=== PATIENT | male | born 1960 | race Caucasian/White ===

== ENCOUNTER 2023-08-09 13:18 | Outpatient (OUT) | payer BC, SELFPAY ==
--- NOTE | 2023-08-09 14:29 | P.CN_ITS ---
Consult Note: HPI Data of Consult Patient: new to practice Consult date: 08/09/23 Requesting Physician: Lizabeth Nash MD Primary Care Provider: SAAD DIAS Consult Narrative Reason for consult: right knee pain Narrative: 62yom who presents for evaluation. longstanding right knee pain, worsened in past several months. has been told he needs replacement, but he is trying to prolong. has had right knee steroid injections, with waning benefit. has tried various otc meds, with minimal benefit. engages in provider directed home exercise program for >6 weeks, with minimal relief. denies adverse med side effects. cc:: CC: Lizabeth Nash MD Review of Systems ROS Status of ROS 10 or more systems reviewed and unremark able except as noted in history and below Meds Home Medications and Allergies Home Medications ?Medication ?Instructions ?Recorded ?Confirmed ?Type VOLTERAN GEL DAILY 08/09/23 History irbesartan 150 2 tab PO DAILY 08/09/23 08/09/23 History mg-hydrochlorothiazide 12.5 mg tablet mirabegron 25 mg tablet,extended 25 mg PO DAILY 08/09/23 08/09/23 History release 24 hr (Myrbetriq) lyraewaw-je-vlyyl 300 mcg-K 60 1 tab PO DAILY 08/09/23 08/09/23 History mcg-lycop 600 mcg-lutein 300 mcg tablet (Centrum Silver Ultra Men's) Allergies Allergy/AdvReac Type Severity Reaction Status Date / Time No Known Drug Allergies Allergy Verified 08/09/23 14:24 Exam Narrative Exam Narrative: Psych-alert and oriented x 3.? Attentive and appropriate, constitutionally normal, displays normal mood and af fect per situation.? There are no obvious deficits in memory, reasoning, or intellect. Extremities-lower extremities are warm with minimal edema and palpable pulses. Knee-examination of the right knee reveals tenderness to palpation over the superior, inferior, lateral, and medial aspect of the knee.? Some swelling is noted without erythema. Pain is elicited with flexion and extension of the knee both actively and passively.? Some grinding is noted with these motions.? There is no notable ligamental laxity or instability.? Coordination remains intact.? Gait remains antalgic. Assessment and Plan Assessment and Plan (1) Osteoarthritis of right knee: Qualifiers: Osteoarthritis type: primary Qualified Code(s): M17.11 - Unilateral primary osteoarthritis, right knee Plan 62yom who presents for evaluation. failed conservative measures, as noted. imaging reviewed, significant for right knee osteoarthritis. given failure of steroid and conservative measures, prudent to attempt right knee KELLY injection. he is in agreement. meds reviewed, no changes at this time. will consider genicular nb if gel fails. follow up for in office injection.
== END 2023-08-09 13:19 | disposition home or self-care (01) ==
LOC: PM 13:19
PROVIDERS: PCP Family Medicine; Visit Provider Anesthesiology
DX: M17.11 Unilateral primary osteoarthritis, right knee (principal)
CPT/HCPCS: G0463

== ENCOUNTER 2023-08-16 15:13 | Outpatient (OUT) | payer BC, SELFPAY ==
--- NOTE | 2023-08-16 15:44 | P.CN_ITS ---
Consult Note: HPI Data of Consult Patient: known to practice within the last 3 years Consult date: 08/16/23 Requesting Physician: Lizabeth Nash MD Primary Care Provider: SAAD DIAS Consult Narrative Reason for consult: right knee pain Narrative: 62yom who presents for in office right knee injection. continues to have right knee pain. cc:: CC: Lizabeth Nash MD Review of Systems ROS Status of ROS 10 or more systems reviewed and unremark able except as noted in history and below Meds Home Medications and Allergies Home Medications ?Medication ?Instructions ?Recorded ?Confirmed ?Type VOLTERAN GEL DAILY 08/09/23 History irbesartan 150 2 tab PO DAILY 08/09/23 08/09/23 History mg-hydrochlorothiazide 12.5 mg tablet mirabegron 25 mg tablet,extended 25 mg PO DAILY 08/09/23 08/09/23 History release 24 hr (Myrbetriq) ovtyanuf-ms-kmgqh 300 mcg-K 60 1 tab PO DAILY 08/09/23 08/09/23 History mcg-lycop 600 mcg-lutein 300 mcg tablet (Centrum Silver Ultra Men's) Allergies Allergy/AdvReac Type Severity Reaction Status Date / Time No Known Drug Allergies Allergy Verified 08/09/23 14:24 Exam Narrative Exam Narrative: Psych-alert and oriented x 3.? Attentive and appropriate, constitutionally normal, displays normal mood and affect per situation.? There are no obvious deficits in memory, reasoning, or intellect. Extremities-lower extremities are warm with minimal edema and palpable pulses. Knee-examination of the right knee reveals tenderness to palpation over the superior, inferior, lateral, and medial aspect of the knee.? Some swelling is noted without erythema. Pain is elicited with flexion and extension of the knee both actively and passively.? Some grinding is noted with these motions.? There is no notable ligamental laxity or instability.? Coordination remains intact.? Gait remains antalgic. Assessment and Plan Assessment and Plan (1) Osteoarthritis of right knee: Qualifiers: Osteoarthritis type: primary Qualified Code(s): M17.11 - Unilateral primary osteoarthritis, right knee Plan 62yom who presents for in office injection. risks and benefits reviewed, questions answered. follow up after procedure. Procedure: Right knee injection Medications: Durolane (KELLY) I explained the details of the procedure to the patient including the risks, benefits and alternatives. We had an informed discussion and the patient verbalized understanding and signed the consent form. All questions were answered appropriately.? A time out was performed.? After obtaining a comfortable seated position, the right knee was prepped with alcohol x3. A syringe containing the above medication was attached to a 25 guage, 1.5 inch needle under strict aseptic technique. The lateral tibial plateau was palpated.? The needle was then advanced through the subcutaneous tissue in a medial and superior direction towards the joint space.? The contents of the syringe were gently injected without any resistance. The needle was removed and pressure was applied to the injection site to decrease the incidence of ecchymosis and hematoma formation.? A sterile bandage was applied.
== END 2023-08-16 15:14 | disposition home or self-care (01) ==
LOC: PM 15:13
PROVIDERS: PCP Family Medicine; Visit Provider Anesthesiology
DX: M17.11 Unilateral primary osteoarthritis, right knee (principal)
CPT/HCPCS: 20610; J7318

== ENCOUNTER 2024-08-02 16:16 | Outpatient (RCR) | payer BC, SELFPAY | END 2024-09-05 07:18 | disposition home or self-care (01) | LOC: PT 16:16 | PROVIDERS: PCP Family Medicine; Visit Provider Orthopaedic Surgery | DX: M25.561 Pain in right knee (principal); M17.11 Unilateral primary osteoarthritis, right knee | CPT/HCPCS: 97110; 97112; 97140; 97163 ==

== ENCOUNTER 2024-11-10 09:05 | Outpatient (OUT) | payer BC, SELFPAY ==
--- NOTE | 2024-11-10 09:15 | XR_ITS ---
[facility] [place] [id number] Patient Name: GLORIA MEDINA MRN: [id number] date: 1960 Sex: M Assigned Patient Location: [facility] Current Patient Location: [facility] Accession/Order Number: [id number] Exam Date: 11/10/2024 10:04 Report Date: 11/10/2024 10:25 At the request of: JESSE ARAGNO NP Procedure: XR knee LT 4V LEFT KNEE - 4 views CLINICAL DATA: Left knee pain for the past week. No injury. COMPARISON: Right knee 04/08/2021 Weightbearing AP view of both knees as well as AP, lateral and oblique views on the left were obtained. No acute fracture or dislocation is identified. There is no disproportionate joint space narrowing. There is minor squaring off of the articular margins at the posterior patella. A tiny enthesophyte is visualized at the insertion of the quadriceps tendon. The right knee is included on the AP view and there is narrowing at the medial tibiofemoral joint compartment with minor developing subchondral lucency at the periphery of the medial femoral condyle and marginal spurring. There is a small knee effusion. No focal soft tissue swelling is noted. XR/XR knee LT 4V IMPRESSION: MINOR LEFT AND WORSENING RIGHT DEGENERATIVE CHANGE. NO ACUTE BONY FINDINGS. Impression dictated by: Breana Pope M.D. 11/10/2024 10:25 AM Dictation Location: [place] [id number] Electronically authenticated by: [id number] Y Date: 11/10/2024 10:25
--- OUTSIDE RECORDS SUMMARY | 2024-11-10 09:29 | XMS_ITS | CCD ---
Author Organization [facility] Care Team Providers Care Bufferer Name Role Phone GHANSHYAM GUILLORY Primary Care Physician Gina Pino Unavailable GHANSHYAM GUILLORY Primary Care Physician PAY ., DR DHILLON Attending Unavailable PAY ., DR DHILLON Admitting Unavailable GUILLORY ., DR GHANSHYAM Hopkins Primary Care Unavailable GUILLORY ., DR GHANSHYAM Hopkins Admitting Unavailable GUILLORY ., DR GHANSHYAM Hopkins Attending Unavailable GUILLORY ., DR GHANSHYAM Hopkins Consulting Unavailable GUSTAVO ., DR GHANSHYAM Hopkins Primary Care Unavailable Jemal Gill Primary Care Physician [phone] SANDRA GALVEZ Attending Unavailable KIANNA WANG Attending Unavailable KIANNA WANG Referring Unavailable Charity JEROME, Lizabeth Mendoza Attending Unavailable Charity JEROME, Lizabeth Mendoza Attending Unavailable MD Jemal Gill Referring Unavailable MD Jemal Gill Admitting Unavailable MD Jemal Gill Attending Unavailable MD Jemal Gill Admitting Unavailable MD Jmeal Gill Attending Unavailable Benitez Avina Attending Unavailable MD Jemal Gill Referring Unavailable MD Jemal Gill Attending Unavailable MD Jemal Gill Attending Unavailable MD Jemal Gill Attending Unavailable MD Jemal Gill Attending Unavailable MD Jemal Gill Attending Unavailable MD Jemal Gill Attending Unavailable Mercedez Polanco Attending Unavailable Tien Kelly II Attending UnavailTien Wynn II Admitting UnavailJemal Gongora Primary Care Unavailable Pacheco Mott Attending Unavailable Pacheco Mott Attending Unavailable Pacheco Mott Attending Unavailable Al Shwe[place], Pacheco Referring Unavailable Jemal Gill Attending Unavailable Jemal Gill Admitting Unavailable Jemal Gill Attending Unavailable Jemal Gill Attending Unavailable Migel Miles MD, Pacheco Unavailable Unavailgus Mott MD, Pacheco Unavailable Julio hopkins Allergies Allergy Classification Reported Allergen(s) Allergy Type Date of Onset Reaction(s) Facility (2 sources) No Known Medication Allergies; Translations: [No Known Medication Allergies] Propensity to adverse reactions (disorder) [facility] Repository Medications Current Medications Medication Drug Class(es) Dates Sig (Normalized) Sig (Original) amLODIPine 2.5 mg oral tablet (2 sources) Dihydropyridine Calcium Channel Ricardo take 1 tablet by mouth once daily Norvasc 2.5 mg tablet take 1 tablet by oral route every day 2.5 MG - Active betamethasone 0.5 mg/ml / clotrimazole 10 mg/ml topical cream (2 sources) Azole Antifungal, Corticosteroid Start: 12-16-2023 betamethasone- clotrimazole Top 0.05%-1% Crm 15 gram 1 elba, Topical, BID, 45 gram, Refill(s) 0, [facility] #[id number], 190, cm, 12/16/23 7:03:00 EDT, Height/Length Dosing, 112.5, kg, 12/16/23 7:03:00 EDT, Weight Dosing Start Date: 12/16/23 Status: Ordered CoQ10 (1 source) Start: 03-12-2021 take 1 mg by mouth once daily CoQ10 mg, Oral, Daily, Refills(s) 0 Start Date: 03/12/21 Status: Ordered diazePAM 10 mg oral tablet (4 sources) Benzodiazepine Start: 08-12-2022 take 1 tablet by mouth once daily as needed for anxiety Valium 10 mg Tab 10 mg = 1 tab(s), Oral, Daily, PRN for anxiety, TAKE 1 HOUR PRIOR TO SCHEDULED PROCEDURE, # 1 tab(s), Refills(s) 0, Pharmacy: [facility] #[id number], 190, cm, 07/29/22 15:30:00 EDT, Height/Length Dosing, 112, kg, 07/29/22 15:30:00 EDT, Weight Dosing Start Date: 08/12/22 Status: Ordered diclofenac sodium 0.01 mg/mg topical gel (6 sources) Nonsteroidal Anti-inflammatory Drug Start: 10-19-2022 Voltaren Gel 1% Gel See Instructions, Refill(s) 0, apply small amount to knee daily Start Date: 10/19/22 Status: Ordered hydroCHLOROthiazide 12.5 mg / irbesartan 150 mg oral tablet (14 sources) Thiazide Diuretic, Angiotensin 2 Receptor Ricardo Start: 07-22-2023 take 2 tablets by mouth once daily hydrochlorothi azide-irbesart an 12.5 mg-150 mg Tab See Instructions, 180 tab(s), Refill(s) 1, TAKE 2 TABLETS BY MOUTH EVERY DAY, [id number], 190, cm, 07/22/23 7:03:00 EST, Height/Length Dosing, 111.4, kg, 07/22/23 7:03:00 EST, Weight Dosing Start Date: 07/22/23 Status: Ordered Start: 03-01-2023 hydrochlorothi azide-irbesartan 12.5 mg-150 mg Tab See Instructions, 180 tab(s), Refill(s) 1, TAKE 2 TABLETS BY MOUTH EVERY DAY, [id number], 190, cm, 03/01/23 11:49:00 EDT, Height/Length Dosing, 110.3, kg, 03/01/23 11:49:00 EDT, Weight Dosing Start Date: 03/01/23 Status: Ordered Start: 12-30-2022 hydrochlorothi azide-irbesartan 12.5 mg-150 mg Tab See Instructions, 60 tab(s), Refill(s) 1, TAKE 2 TABLETS BY MOUTH EVERY DAY, [id number], 190.5, cm, 10/19/22 16:42:00 EDT, Height/Length Dosing, 111.6, kg, 10/19/22 16:42:00 EDT, Weight Dosing Start Date: 12/30/22 Status: Ordered Start: 03-12-2021 hydrochlorothi azide-irbesartan 12.5 mg-150 mg Tab 2 tab(s), Oral, Daily, 90 tab(s), Refill(s) 0, [id number], 190.5, cm, 10/19/22 16:42:00 EDT, Height/Length Dosing, 111.6, kg, 10/19/22 16:42:00 EDT, Weight Dosing Start Date: 10/19/22 Status: Ordered irbesartan 150 mg oral tablet (1 source) Angiotensin 2 Receptor Ricardo take 1 tablet by mouth every twenty-four hours Irbesartan 150 MG 1 tablet Orally Once a day Active 24 hr mirabegron 25 mg extended release oral tablet (6 sources) beta3-Adrenergic Agonist Start: 4 End: 5 take 1 tablet by mouth once daily mirabegron 25 mg oral tablet, extended release 25 mg = 1 tab(s), Oral, Daily, X 30 day(s), # 30 tab(s), Refills(s) 11, Pharmacy: [id number], 190, cm, 02/16/24 10:11:00 EDT, Height/Length Dosing, 111, kg, 02/16/24 10:11:00 EDT, Weight Dosing Start Date: 02/16/24 Stop Date: 02/10/25 Status: Ordered Start: 01-28-2023 End: 01-23-2024 take 1 tablet by mouth once daily Myrbetriq 25 mg oral tablet, extended release 25 mg = 1 tab(s), Oral, Daily, X 30 day(s), # 30 tab(s), Refills(s) 11, Pharmacy: [id number], 190, cm, 01/28/23 13:16:00 EDT, Height/Length Dosing, 111, kg, 01/28/23 13:16:00 EDT, Weight Dosing Start Date: 01/28/23 Stop Date: 01/23/24 Status: Ordered Multi For Him (1 source) Multi For Him Active Multi Vitamin+ (12 sources) Start: 1 Multi Vitamin+ Refill(s) 0 Start Date: 03/12/21 Status: Ordered Multivitamin preparation (2 sources) take 1 capsule by mouth once daily naproxen sodium 220 mg oral capsule (2 sources) Nonsteroidal Anti-inflammatory Drug Start: 1 take 1 mg by mouth every twelve hours Aleve 220 mg oral capsule mg cap(s), Oral, q12hr, Refills(s) 0 Start Date: 03/12/21 Status: Ordered End: 08-30-2024 Aleve 220 mg tablet once jack ly - No Longer Active oxybutynin chloride 5 mg oral tablet (4 sources) Cholinergic Muscarinic Antagonist Start: 08-24-2022 take 1 tablet by mouth once daily oxybutynin 5 mg Tab 5 mg = 1 tab(s), Oral, Daily, stop if having difficulty voiding, # 30 tab(s), Refills(s) 0, Pharmacy: [facility] #[id number], 190, cm, 08/17/22 14:16:00 EDT, Height/Length Dosing, 112, kg, 07/29/22 15:30:00 EDT, Weight Dosing Start Date: 08/24/22 Status: Ordered Paxlovid (300/100) (1 source) Paxlovid (300/10 0) Active tamsulosin hydrochloride 0.4 mg oral capsule (3 sources) alpha-Adrenergic Ricardo Start: 02-05-2022 take 1 capsule by mouth once daily at bedtime tamsulosin 0.4 mg Cap 0.4 mg = 1 cap(s), Oral, Bedtime, Pt. to take daily at bedtime., # 90 cap(s), Refills(s) 3, Pharmacy: [facility] #[id number], 190, cm, 08/20/21 9:08:00 EDT, Height/Length Dosing, 112, kg, 08/20/21 9:08:00 EDT, Weight Dosing Start Date: 02/05/22 Status: Ordered Start: 03-12-2021 take 1 capsule by [facility] once daily at bedtime tamsulosin 0.4 mg Cap 0.4 mg = 1 cap(s), Oral, Bedtime, Pt. to take daily at bedtime., # 90 cap(s), Refills(s) 3, [id number], cm, 03/12/21 8:36:00 EDT, Height/Length Dosing Start Date: 03/12/21 Status: Ordered Tamsulosin HCl A ctive Problems Active Problems Problem Classification Problem Date Documented Date Episodic/Chronic Alcohol-related disorders (5 sources) Alcohol abuse 03-01-2023 Chronic Cardiac dysrhythmias (5 sources) Cardiac arrhythmia 03-01-2023 Chronic Cataract (11 sources) Age-related nuclear cataract, bilateral; Translations: [Senile nuclear sclerosis] Onset: Chronic Disorders of lipid metabolism (7 sources) Hypercholesterolemia 10-15-2022 Chronic Essential hypertension (14 sources) Hypertensive disorder; Translations: [Essential hypertension] Onset: 5 03-12-2021 Chronic Genitourinary symptoms and ill-defined conditions (16 sources) Urge incontinence; Translations: [Urge incontinence of urine] Onset: 2 Chronic Genitourinary symptoms and ill-defined conditions (20 sources) Nocturia; Translations: [Nocturia] Onset: 2 Episodic Glaucoma (5 sources) Preglaucoma, unspecified, bilateral; Translations: [Glaucoma suspect, both eyes] Onset: 5 Chronic Hyperplasia of prostate (19 sources) Benign prostatic hypertrophy with outflow obstruction; Translations: [Benign prostatic hyperplasia with lower urinary tract symptoms] Onset: 2 Chronic Miscellaneous mental health disorders (1 source) Male erectile disorder; Translations: [Erectile dysfunction] Onset: 2 Chronic Mycoses (2 sources) Tinea cruris 12-16-2023 Episodic Osteoarthritis (20 sources) Arthritis; Translations: [Bilateral osteoarthritis of knees] Onset: 5 03-12-2021 Chronic Other and unspecified benign neoplasm (7 sources) Polyp of colon 10-15-2022 Episodic Other and unspecified benign neoplasm (4 sources) Benign neoplasm of choroid Episodic Other connective tissue disease (7 sources) Prepatellar bursitis 10-15-2022 Episodic Other connective tissue disease (1 source) Pain in lower limb 07-17-2024 Episodic Other diseases of bladder and urethra (2 sources) Detrusor overactivity; Translations: [Overactive bladder] Onset: 3 Chronic Other diseases of bladder and urethra (6 sources) Overactive bladder 01-28-2023 Chronic Other diseases of kidney and ureters (2 sources) Urinary tract obstruction; Translations: [Other obstructive and reflux uropathy] Onset: 3 Episodic Other ear and sense organ disorders (7 sources) Hearing loss 10-19-2022 Chronic Other eye disorders (3 sources) Unspecified chorioretinal scars, left eye; 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] Onset: 5 Chronic Other eye disorders (2 sources) Peripheral chorioretinal scar Onset: 4 04-02-2014 Chronic Other eye disorders (2 sources) Chorioretinal scar of left eye; 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] Chronic Other eye disorders (4 sources) Peripheral scars Chronic Other lower respiratory disease (7 sources) Dyspnea 10-19-2022 Episodic Other male genital disorders (13 sources) Impotence 03-12-2021 Chronic Other non-traumatic joint disorders (1 source) Pain in right knee; Translations: [Pain in right knee] Onset: 4 Episodic Other nutritional; endocrine; and metabolic disorders (1 source) Obese class I; Translations: [Body mass index (BMI) 30.0-30.9, adult] Onset: 5 Chronic Other nutritional; endocrine; and metabolic disorders (1 source) Obesity; Translations: [Obesity, unspecified] Onset: 5 Chronic Other nutritional; endocrine; and metabolic disorders (2 sources) Body mass index 30+ - obesity 09-11-2024 Chronic Other screening for suspected conditions (not mental disorders or infectious disease) (2 sources) Encounter for screening for malignant neoplasm of prostate; Translations: [Screening for malignant neoplasm done] Onset: 2 Episodic Residual codes; unclassified (4 sources) Procedure and treatment not carried out due to patient leaving prior to being seen by health care provider; Translations: [PROC AND TX NOT CARRIED OUT PT LEAVE] Onset: 3 Episodic Residual codes; unclassified (5 sources) Sleep disorder 03-01-2023 Episodic Residual codes; unclassified (1 source) Patient encounter status; Translations: [Other specified health status] Onset: 5 Episodic Retinal detachments; defects; vascular occlusion; and retinopathy (20 sources) Secondary pigmentary retinal degeneration; 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] Onset: 4 04-02-2014 Chronic Screening and history of mental health and substance abuse codes (13 sources) Ex-smoker 03-12-2021 Episodic Spondylosis; intervertebral disc disorders; other back problems (1 source) Backache; Translations: [Dorsalgia, unspecified] Onset: 5 Episodic Unclassified (13 sources) Patient encounter status 08-10-2022 Unclassified (2 sources) Finding of sensation of bladder 02-16-2024 Unclassified (1 source) Non-smoker 09-11-2024 Past or Other Problems Problem Classification Problem Date Documented Da te Episodic/Chronic Other and unspecified benign neoplasm (2 sources) Benign neoplasm of choroid Onset: 04-02-2014 04-02-2014 Episodic Unclassified (1 source) Exposure to COVID-19 virus Z20.822 Unclassified (2 sources) Retinal lesion (chief complaint) Onset: 09-01-2024 Unclassified (2 sources) changes in retinal vascular appearance (chief complaint) stable vision (chief complaint) Onset: 11-21-2019 Unclassified (2 sources) retinal evaluation (chief complaint) stable vision (chief complaint) Onset: 09-26-2018 Unclassified (2 sources) benign neoplasm (chief complaint) good, stable vision since last seen (chief complaint) (chief complaint) Onset: 04-02-2014 Viral infection (1 source) COVID-19 Results Test Name Value Interpretation Reference Range Facil ity Ambulatory Visit Summaryon 0 09-11-2024 Ambulatory Visit Summary Ambulatory Visit Summary NGHIA MEDINA :1960 Visit Date:09/11/2024 Ambulatory Visit Instructions Your Diagnosis BMI 30.0-30.9,adult Obesity (BMI 30-39.9) Nonsmoker Your Care Team Attending Physician - Jemal Gill MD Primary Care Physician - Jemal Gill MD This Is Your Medications List amlodipine (Norvasc 5 mg Tab) betamethasone-clotrima zole topical (betamethasone-clotrim azole Top 0.05%-1% Crm 15 gram) diclofenac topical (Voltaren Gel 1% Gel) hydrochlorothiazide-ir besartan (hydrochlorothiazide-i rbesartan 12.5 mg-150 mg Tab) mirabegron (mirabegron 25 mg oral tablet, extended release) multivitamin (Multi Vitamin+) Procedures Performed Arthroscopy of shoulder, Colonoscopy, Partial ostectomy of metatarsal bone, Vasectomy. Discharge Vitals Temperature (Tympanic) 36.8 ???C Heart Rate (Peripheral) 68 Respiratory Rate 18 Blood Pressure 120/76 Height 190 cm Height 75 in Weight 111.52 kg Weight 245.859 lb BMI 30.89 Medications What How Much When Why Instructions Unchanged amlodipine (Norvasc 5 mg Tab) 1 Tablets By Mouth Every day Leg pain Hypertension Hypercholesteremia Former smoker Unchanged betamethasone-clotrima zole topical (betamethasone-clotrim azole Top 0.05%-1% Crm 15 gram) 1 Application Topical 2 times a day Jock itch BMI 31.0-31.9,adult Class 1 obesity due to excess calories in adult Former smoker Unchanged diclofenac topical (Voltaren Gel 1% Gel) See instructions apply small amount to knee daily Unchanged hydrochlorothiazide-ir besartan (hydrochlorothiazide-i rbesartan 12.5 mg-150 mg Tab) See instructions TAKE 2 TABLETS BY MOUTH EVERY DAY Unchanged mirabegron (mirabegron 25 mg oral tablet, extended release) 1 Tablets By Mouth Every day Duration: 30 Days Unchanged multivitamin (Multi Vitamin+) Allergies No Known Medication Allergies Problems Ongoing - Any problem that you are currently receiving treatment for. Alcohol abuse Arrhythmia Arthritis BMI 30.0-30.9,adult BPH with urinary obstruction Bursitis, prepatellar, right Colon polyps Former smoker Hearing loss Hypercholesteremia Hypertension Incomplete bladder emptying Jock itch Leg pain Localized osteoarthritis of knees, bilateral Nocturia Nonsmoker OAB (overactive bladder) Obesity (BMI 30-39.9) Prostate cancer screening Sleep disorder SOB (shortness of breath) Historical - Any problem that you are no longer receiving treatment for. ED (erectile dysfunction) Urge incontinence Patient Survey You may receive a survey via text or e-mail asking about your office visit. Please share your experience with us by completing your survey. We appreciate your feedback and thank you for choosing us for your care. Normal [facility] Family Medicine Office/Clini c Noteon 09-11-2024 Family Medicine Office/Clinic Note Family Medicine Office/Clinic Note Chief Complaint 2m follow up HPI Staff 2m followup to starting Norvasc therapy for HTN. Has been keeping track of BP. Average is 120/70. History of Present Illness See staff HPI Review of Systems PHQ Score Initial Depression Screen Score: 0 SCORE Physical Exam Vitals & Measurements T: 36.8 ???C(Tympanic) HR: 68(Peripheral) RR: 18 BP: 120/76 SpO2: 95% HT: 75 in HT: 190 cm WT: 111.52 kg WT: 245.859 lb BMI: 30.89 General: alert, no acute distress ENMT: oral mucosa moist, Cardiovascular: regular rate and rhythm, normal peripheral perfusion Respiratory: Lungs CTA, respirations non labored Extremities: no deformity, no trauma Neurological: oriented x 4, LOC appropriate for age, CN II-XII intact, motor strength equal & normal bilaterally, speech normal Abdomen: Soft, Nontender, Non-distended, + BS Assessment/Plan 1. Hypertension (I10: Essential (primary) hypertension) At goal no issues at this time. Continue on the [facility]. Ordered: amlodipine, 5 mg = 1 tab(s), Oral, Daily, # 90 tab(s), Refills(s) 0, Pharmacy: [facility], 190, cm, 09/11/24 17:19:00 EDT, Height/Length Dosing, 111.5, kg, 09/11/24 17:19:00 EDT, Weight Dosing 2. BMI 30.0-30.9,adult (Z68.30: Body mass index [BMI] 30.0-30.9, adult) BMI education added 3. Obesity (BMI 30-39.9) (E66.9: Obesity, unspecified) Diet and exercise advised 4. Nonsmoker (Z78.9: Other specified health status) Please continue not to smoke 5. Localized osteoarthritis of knees, bilateral (M17.0: Bilateral primary osteoarthritis of knee) Continue to see Ortho. Continue working on the back and then discuss plans for the knees. 6. Back pain (M54.9: Dorsalgia, unspecified) Patient is working through physical therapy and MRI before moving to see if back surgery is the right plan for him. Orders: hydrochlorothiazide-ir besartan, See Instructions, 180 tab(s), Refill(s) 4, TAKE 2 TABLETS BY MOUTH EVERY DAY, [facility], 190, cm, 09/11/24 17:19:00 EDT, Height/Length Dosing, 111.5, kg, 09/11/24 17:19:00 EDT, Weight Dosing Follow-up No qualifying data available Problem List/Past Medical History Ongoing Alcohol abuse Arrhythmia Arthritis BMI 30.0-30.9,adult BPH with urinary obstruction Bursitis, prepatellar, right Colon polyps Former smoker Hearing loss Hypercholesteremia Hypertension Incomplete bladder emptying Leg pain Localized osteoarthritis of knees, bilateral Nocturia Nonsmoker OAB (overactive bladder) Obesity (BMI 30-39.9) Prostate cancer screening Sleep disorder SOB (shortness of breath) Historical ED (erectile dysfunction) Urge incontinence Procedure/Surgical History Arthroscopy of shoulder, Colonoscopy, Partial ostectomy of metatarsal bone, Vasectomy. Medications betamethasone-clotrima zole Top 0.05%-1% Crm 15 gram, 1 elba, Topical, BID hydrochlorothiazide-ir besartan 12.5 mg-150 mg Tab, See Instructions, 4 refills mirabegron 25 mg oral tablet, extended release, 25 mg= 1 tab(s), Oral, Daily, 11 refills Multi Vitamin+ Norvasc 5 mg Tab, 5 mg= 1 tab(s), Oral, Daily Voltaren Gel 1% Gel, See Instructions Allergies No Known Medication Allergies Social History Alcohol Current. Beer. Daily., 07/17/2024 Substance Abuse Never., 07/17/2024 Tobacco Former smoker, quit more than 30 days ago Tobacco Use:. Never Smokeless Tobacco Use:. Cigarettes, Household tobacco concerns: No. Yes, 09/11/2024 Family History Alcoholism: Father. Arthritis: Mother. Cancer: Father. Primary malignant neoplasm of lung: Mother. Immunizations Vaccine Date Status Comments influenza virus vaccine, inactivated 03/31/2024 Recorded influenza virus vaccine, inactivated 02/22/2023 Recorded SARS-CoV-2 (COVID-19) [id number] 03/17/2022 Recorded influenza virus vaccine, inactivated 04/29/2021 Recorded influenza virus vaccine, inactivated 04/22/2021 Recorded SARS-CoV-2 (COVID-19) mRNA BNT-162b2 vax 04/16/2021 Recorded SARS-CoV-2 (COVID-19) mRNA BNT-162b2 vax 2020 Recorded 2022-07-29: [id number] SARS-CoV-2 (COVID-19) Ad26 vaccine 08/18/2020 Recorded SARS-CoV-2 (COVID-19) mRNA BNT-162b2 vax 07/31/2020 Recorded 2022-07-29: [id number] SARS-CoV-2 (COVID-19) Ad26 vaccine 07/17/2020 Recorded influenza virus vaccine, inactivated 04/06/2018 Recorded influenza virus vaccine, inactivated 04/18/2017 Recorded Normal [facility] Comment on above: Result Comment: Elec tronically Signed By: Jairo JEROME, Jemal Anderson\.br\Date and Time Signed: 09/11/24 17:47 EDT Ambulatory Visit Summaryon 0 07-17-2024 Ambulatory Visit Summary Ambulatory Visit Summary NGHIA MEDINA :1960 Visit Date:07/17/2024 Ambulatory Visit Instructions Your Diagnosis Leg pain Hypertension Hypercholesteremia Former smoker Your Care Team Attending Physician - Jemal Gill MD Primary Care Physician - Jemal Gill MD This Is Your Medications List amlodipine (Norvasc 5 mg Tab) betamethasone-clotrima zole topical (betamethasone-clotrim azole Top 0.05%-1% Crm 15 gram) diclofenac topical (Voltaren Gel 1% Gel) hydrochlorothiazide-ir besartan (hydrochlorothiazide-i rbesartan 12.5 mg-150 mg Tab) mirabegron (mirabegron 25 mg oral tablet, extended release) multivitamin (Multi Vitamin+) Procedures Performed Arthroscopy of shoulder, Colonoscopy, Partial ostectomy of metatarsal bone, Vasectomy. Discharge Vitals Heart Rate (Peripheral) 72 Respiratory Rate 16 Blood Pressure 152/86 Height 190 cm Height 75 in Weight 110.2 kg Weight 242.949 lb BMI 30.53 Medications What How Much When Why Instructions New amlodipine (Norvasc 5 mg Tab) 1 Tablets By Mouth Every day Leg pain Hypertension Hypercholesteremia Former smoker Pickup at [facility] Unchanged betamethasone-clotrima zole topical (betamethasone-clotrim azole Top 0.05%-1% Crm 15 gram) 1 Application Topical 2 times a day Jock itch BMI 31.0-31.9,adult Class 1 obesity due to excess calories in adult Former smoker Unchanged diclofenac topical (Voltaren Gel 1% Gel) See instructions apply small amount to knee daily Unchanged hydrochlorothiazide-ir besartan (hydrochlorothiazide-i rbesartan 12.5 mg-150 mg Tab) See instructions TAKE 2 TABLETS BY MOUTH EVERY DAY Unchanged mirabegron (mirabegron 25 mg oral tablet, extended release) 1 Tablets By Mouth Every day Duration: 30 Days Unchanged multivitamin (Multi Vitamin+) Pharmacy Information [facility]: [address] [place], [place] [id number] [phone] Allergies No Known Medication Allergies Problems Ongoing - Any problem that you are currently receiving treatment for. Alcohol abuse Arrhythmia Arthritis BPH with urinary obstruction Bursitis, prepatellar, right Colon polyps Former smoker Hearing loss Hypercholesteremia Hypertension Incomplete bladder emptying Jock itch Leg pain Localized osteoarthritis of knees, bilateral Nocturia OAB (overactive bladder) Prostate cancer screening Sleep disorder SOB (shortness of breath) Historical - Any problem that you are no longer receiving treatment for. ED (erectile dysfunction) Urge incontinence Patient Survey You may receive a survey via text or e-mail asking about your office visit. Please share your experience with us by completing your survey. We appreciate your feedback and thank you for choosing us for your care. [facility] Ambulatory Visit Summary Ambulatory Visit Summary NGHIA MEDINA :1960 Visit Date:07/17/2024 Ambulatory Visit Instructions Your Diagnosis Leg pain Hypertension Hypercholesteremia Former smoker Your Care Team Attending Physician - Jemal Gill MD Primary Care Physician - Jemal Gill MD. This Is Your Medications List amlodipine (Norvasc 5 mg Tab) betamethasone-clotrima zole topical (betamethasone-clotrim azole Top 0.05%-1% Crm 15 gram) diclofenac topical (Voltaren Gel 1% Gel) hydrochlorothiazide-ir besartan (hydrochlorothiazide-i rbesartan 12.5 mg-150 mg Tab) mirabegron (mirabegron 25 mg oral tablet, extended release) multivitamin (Multi Vitamin+) Procedures Performed Arthroscopy of shoulder, Colonoscopy, Partial ostectomy of metatarsal bone, Vasectomy. Discharge Vitals Heart Rate (Peripheral) 72 Respiratory Rate 16 Blood Pressure 152/86 Height 190 cm Height 75 in Weight 110.2 kg Weight 242.949 lb BMI 30.53 Allergies No Known Medication Allergies Problems Ongoing - Any problem that you are currently receiving treatment for. Alcohol abuse Arrhythmia Arthritis BPH with urinary obstruction Bursitis, prepatellar, right Colon polyps Former smoker Hearing loss Hypercholesteremia Hypertension Incomplete bladder emptying Jock itch Leg pain Localized osteoarthritis of knees, bilateral Nocturia OAB (overactive bladder) Prostate cancer screening Sleep disorder SOB (shortness of breath) Historical - Any problem that you are no longer receiving treatment for. ED (erectile dysfunction) Urge incontinence Patient Survey You may receive a survey via text or e-mail asking about your office visit. Please share your experience with us by completing your survey. We appreciate your feedback and thank you for choosing us for your care. Normal [facility] Family Medicine Office/Clini c Noteon 07-17-2024 Family Medicine Office/Clinic Note Family Medicine Office/Clinic Note Chief Complaint Difficulty moving legs in the morning due to pain and muscle tightness. HPI Staff 6m follow up Patient is here for follow up on hypertension. How often are you checking your blood pressure? Daily What are your average readings? _111-150/ 57-88 Yearly BMP: 01/27/24 BUN: 19 mg/dL (01/27/24 07:49:00) Calcium Lvl: 9.1 mg/dL (01/27/24 07:49:00) Chloride: 102 mmol/L (01/27/24 07:49:00) CO2: 28 mmol/L (01/27/24 07:49:00) Creatinine: 0.8 mg/dL (01/27/24 07:49:00) eGFR: 99 mL/min/1.73 m2 (01/27/24 07:49:00) Glucose Lvl: 97 mg/dL (01/27/24 07:49:00) Potassium Lvl: 4.2 mmol/L (01/27/24 07:49:00) Sodium Lvl: 137 mmol/L (01/27/24 07:49:00) Patient is here for follow up on hyperlipidemia: Do you have side effects from the medication? no Refill needed?: _ Yearly Lipid labs: 01/27/24 Chol: 203 mg/dL High (01/27/24 07:49:00) HDL: 79 mg/dL (01/27/24 07:49:00) LDL Direct: 115 mg/dL (01/27/24 07:49:00) Tri mg/dL (01/27/24 07:49:00) VLDL: 21 mg/dL (01/27/24 07:49:00) Did see [facility] for consultation on possible knee surgery. History of Present Illness The patient is a 63-year-old male presenting with leg pain and hypertension. The leg pain, characterized by morning stiffness and soreness, has been linked to nerve impingement in the back diagnosed by a neurologist, previously managed with epidural injections. The patient mentions being active at work, engaging in roughly 10,000 steps daily, which aggravates his symptoms, relieved by sitting and leg elevation. An MRI was done about four years ago, and former sciatica pain has resolved. Hypertension shows variable home monitoring results, including one notably low measurement linked to missing medication. Consistent elevation of blood pressure readings prompts consideration of adjustments in therapy. Hypercholesterolemia is present but untreated pharmacologically due to concern about muscle symptoms, with management under evaluation. Cardiovascular evaluation via stress testing previously returned stable results. - Regular monitoring of blood pressure at home. - Discussion on adjunctive therapy for hypertension with Norvas consideration. - Review of previous cardiovascular stress testing. Review of Systems PHQ Score Initial Depression Screen Score: 0 SCORE Physical Exam Vitals & Measurements HR: 72(Peripheral) RR: 16 BP: 152/86 SpO2: 97% HT: 75 in HT: 190 cm WT: 110.2 kg WT: 242.949 lb BMI: 30.53 General: alert, no acute distress ENMT: oral mucosa moist Cardiovascular: Regular rate and rhythm, normal peripheral perfusion Respiratory: Lungs clear to auscultation, respirations non labored Extremities: no deformity, no trauma, but reports muscle tightness and soreness in the legs, particularly in the morning Neurological: oriented x 4, level of consciousness appropriate for age, CN II-XII intact, motor strength equal & normal bilaterally, speech normal Abdomen: Soft, Non-tender, Non-distended, + Bowel sounds Assessment/Plan 1. Leg pain (M79.606: Pain in leg, unspecified) Muscle stiffness linked to potential nerve impingement is addressed through recommended physical therapy prioritizing weight-bearing activities to alleviate muscle tightness. Monitoring of therapy outcomes and possible further imaging via MRI may be considered if issues persist. Ordered: amlodipine, 5 mg = 1 tab(s), Oral, Daily, # 90 tab(s), Refills(s) 0, Pharmacy: [facility], 190, cm, 07/17/24 11:42:00 EST, Height/Length Dosing, 110.2, kg, 07/17/24 11:42:00 EST, Weight Dosing 2. Hypertension (I10: Essential (primary) hypertension) Home blood pressure monitoring shows variability, suggesting adding low-dose Norvasc for better control. Scheduled reevaluation in two months will determine effectiveness and modification of therapy. Ordered: amlodipine, 5 mg = 1 tab(s), Oral, Daily, # 90 tab(s), Refills(s) 0, Pharmacy: [facility], 190, cm, 07/17/24 11:42:00 EST, Height/Length Dosing, 110.2, kg, 07/17/24 11:42:00 EST, Weight Dosing 3. Hypercholesteremia (E78.00: Pure hypercholesterolemia, unspecified) Current treatment halted to assess for exacerbation of muscle symptoms. Future re-evaluation for potential therapy once leg pain management pathway is clarified. Ordered: amlodipine, 5 mg = 1 tab(s), Oral, Daily, # 90 tab(s), Refills(s) 0, Pharmacy: [facility], 190, cm, 07/17/24 11:42:00 EST, Height/Length Dosing, 110.2, kg, 07/17/24 11:42:00 EST, Weight Dosing 4. Former smoker (Z87.891: Personal history of nicotine dependence) Please continue to not smoke. Ordered: amlodipine, 5 mg = 1 tab(s), Oral, Daily, # 90 tab(s), Refills(s) 0, Pharmacy: [facility], 190, cm, 07/17/24 11:42:00 EST, Height/Length Dosing, 110.2, kg, 07/17/24 11:42:00 EST, Weight Dosing 63-year-old male with a history of hypertension presenting with leg pain, which he relates to nerve (more content not included)... Normal [facility] Comment on above: Result Comment: Elec tronically Signed By: Jairo JEROME, Jemal [place]\.br\Date and Time Signed: 07/17/24 12:39 EST XR knee RT 4V*on 04-12-2024 XR knee RT 4V* [facility] [address] [place] [address] XRay Report Signed Patient: Nghia Medina MR#: [id number] : 1960 Acct:[id number] Age/Sex: 63 / M ADM Date: 04/12/24 Loc: [facility] Room: Type: [facility] Attending Dr: Tien Kelly II, MD Copies to: Tien Kelly MD Ordering Provider: Tien Kelly MD Date of Service: 04/12/24 XR/XR knee RT 4V*: M25.561 - Pain in right knee ([id number]) XR/XR pelvis 1-2V: M25.561 - Pain in right knee CLINICAL DATA: Anterior medial right knee pain for months with recent worsening. No injury. WEIGHTBEARING AP PELVIS: COMPARISON: None The tops of the iliac crests are not included. No fracture, dislocation or bony destruction is seen. The hip joint spaces are symmetric. There is no significant arthritic change. The SI joints are intact and show minor sclerosis. There are no soft tissue abnormalities. XR/XR pelvis 1-2V IMPRESSION: NO ACUTE BONY FINDINGS. RIGHT KNEE - 4 views COMPARISON: 07/20/2023 Weightbearing AP, lateral, skiers and patellar views were obtained. No acute fractures or dislocation are noted. There is continued moderate to severe narrowing of the medial tibiofemoral joint compartment with near bone to bone contact. Subchondral lucency at the medial femoral condyle is again noted. There is narrowing at the medial patellofemoral joint space. There is no subluxation. There is mild tricompartment marginal spurring. Loose bodies are not excluded posterior to the tibial spines medially. A tiny enthesophyte is noted at the insertion of the quadriceps tendon. A trace amount of joint fluid is seen. IMPRESSION: DEGENERATIVE CHANGES, DESCRIBED. Impression dictated by: Breana Pope M.D.04/12/2024 10:34 AM Dictation Location: [place] [address] Transcribed By: [facility] 04/12/24 1034 Dictated By: Breana Pope MD 04/12/24 1029 Signed By: 04/12/24 1034 [facility] Physician [facility] Urology Office/Clinic Noteon 02-16-2024 Urology Office/Clinic Note Urology Office/Clinic Note Chief Complaint Patient in office for 1 year f/u w/PVR HPI Staff 63 yr old male here for 1 yr f/u w/ PVR. PVR: 03/12/21 - 100 07/29/22 - 116 09/04/22 - 75 urocuff 01/28/23 - 182 02/16/24 - 0 Patient states he does notice improvement since starting on the Myrbetriq at the last office visit. States he has been doing well since the last office visit. Denies any issues/concerns at this time. Dysuria: denies Incomplete bladder emptying: denies Hematuria: denies Frequency: denies Urgency: denies Nocturia: 1 x a night Stream: steady Leaking: denies Post void dripping: denies Wearing pads/ Depends: denies Urge incontinence: denies Stress incontinence: denies Incontinence without Sensory Awareness: denies Abdominal pain: denies Flank pain: denies Sexual complaints: _ History of Present Illness Tests reviewed: reviewed UA, PVR I have reviewed the previous health record information and history for this patient from Dr. Polanco. I have reviewed and verified the staff HPI to be accurate for this encounter. Review of Systems PHQ Score Initial Depression Screen Score: 0 SCORE ROS - Provider Constitutional: denies weight loss, denies hot flashes. Eyes: denies eye problems. Gastrointestinal: denies nausea, denies vomiting. Cardiovascular: denies chest pain or angina. Integumentary: no dryness Musculoskeletal: denies musculoskeletal symptoms. ENMT: denies otolaryngeal symptoms. Respiratory: no shortness of breath. Heme/Lymph: denies easy bleeding tendency, denies easy bruising tendency. Psychiatric: no confusion, no anxiety. Genitourinary: See HPI. Physical Exam Vitals & Measurements HR: 68(Peripheral) BP: 128/74 HT: 75 in HT: 190 cm WT: 111 kg WT: 244.2 lb BMI: 30.75 General Appearance: alert, no distress, well nourished, well developed male. Assessment/Plan 63 year old male here for follow up BPH with LUTS MIKHAIL 24 (24). 1. OAB (overactive bladder) (N32.81: Overactive bladder) Previously was on Oxybutynin 5 mg qd for nocturia but stopped due to SE of dry mouth and thick cough. Started on Myrbetriq ER 25 mg qd at prior OV. Denies SEs. Feels sxs have improved on this medication and does not wish to change regimen. -Cont Myrbetriq ER 25 mg qd. Refills sent today. Call PCP for refills in future. Declined scheduled f/u at this time -Consider Botox or SNM, risks/benefits discussed. Educational pamphlets provided. 2. BPH with urinary obstruction (N40.1: Benign prostatic hyperplasia with lower urinary tract symptoms) PSA (checked by PCP): 01/2021 - 0.96 02/19/22 - 1.01 Cysto/TRUS 08/24/22 - Mild BPH, not significantly obstructing but significantly elevated bladder neck with 2-3+ trabeculated bladder. Prostate volume 20 cc. UroCuff 09/04/22 - Delayed, blunted flow curve without use of Valsalva voiding. Unobstructed nomogram but borderline lower than adequate flow and higher pressure, in the middle of all 4 quadrants. Desire to void 8 at capacity of 225 mL (voided volume of 150 ml, PVR 75 mL). Concern for small bladder capacity with abnormal sensation. IPSS 10 (1). Voiding improved after cysto, may benefit from urolift but not guaranteed. UA today negative for blood and infection. Not taking any prostate meds. - See #1 3. Incomplete bladder emptying (R33.9: Retention of urine, unspecified) PVR (cc): 03/12/21 - 100 07/29/22 - 116 09/04/22 - 75 urocuff 01/28/23 - 182 02/16/24 - 0 Emptying improved. -Timed voids q2-3hr. Follow-up With When Contact Information Collin JEROME, Mercedez Quiroz, URL, URO Only if needed [address] [place] [address]- [phone] Additional Instructions: Declined scheduled f/u at this time Patient Education Overactive Bladder, Adult I, Manju Marie, personally scribed for Dr. Polanco on 02/16/2024 10:24:03. . Documentation recorded by the scribe, Manju Marie, accurately reflects the services(s) I performed and decisions made by me. Authenticated by Dr. Polanco on 02/16/2024 11:20:54. Problem List/Past Medical History Ongoing Alcohol abuse Arrhythmia Arthritis BPH with urinary obstruction Bursitis, prepatellar, right Colon polyps Former smoker Hearing loss Hypercholesteremia Hypertension Incomplete bladder emptying Jock itch Localized osteoarthritis of knees, bilateral Nocturia OAB (overactive bladder) Prostate cancer screening Sleep disorder SOB (shortness of breath) Historical ED (erectile dysfunction) Urge incontinence Procedure/Surgical History Arthroscopy of shoulder, Colonoscopy, Partial ostectomy of metatarsal bone, Vasectomy. Medications betamethasone-clotrima zole Top 0.05%-1% Crm 15 gram, 1 elba, Topical, BID hydrochlorothiazide-ir besartan 12.5 mg-150 mg Tab, See Instructions, 1 refills mirabegron 25 mg oral tablet, extended release, 25 mg= 1 tab(s), Oral, Daily, 11 refills Multi Vitamin+ Voltaren Gel 1% (more content not included)... Normal [facility] Comment on above: Result Comment: Elec tronically Signed By: Mercedez Polanco MD\.br\Date and Time Signed: 02/16/24 11:21 EDT\.br\Electronically Co-Signed By: Manju Marie\.br\Date and Time Co-Signed: 02/16/24 10:24 EDT Ambulatory Visit Summaryon 0 01-27-2024 Ambulatory Visit Summary Ambulatory Visit Summary CAROL, CASTRO :1960 Visit Date:01/27/2024 Ambulatory Visit Instructions Your Diagnosis Arrhythmia Hypertension Sleep disorder BMI 36.0-36.9,adult Class 1 obesity due to excess calories in adult Former smoker Hypercholesteremia SOB (shortness of breath) Your Care Team Attending Physician - Jemal Gill MD Primary Care Physician - Jemal Gill MD This Is Your Medications List betamethasone-clotrima zole topical (betamethasone-clotrim azole Top 0.05%-1% Crm 15 gram) diclofenac topical (Voltaren Gel 1% Gel) hydrochlorothiazide-ir besartan (hydrochlorothiazide-i rbesartan 12.5 mg-150 mg Tab) multivitamin (Multi Vitamin+) nystatin (nystatin 500,000,000 units compounding powder) Procedures Performed Arthroscopy of shoulder, Colonoscopy, Partial ostectomy of metatarsal bone, Vasectomy. Discharge Vitals Temperature (Temporal Artery) 36.3 ?C Heart Rate (Peripheral) 72 Respiratory Rate 16 Blood Pressure 112/76 Height 190 cm Height 75 in Weight 110.0 kg Weight 242 lb BMI 30.47 What to do next Scheduled Follow-Up Appointments Wednesday 9:45 AM EDT With: Collin JEROME, Mercedez Quiroz Where: [facility] [address] [place] [address]- You Need to Complete the Following CBC w/ Auto Diff, Blood, Routine collect, 01/27/24, Order for future visit, Lab Collect, Arrhythmia Hypertension Sleep disorder BMI 36.0-36.9,adult Class 1 obesity due to excess calories in adult Former smoker Hypercholesteremia SOB (shortness of breath),... Comprehensive Metabolic Panel, Blood, Routine collect, 01/27/24, Order for future visit, Lab Collect, Arrhythmia Hypertension Sleep disorder BMI 36.0-36.9,adult Class 1 obesity due to excess calories in adult Former smoker Hypercholesteremia SOB (shortness of breath),... Lipid Panel, Blood, Routine collect, 01/27/24, Order for future visit, Lab Collect, Arrhythmia Hypertension Sleep disorder BMI 36.0-36.9,adult Class 1 obesity due to excess calories in adult Former smoker Hypercholesteremia SOB (shortness of breath),... Medications What How Much When Why Instructions Unchanged betamethasone-clotrima zole topical (betamethasone-clotrim azole Top 0.05%-1% Crm 15 gram) 1 Application Topical 2 times a day Jock itch BMI 31.0-31.9,adult Class 1 obesity due to excess calories in adult Former smoker Unchanged diclofenac topical (Voltaren Gel 1% Gel) See instructions apply small amount to knee daily Unchanged hydrochlorothiazide-ir besartan (hydrochlorothiazide-i rbesartan 12.5 mg-150 mg Tab) See instructions TAKE 2 TABLETS BY MOUTH EVERY DAY Unchanged multivitamin (Multi Vitamin+) Unchanged nystatin (nystatin 500,000,000 units compounding powder) See instructions Please apply to affected area TID. Please supply a 90 days supply. Allergies No Known Medication Allergies Problems Ongoing - Any problem that you are currently receiving treatment for. Alcohol abuse Arrhythmia Arthritis BPH with urinary obstruction Bursitis, prepatellar, right Colon polyps Former smoker Hearing loss Hypercholesteremia Hypertension Incomplete bladder emptying Jock itch Localized osteoarthritis of knees, bilateral Nocturia OAB (overactive bladder) Prostate cancer screening Sleep disorder SOB (shortness of breath) Historical - Any problem that you are no longer receiving treatment for. ED (erectile dysfunction) Urge incontinence Patient Survey You may receive a survey via text or e-mail asking about your office visit. Please share your experience with us by completing your survey. We appreciate your feedback and thank you for choosing us for your care. Normal [facility] CBC w/ Auto Diffon 4 Basophils/100 WBC (Bld) 1.4 % Normal 0.0-2.0 [facility] Comment on above: Performed By: #### 2 [id number] #### [facility] [address] [place] [address] Basophils/Leukocyte s Auto (Bld) [Pure # fraction] 0.1 E9/L Normal 0.0-0.2 [facility] Comment on above: Performed By: #### 2 [id number] #### [facility] [address] [place] [address] Eosinophils (Bld) [#/Vol] 0.4 E9/L Normal 0.0-0.5 [facility] Comment on above: Performed By: #### 2 [id number] #### [facility] [address] [place] [address] Eosinophils/100 WBC (Bld) 6.8 % Normal 0.0-8.0 [facility] Comment on above: Performed By: #### 2 [id number] #### [facility] [address] [place] [address] Erythrocyte distribution width (RBC) [Ratio] 13.6 % Normal 10.9-14.2 [facility] Comment on above: Performed By: #### 2 [id number] #### [facility] [address] [place] [address] Hematocrit (Bld) [Volume fraction] 41.8 % Normal 37.7-49.0 [facility] Comment on above: Performed By: #### 2 [id number] #### [facility] [address] [place] [address] Hemoglobin (Bld) [Mass/Vol] 14.0 g/dL Normal 13.5-17.5 [facility] Comment on above: Performed By: #### 2 [id number] #### [facility] [address] [place] [address] Lymphocytes (Bld) [#/Vol] 1.3 E9/L Normal 1.0-4.0 [facility] Comment on above: Performed By: #### 2 [id number] #### [facility] [address] [place] [address] Lymphocytes/100 WBC (Bld) 20.5 % Normal 14.0-50.0 [facility] Comment on above: Performed By: #### 2 [id number] #### [facility] [address] [place] [address] MCH (RBC) [Entitic mass] 32.5 pg Normal 27.0-34.0 [facility] Comment on above: Performed By: #### 2 [id number] #### [facility] [address] [place] [address] MCHC (RBC) [Mass/Vol] 33.5 g/dL Normal 31.4-36.0 [facility] Comment on above: Performed By: #### 2 [id number] #### [facility] [address] [place] [address] MCV (RBC) [Entitic vol] 97.1 fL Normal 80.0-100.0 [facility] Comment on above: Performed By: #### 2 [id number] #### [facility] [address] [place] [address] Monocytes (Bld) [#/Vol] 0.5 E9/L Normal 0.2-1.0 [facility] Comment on above: Performed By: #### 2 [id number] #### [facility] [address] [place] [address] Neutrophils (Bld) [#/Vol] 4.0 E9/L Normal 2.0-7.5 [facility] Comment on above: Performed By: #### 2 [id number] #### [facility] [address] [place] [address] Neutrophils/100 WBC (Bld) 62.7 % Normal 36.0-75.0 [facility] Comment on above: Performed By: #### 2 [id number] #### [facility] [address] [place] [address] Platelet mean volume (Bld) [Entitic vol] 9.6 fL Normal 6.4-10.8 [facility] Comment on above: Performed By: #### 2 [id number] #### [facility] [address] [place] [address] Platelets (Bld) [#/Vol] 242.0 E9/L Normal 150.0-500.0 [facility] Comment on above: Performed By: #### 2 [id number] #### [facility] [address] [place] [address] RBC (Bld) [#/Vol] 4.3 E12/L Normal 4.3-5.9 [facility] Comment on above: Performed By: #### 2 [id number] #### [facility] [address] [place] [address] WBC corrected for nucl RBC Auto (Bld) [#/Vol] 6.4 E9/L Normal 4.0-11.0 [facility] Comment on above: Performed By: #### 2 [id number] #### [facility] [address] [place] [address] CHEMISTRYOrdered By: SYSTEM SYSTEM on 01-27-2024 Albumin [Mass/Vol] 4.3 g/dL Normal 3.3 - 5.0 gm/dL R emisol Chem Albumin/Globulin [Mass ratio] 1.7 {ratio} Normal 1.1 - 2.2 [facility] ALP [Catalytic activity/Vol] 55 [iU]/d Normal 21 - 98 Int._Unit/L [facility] ALT No additional P-5'-P [Catalytic activity/Vol] 32 [iU]/d Normal 6 - 46 Int._Unit/L [facility] Anion gap [Moles/Vol] 11 mmol/L Normal 6 - 16 mEq/L [facility] AST [Catalytic activity/Vol] 27 [iU]/d Normal 5 - 43 Int._Unit/L [facility] Bilirubin [Mass/Vol] 1.2 mg/dL High 0.0 - 1.1 mg/dL [facility] Calcium [Mass/Vol] 9.1 mg/dL Normal 8.9 - 11. 1 mg/dL [facility] Chloride [Moles/Vol] 102 mmol/L Normal 101 - 111 mmol/L [facility] Cholesterol [Mass/Vol] 203 mg/dL High 120 - 200 mg/dL [facility] Cholesterol in HDL [Mass/Vol] 79 mg/dL Invalid Interpretation Code Rem[facility] Comment on above: Result Comment: '>= 60 LOW RISK' '<= 40 HIGH RISK' Cholesterol in LDL [Mass/Vol] 115 mg/dL Normal <=129mg/dL [facility] Cholesterol in VLDL [Mass/Vol] 21 mg/dL Normal 7 - 40 mg/dL [facility] CO2 [Moles/Vol] 28 mmol/L Normal 21 - 31 mmol/L Remis ol Chem Creatinine [Mass/Vol] 0.8 mg/dL Normal 0.5 - 1.3 mg/dL [facility] eGFR 99 mL/min/1.73 m2 Normal >=59mL/min /1.73 m2 [facility] Globulin (S) [Mass/Vol] 2.6 g/dL Normal 1.4 - 4.0 gm/dL [facility] Glucose [Mass/Vol] 97 mg/dL Normal 55 - 199 mg/dL Re misol Chem Potassium [Moles/Vol] 4.2 mmol/L Normal 3.5 - 5.3 mmol/L [facility] Protein [Mass/Vol] 6.9 g/dL Normal 6.0 - 7.8 gm/dL R emisol Chem Sodium [Moles/Vol] 137 mmol/L Normal 135 - 145 mmol/L [facility] Triglyceride [Mass/Vol] 103 mg/dL Normal <=149mg/dL [facility] Urea nitrogen [Mass/Vol] 19 mg/dL Normal 5 - 21 mg/dL [facility] Urea nitrogen/Creatinine [Mass ratio] 24 mg/mg High 10 - 20 Remisol Chem CMPon 01-27-2024 Albumin [Mass/Vol] 4.3 g/dL Normal 3.3-5.0 [facility] Comment on above: Performed By: #### 2 [id number] #### [facility] [address] [place] [address] Albumin/Globulin (S) [Mass conc ratio] 1.7 Normal 1.1-2.2 [facility] Comment on above: Performed By: #### 2 [id number] #### [facility] [address] [place] [address] ALP [Catalytic activity/Vol] 55 Int._Unit/L Normal 21-98 [facility] Comment on above: Performed By: #### 2 [id number] #### [facility] [address] [place] [address] ALT No additional P-5'-P [Catalytic activity/Vol] 32 Int._Unit/L Normal 6-46 [facility] Comment on above: Performed By: #### 2 [id number] #### [facility] [address] [place] [address] Anion gap [Moles/Vol] 11 mmol/L Normal 6-16 [facility] Comment on above: Performed By: #### 2 [id number] #### [facility] [address] [place] [address] AST [Catalytic activity/Vol] 27 Int._Unit/L Normal 5-43 [facility] Comment on above: Performed By: #### 2 [id number] #### [facility] [address] [place] [address] Bilirubin [Mass/Vol] 1.2 mg/dL High 0.0-1.1 [facility] Comment on above: Performed By: #### 2 [id number] #### [facility] [address] [place] [address] Calcium [Mass/Vol] 9.1 mg/dL Normal 8.9-11.1 [facility] Comment on above: Performed By: #### 2 [id number] #### [facility] [address] [place] [address] Chloride [Moles/Vol] 102 mmol/L Normal 101-111 [facility] Comment on above: Performed By: #### 2 [id number] #### [facility] [address] [place] [address] CO2 [Moles/Vol] 28 mmol/L Normal 21-31 [facility] Comment on above: Performed By: #### 2 [id number] #### [facility] [address] [place] [address] Creatinine [Mass/Vol] 0.8 mg/dL Normal 0.5-1.3 [facility] Comment on above: Performed By: #### 2 [id number] #### [facility] [address] [place] [address] Globulin (S) [Mass/Vol] 2.6 g/dL Normal 1.4-4.0 [facility] Comment on above: Performed By: #### 2 [id number] #### [facility] [address] [place] [address] Glucose [Mass/Vol] 97 mg/dL Normal 55-199 [facility] Comment on above: Performed By: #### 2 [id number] #### [facility] [address] [place] [address] Potassium [Moles/Vol] 4.2 mmol/L Normal 3.5-5.3 [facility] Comment on above: Performed By: #### 2 [id number] #### [facility] [address] [place] [address] Protein [Mass/Vol] 6.9 g/dL Normal 6.0-7.8 [facility] Comment on above: Performed By: #### 2 [id number] #### [facility] [address] [place] [address] Sodium [Moles/Vol] 137 mmol/L Normal 135-145 [facility] Comment on above: Performed By: #### 2 [id number] #### [facility] [address] [place] [address] Urea nitrogen [Mass/Vol] 19 mg/dL Normal 5-21 [facility] Comment on above: Performed By: #### 2 [id number] #### [facility] [address] [place] [address] Urea nitrogen/Creatinine [Mass ratio] 24 No Units High 10-20 [facility] Comment on above: Performed By: #### 2 [id number] #### [facility] [address] [place] [address] Family Medicine Office/Clini c Noteon 01-27-2024 Family Medicine Office/Clinic Note Family Medicine Office/Clinic Note HPI Staff Nghia is a 63 year old male presenting for 6 month follow up arrhythmia, htn, sleep disorder Patient is here for follow up on hypertension. How often are you checking your blood pressure? Doesnt check BP at home What are your average readings? N/A, Not checking at home Yearly BMP: 10/19/22 questions/concerns: thinking he may needs labs Brother diagnosed with osteoporosis, he ? hereditary and should he be checked for that History of Present Illness - See Staff HPI. Review of Systems PHQ Score Initial Depression Screen Score: 0 SCORE Physical Exam Vitals & Measurements T: 36.3 ?C(Temporal Artery) HR: 72(Peripheral) RR: 16 BP: 112/76 SpO2: 96% HT: 75 in HT: 190 cm WT: 110.0 kg WT: 242 lb BMI: 30.47 General: alert, no acute distress ENMT: oral mucosa moist, Cardiovascular: regular rate and rhythm, normal peripheral perfusion Respiratory: Lungs CTA, respirations non labored Extremities: no deformity, no trauma Neurological: oriented x 4, LOC appropriate for age, CN II-XII intact, motor strength equal & normal bilaterally, speech normal Abdomen: Soft, Nontender, Non-distended, + BS Assessment/Plan 1. Arrhythmia (I49.9: Cardiac arrhythmia, unspecified) NO arrythmia today. - NSR - Will monitor Ordered: CBC w/ Auto Diff Comprehensive Metabolic Panel Lab Specimen Collect [id number] Lipid Panel 2. Hypertension (I10: Essential (primary) hypertension) - BP is at goal. - NO issues. - Will do labs Ordered: CBC w/ Auto Diff Comprehensive Metabolic Panel Lab Specimen Collect [id number] Lipid Panel 3. BMI 36.0-36.9,adult (Z68.36: Body mass index [BMI] 36.0-36.9, adult) - BMI education added Ordered: CBC w/ Auto Diff Comprehensive Metabolic Panel Lab Specimen Collect [id number] Lipid Panel 4. Class 1 obesity due to excess calories in adult (E66.09: Other obesity due to excess calories) - Diet and exercise advised Ordered: CBC w/ Auto Diff Comprehensive Metabolic Panel Lab Specimen Collect [id number] Lipid Panel 5. Former smoker (Z87.891: Personal history of nicotine dependence) - Please stop smoking Ordered: CBC w/ Auto Diff Comprehensive Metabolic Panel Lipid Panel 6. Hypercholesteremia (E78.00: Pure hypercholesterolemia, unspecified) - Will recheck labs Ordered: CBC w/ Auto Diff Comprehensive Metabolic Panel Lipid Panel 7. SOB (shortness of breath) (R06.02: Shortness of breath) - Believes to be 2/2 anxiety. - Stress test was WNL. Ordered: CBC w/ Auto Diff Comprehensive Metabolic Panel Lipid Panel Will do an Osteoporosis screen at 65. Pt to remind us at that time. Follow-up No qualifying data available Patient Education BMI for Adults Problem List/Past Medical History Ongoing Alcohol abuse Arrhythmia Arthritis BPH with urinary obstruction Bursitis, prepatellar, right Colon polyps Former smoker Hearing loss Hypercholesteremia Hypertension Incomplete bladder emptying Jock itch Localized osteoarthritis of knees, bilateral Nocturia OAB (overactive bladder) Prostate cancer screening Sleep disorder SOB (shortness of breath) Historical ED (erectile dysfunction) Urge incontinence Procedure/Surgical History Arthroscopy of shoulder, Colonoscopy, Partial ostectomy of metatarsal bone, Vasectomy. Medications betamethasone-clotrima zole Top 0.05%-1% Crm 15 gram, 1 elba, Topical, BID, Self Directed hydrochlorothiazide-ir besartan 12.5 mg-150 mg Tab, See Instructions, 1 refills Multi Vitamin+ Voltaren Gel 1% Gel, See Instructions Allergies No Known Medication Allergies Social History Tobacco Former smoker, quit more than 30 days ago Tobacco Use:. Never Smokeless Tobacco Use:., 01/27/2024 Family History Alcoholism: Father. Arthritis: Mother. Cancer: Father. Primary malignant neoplasm of lung: Mother. Immunizations Vaccine Date Status Comments influenza virus vaccine, inactivated 02/22/2023 Recorded SARS-CoV-2 (COVID-19) [id number].[id number] 03/17/2022 Recorded influenza virus vaccine, inactivated 04/29/2021 Recorded influenza virus vaccine, inactivated 04/22/2021 Recorded SARS-CoV-2 (COVID-19) mRNA BNT-162b2 vax 04/16/2021 Recorded SARS-CoV-2 (COVID-19) mRNA BNT-162b2 vax 2020 Recorded 2022-07-29: TPV60 SARS-CoV-2 (COVID-19) Ad26 vaccine 08/18/2020 Recorded SARS-CoV-2 (COVID-19) mRNA BNT-162b2 vax 07/31/2020 Recorded 2022-07-29: TPV50 SARS-CoV-2 (COVID-19) Ad26 vaccine 07/17/2020 Recorded influenza virus vaccine, inactivated 04/06/2018 Recorded influenza virus vaccine, inactivated 04/18/2017 Recorded Normal [facility] Comment on above: Result Comment: Elec tronically Signed By: Jairo JEROME, Jemal Mckeon.br\Date and Time Signed: 01/27/24 08:37 EDT HEMATOLOGYOrdered By: SYSTEM SYSTEM on 01-27-2024 Basophils/100 WBC (Bld) 1.4 % Normal 0.0 - 2.0 % Remisol Heme Basophils/Leukocyte s Auto (Bld) [Pure # fraction] 0.1 E9/L Normal 0.0 - 0.2 E9/L Remisol Heme Eosinophils (Bld) [#/Vol] 0.4 E9/L Normal 0.0 - 0.5 E9/L Remisol Heme Eosinophils/100 WBC (Bld) 6.8 % Normal 0.0 - 8.0 % Remisol Heme Erythrocyte distribution width (RBC) [Ratio] 13.6 % Normal 10.9 - 14.2 % Remisol Heme Hematocrit (Bld) [Volume fraction] 41.8 % Normal 37.7 - 49.0 % Remisol Heme Hemoglobin (Bld) [Mass/Vol] 14.0 g/dL Normal 13.5 - 17.5 gm/dL Remisol Heme Lymphocytes (Bld) [#/Vol] 1.3 E9/L Normal 1.0 - 4.0 E9/L Remisol Heme Lymphocytes/100 WBC (Bld) 20.5 % Normal 14.0 - 50.0 % Remisol Heme MCH (RBC) [Entitic mass] 32.5 pg Normal 27.0 - 34.0 pg Remisol Heme MCHC (RBC) [Mass/Vol] 33.5 g/dL Normal 31.4 - 36.0 gm/dL Remisol Heme MCV (RBC) [Entitic vol] 97.1 fL Normal 80.0 - 100.0 fL Remisol Heme Monocytes (Bld) [#/Vol] 0.5 E9/L Normal 0.2 - 1.0 E9/L Remisol Heme Monocytes/100 WBC (Bld) 8.6 % Normal 4.0 - 14.0 % Remisol Heme Neutrophils (Bld) [#/Vol] 4.0 E9/L Normal 2.0 - 7.5 E9/L Remisol Heme Neutrophils/100 WBC (Bld) 62.7 % Normal 36.0 - 75.0 % Remisol Heme Platelet mean volume (Bld) [Entitic vol] 9.6 fL Normal 6.4 - 10.8 fL Remisol Heme Platelets (Bld) [#/Vol] 242.0 E9/L Normal 150.0 - 500.0 E9/L Remisol Heme RBC (Bld) [#/Vol] 4.3 E12/L Normal 4.3 - 5.9 E12/L Re misol Heme WBC corrected for nucl RBC Auto (Bld) [#/Vol] 6.4 E9/L Normal 4.0 - 11.0 E9/L Remisol Heme Lipid Panelon 01-27-2024 Cholesterol [Mass/Vol] 203 mg/dL High 120-200 [facility] Comment on above: Performed By: #### 2 [id number] #### [facility] [address] [place] [address] Cholesterol in HDL [Mass/Vol] 79 mg/dL Invalid Interpretation Code [facility] Comment on above: Result Comment: '>= 60 LOW RISK' '<= 40 HIGH RISK' Performed By: #### 2 [id number] #### [facility] [address] [place] [address] Cholesterol in LDL [Mass/Vol] 115 mg/dL Normal <=129 [facility] Comment on above: Performed By: #### 2 [id number] #### [facility] [address] [place] [address] Cholesterol in VLDL [Mass/Vol] 21 mg/dL Normal 7-40 [facility] Comment on above: Performed By: #### 2 [id number] #### [facility] [address] [place] [address] Triglyceride [Mass/Vol] 103 mg/dL Normal <=149 [facility] Comment on above: Performed By: #### 2 [id number] #### [facility] [address] [place] [address] eGFRon 01-27-2024 eGFR 99 mL/min/1.73 m2 Normal >=59 [facility] Comment on above: Order Comment: Order added by Discern Expert. Performed By: #### 1 [id number] #### [facility] [address] [place] [address] Ambulatory Visit Summaryon 0 12-16-2023 Ambulatory Visit Summary Ambulatory Visit Summary NGIHA MEDINA :1960 Visit Date:12/16/2023 Ambulatory Visit Instructions Your Diagnosis Jock itch BMI 31.0-31.9,adult Class 1 obesity due to excess calories in adult Former smoker Your Care Team Attending Physician - Jemal Gill MD Primary Care Physician - Jemal Gill MD This Is Your Medications List diclofenac topical (Voltaren Gel 1% Gel) hydrochlorothiazide-ir besartan (hydrochlorothiazide-i rbesartan 12.5 mg-150 mg Tab) mirabegron (Myrbetriq 25 mg oral tablet, extended release) multivitamin (Multi Vitamin+) Procedures Performed Arthroscopy of shoulder, Colonoscopy, Partial ostectomy of metatarsal bone, Vasectomy. Discharge Vitals Temperature (Temporal Artery) 36.4 ?C Heart Rate (Peripheral) 72 Respiratory Rate 16 Blood Pressure 136/78 Height 190 cm Height 75 in Weight 112.5 kg Weight 247.5 lb BMI 31.16 What to do next Scheduled Follow-Up Appointments 2023 7:00 AM EDT With: Jairo JEROME, Jemal [facility] Where: [facility] [address] [address]- Wednesday 9:45 AM EDT With: Collin JEROME, Mercedez Quiroz Where: [facility] [address] [place] [address]- Medications What How Much When Instructions Unchanged diclofenac topical (Voltaren Gel 1% Gel) See instructions apply small amount to knee daily Unchanged hydrochlorothiazide-ir besartan (hydrochlorothiazide-i rbesartan 12.5 mg-150 mg Tab) See instructions TAKE 2 TABLETS BY MOUTH EVERY DAY Unchanged mirabegron (Myrbetriq 25 mg oral tablet, extended release) 1 Tablets By Mouth Every day Duration: 30 Days Unchanged multivitamin (Multi Vitamin+) Allergies No Known Medication Allergies Problems Ongoing - Any problem that you are currently receiving treatment for. Alcohol abuse Arrhythmia Arthritis BPH with urinary obstruction Bursitis, prepatellar, right Colon polyps Former smoker Hearing loss Hypercholesteremia Hypertension Incomplete bladder emptying Jock itch Localized osteoarthritis of knees, bilateral Nocturia OAB (overactive bladder) Prostate cancer screening Sleep disorder SOB (shortness of breath) Historical - Any problem that you are no longer receiving treatment for. ED (erectile dysfunction) Urge incontinence Patient Survey You may receive a survey via text or e-mail asking about your office visit. Please share your experience with us by completing your survey. We appreciate your feedback and thank you for choosing us for your care. Normal [facility] Family Medicine Office/Clini c Noteon 12-16-2023 Family Medicine Office/Clinic Note Family Medicine Office/Clinic Note HPI Staff Nghia is a 63 year old male presenting for acute visit Acute: rash Duration: 3-4 weeks New or Recurrent: recurrent but many years ago Location: fold of groin Description: reddish type rash, no bumps, it's somewhat weeping Rash symptoms: feels it's fungal, jock itch, itches Used antifungal jock itch spray and cream but it didn't clear it up History of Present Illness Patient presents for jock itch. Patient has had this 5 years ago. Patient said it was extremely hard to get rid of as the patient is constantly sweating in this hot sun. Review of Systems PHQ Score Initial Depression Screen Score: 0 SCORE Physical Exam Vitals & Measurements T: 36.4 ?C(Temporal Artery) HR: 72(Peripheral) RR: 16 BP: 136/78 SpO2: 97% HT: 75 in HT: 190 cm WT: 112.5 kg WT: 247.5 lb BMI: 31.16 Red erythema in both groin creases with satellite lesions. White edge. Assessment/Plan 1. Jock itch (B35.6: Tinea cruris) - Will use nystatin powder - Will use topical antifungal and steroid as the area is swollen - Advised the patient to call me on wednesday to let me know how it is Ordered: betamethasone-clotrima zole topical, 1 elba, Topical, BID, 45 gram, Refill(s) 0, [id number], 190, cm, 12/16/23 7:03:00 EDT, Height/Length Dosing, 112.5, kg, 12/16/23 7:03:00 EDT, Weight Dosing 2. BMI 31.0-31.9,adult (Z68.31: Body mass index [BMI] 31.0-31.9, adult) BMI education added Ordered: betamethasone-clotrima zole topical, 1 elba, Topical, BID, 45 gram, Refill(s) 0, [id number], 190, cm, 12/16/23 7:03:00 EDT, Height/Length Dosing, 112.5, kg, 12/16/23 7:03:00 EDT, Weight Dosing 3. Class 1 obesity due to excess calories in adult (E66.09: Other obesity due to excess calories) Diet and exercise advised Ordered: betamethasone-clotrima zole topical, 1 elba, Topical, BID, 45 gram, Refill(s) 0, [id number], 190, cm, 12/16/23 7:03:00 EDT, Height/Length Dosing, 112.5, kg, 12/16/23 7:03:00 EDT, Weight Dosing 4. Former smoker (Z87.891: Personal history of nicotine dependence) Please continue not to smoke Ordered: betamethasone-clotrima zole topical, 1 elba, Topical, BID, 45 gram, Refill(s) 0, [id number], 190, cm, 12/16/23 7:03:00 EDT, Height/Length Dosing, 112.5, kg, 12/16/23 7:03:00 EDT, Weight Dosing Orders: nystatin, See Instructions, Please apply to affected area TID. Please supply a 90 days supply., # 1 EA, Refills(s) 0, Pharmacy: [id number], 190, cm, 12/16/23 7:03:00 EDT, Height/Length Dosing, 112.5, kg, 12/16/23 7:03:00 EDT, Weight Dosing Follow-up No qualifying data available Patient Education BMI for Adults Problem List/Past Medical History Ongoing Alcohol abuse Arrhythmia Arthritis BPH with urinary obstruction Bursitis, prepatellar, right Colon polyps Former smoker Hearing loss Hypercholesteremia Hypertension Incomplete bladder emptying Jock itch Localized osteoarthritis of knees, bilateral Nocturia OAB (overactive bladder) Prostate cancer screening Sleep disorder SOB (shortness of breath) Historical ED (erectile dysfunction) Urge incontinence Procedure/Surgical History Arthroscopy of shoulder, Colonoscopy, Partial ostectomy of metatarsal bone, Vasectomy. Medications betamethasone-clotrima zole Top 0.05%-1% Crm 15 gram, 1 elba, Topical, BID hydrochlorothiazide-ir besartan 12.5 mg-150 mg Tab, See Instructions, 1 refills Multi Vitamin+ Myrbetriq 25 mg oral tablet, extended release, 25 mg= 1 tab(s), Oral, Daily, 11 refills nystatin 500,000,000 units compounding powder, See Instructions Voltaren Gel 1% Gel, See Instructions Allergies No Known Medication Allergies Social History Tobacco Former smoker, quit more than 30 days ago Tobacco Use:. Never Smokeless Tobacco Use:., 12/16/2023 Family History Alcoholism: Father. Arthritis: Mother. Cancer: Father. Primary malignant neoplasm of lung: Mother. Immunizations Vaccine Date Status Comments influenza virus vaccine, inactivated 02/22/2023 Recorded SARS-CoV-2 (COVID-19) [id number] 03/17/2022 Recorded influenza virus vaccine, inactivated 04/29/2021 Recorded influenza virus vaccine, inactivated 04/22/2021 Recorded SARS-CoV-2 (COVID-19) mRNA BNT-162b2 vax 04/16/2021 Recorded SARS-CoV-2 (COVID-19) mRNA BNT-162b2 vax 2020 Recorded 2022-07-29: TPV60 SARS-CoV-2 (COVID-19) Ad26 vaccine 08/18/2020 Recorded SARS-CoV-2 (COVID-19) mRNA BNT-162b2 vax 07/31/2020 Recorded 2022-07-29: TPV50 SARS-CoV-2 (COVID-19) Ad26 vaccine 07/17/2020 Recorded influenza virus vaccine, inactivated 04/06/2018 Recorded influenza virus vaccine, inactivated 04/18/2017 Recorded [facility] Comment on above: Result Comment: Elec tronically Signed By: Jairo JEROME, Jemal [place]\.br\Date and Time Signed: 12/16/23 07:47 EDT Consultation Noteon 08-17-19 Consultation Note [id number] 0TIFF [facility] Consultation Note [id number] 0TIFF [facility] Consultation Noteon 08-11-19 Consultation Note [id number] 0TIFF [facility] Consultation Noteon 07-23-19 Consultation Note [id number] 0TIFF [facility] Ambulatory Visit Summaryon 0 07-22-2023 Ambulatory Visit Summary NGHIA MEDINA :1960 Visit Date:07/22/2023 Ambulatory Visit Instructions Your Diagnosis Arthritis Hypertension Sleep disorder Alcohol abuse Arrhythmia Your Care Team Attending Physician - Jemal Gill MD Primary Care Physician - Jemal Gill MD This Is Your Medications List diclofenac topical (Voltaren Gel 1% Gel) hydrochlorothiazide-ir besartan (hydrochlorothiazide-i rbesartan 12.5 mg-150 mg Tab) mirabegron (Myrbetriq 25 mg oral tablet, extended release) multivitamin (Multi Vitamin+) Procedures Performed Arthroscopy of shoulder, Colonoscopy, Partial ostectomy of metatarsal bone, Vasectomy. Discharge Vitals Temperature (Temporal Artery) 36.4 ?C Heart Rate (Peripheral) 76 Respiratory Rate 16 Blood Pressure 130/78 Height 190 cm Height 75 in Weight 111.4 kg Weight 245.08 lb BMI 30.86 What to do next Scheduled Follow-Up Appointments Wednesday 9:45 AM EDT With: Mercedez Polanco MD Where: [facility] Ambulatory Visit Summary NGHIA MEDINA :1960 Visit Date:07/22/2023 Ambulatory Visit Instructions Your Diagnosis Arthritis Hypertension Sleep disorder Alcohol abuse Arrhythmia Your Care Team Attending Physician - Jemal Gill MD Primary Care Physician - Jemal Gill MD This Is Your Medications List diclofenac topical (Voltaren Gel 1% Gel) hydrochlorothiazide-ir besartan (hydrochlorothiazide-i rbesartan 12.5 mg-150 mg Tab) mirabegron (Myrbetriq 25 mg oral tablet, extended release) multivitamin (Multi Vitamin+) Procedures Performed Arthroscopy of shoulder, Colonoscopy, Partial ostectomy of metatarsal bone, Vasectomy. Discharge Vitals Temperature (Temporal Artery) 36.4 ?C Heart Rate (Peripheral) 76 Respiratory Rate 16 Blood Pressure 130/78 Height 190 cm Height 75 in Weight 111.4 kg Weight 245.08 lb BMI 30.86 What to do next Scheduled Follow-Up Appointments Wednesday 9:45 AM EDT With: Mercedez Polanco MD Where: [facility] Family Medicine Office/Clini c Noteon 07-22-2023 Family Medicine Office/Clinic Note HPI Staff Nghia is a 62 year old male presenting for 3 month follow up sleep apnea Sleep study done 05/03/23 Doesn't think he'll go the route of a c pap. He doesn't think it showed obstructive sleep apnea Questions/concerns: saw ortho yesterday discussed right knee replacement had some xrays done close to time about the replacement. Plan is to wear brace try pain management for injections flu: UTD 02/22/23 History of Present Illness Pt presents for follow up. - Needing a knee replacement. - Bps are WNL. NO issues with meds. - Having some palpitations every few months. Unsure when they come. Review of Systems PHQ Score Initial Depression Screen Score: 0 SCORE Physical Exam Vitals & Measurements T: 36.4 ?C(Temporal Artery) HR: 76(Peripheral) RR: 16 BP: 130/78 SpO2: 96% HT: 75 in HT: 190 cm WT: 111.4 kg WT: 245.08 lb BMI: 30.86 General: alert, no acute distress ENMT: oral mucosa moist, Cardiovascular: regular rate and rhythm, normal peripheral perfusion Respiratory: Lungs CTA, respirations non labored Extremities: no deformity, no trauma Neurological: oriented x 4, LOC appropriate for age, CN II-XII intact, motor strength equal & normal bilaterally, speech normal Abdomen: Soft, Nontender, Non-distended, + BS Assessment/Plan 1. Arthritis (M19.90: Unspecified osteoarthritis, unspecified site) - Follow up with Dr. Wang - Discussed options 2. Hypertension (I10: Essential (primary) hypertension) - Well controlled - No issues at this time. 3. Sleep disorder (G47.9: Sleep disorder, unspecified) - Mild LAUREEN - Pt would like to work on diet to see if this resolves with weight loss 4. Alcohol abuse (F10.10: Alcohol abuse, uncomplicated) - Discussed how drinking on the weekends can cause arrythmias on mondays. - Pt will monitor 5. Arrhythmia (I49.9: Cardiac arrhythmia, unspecified) - As above. - Not enough episodes to get a holter. - if patient is having symptoms, please come in to get an EKG. Orders: hydrochlorothiazide-ir besartan, See Instructions, 180 tab(s), Refill(s) 1, TAKE 2 TABLETS BY MOUTH EVERY DAY, [id number], 190, cm, 07/22/23 7:03:00 EST, Height/Length Dosing, 111.4, kg, 07/22/23 7:03:00 EST, Weight Dosing Follow-up No qualifying data available Patient Education Hypertension, Adult Problem List/Past Medical History Ongoing Alcohol abuse Arrhythmia Arthritis BPH with urinary obstruction Bursitis, prepatellar, right Colon polyps Former smoker Hearing loss Hypercholesteremia Hypertension Incomplete bladder emptying Localized osteoarthritis of knees, bilateral Nocturia OAB (overactive bladder) Prostate cancer screening Sleep disorder SOB (shortness of breath) Historical ED (erectile dysfunction) Urge incontinence Procedure/Surgical History Arthroscopy of shoulder, Colonoscopy, Partial ostectomy of metatarsal bone, Vasectomy. Medications hydrochlorothiazide-ir besartan 12.5 mg-150 mg Tab, See Instructions, 1 refills Multi Vitamin+ Myrbetriq 25 mg oral tablet, extended release, 25 mg= 1 tab(s), Oral, Daily, 11 refills Voltaren Gel 1% Gel, See Instructions Allergies No Known Medication Allergies Social History Tobacco Former smoker, quit more than 30 days ago Tobacco Use:. Never Smokeless Tobacco Use:., 07/22/2023 Family History Alcoholism: Father. Arthritis: Mother. Cancer: Father. Primary malignant neoplasm of lung: Mother. Immunizations Vaccine Date Status Comments influenza virus vaccine, inactivated 02/22/2023 Recorded SARS-CoV-2 (COVID-19) [id number] 03/17/2022 Recorded influenza virus vaccine, inactivated 04/29/2021 Recorded influenza virus vaccine, inactivated 04/22/2021 Recorded SARS-CoV-2 (COVID-19) mRNA BNT-162b2 vax 04/16/2021 Recorded SARS-CoV-2 (COVID-19) mRNA BNT-162b2 vax 2020 Recorded 2022-07-29: TPV60 SARS-CoV-2 (COVID-19) Ad26 vaccine 08/18/2020 Recorded SARS-CoV-2 (COVID-19) mRNA BNT-162b2 vax 07/31/2020 Recorded 2022-07-29: TPV50 SARS-CoV-2 (COVID-19) Ad26 vaccine 07/17/2020 Recorded influenza virus vaccine, inactivated 04/06/2018 Recorded influenza virus vaccine, inactivated 04/18/2017 Recorded Normal [facility] Comment on above: Result Comment: Elec tronically Signed By: Jairo JEROME, Jemal Pierrebr\Date and Time Signed: 07/22/23 07:18 EST Patient Educationon 07-22-19 Patient Education Cardiovascular Hypertension, Adult High blood pressure (hypertension) is when the force of blood pumping through the arteries is too strong. The arteries are the blood vessels that carry blood from the heart throughout the body. Hypertension forces the heart to work harder to pump blood and may cause arteries to become narrow or stiff. Untreated or uncontrolled hypertension can lead to a heart attack, heart failure, a stroke, kidney disease, and other problems. A blood pressure reading consists of a higher number over a lower number. Ideally, your blood pressure should be below 120/80. The first ( top ) number is called the systolic pressure. It is a measure of the pressure in your arteries as your heart beats. The second ( bottom ) number is called the diastolic pressure. It is a measure of the pressure in your arteries as the heart relaxes. What are the causes? The exact cause of this condition is not known. There are some conditions that result in high blood pressure. What increases the risk? Certain factors may make you more likely to develop high blood pressure. Some of these risk factors are under your control, including: ? Smoking. ? Not getting enough exercise or physical activity. ? Being overweight. ? Having too much fat, sugar, calories, or salt (sodium) in your diet. ? Drinking too much alcohol. Other risk factors include: ? Having a personal history of heart disease, diabetes, high cholesterol, or kidney disease. ? Stress. ? Having a family history of high blood pressure and high cholesterol. ? Having obstructive sleep apnea. ? Age. The risk increases with age. What are the signs or symptoms? High blood pressure may not cause symptoms. Very high blood pressure (hypertensive crisis) may cause: ? Headache. ? Fast or irregular heartbeats (palpitations). ? Shortness of breath. ? Nosebleed. ? Nausea and vomiting. ? Vision changes. ? Severe chest pain, dizziness, and seizures. How is this diagnosed? This condition is diagnosed by measuring your blood pressure while you are seated, with your arm resting on a flat surface, your legs uncrossed, and your feet flat on the floor. The cuff of the blood pressure monitor will be placed directly against the skin of your upper arm at the level of your heart. Blood pressure should be measured at least twice using the same arm. Certain conditions can cause a difference in blood pressure between your right and left arms. If you have a high blood pressure reading during one visit or you have normal blood pressure with other risk factors, you may be asked to: ? Return on a different day to have your blood pressure checked again. ? Monitor your blood pressure at home for 1 week or longer. If you are diagnosed with hypertension, you may have other blood or imaging tests to help your health care provider understand your overall risk for other conditions. How is this treated? This condition is treated by making healthy lifestyle changes, such as eating healthy foods, exercising more, and reducing your alcohol intake. You may be referred for counseling on a healthy diet and physical activity. Your health care provider may prescribe medicine if lifestyle changes are not enough to get your blood pressure under control and if: ? Your systolic blood pressure is above 130. ? Your diastolic blood pressure is above 80. Your personal target blood pressure may vary depending on your medical conditions, your age, and other factors. Follow these instructions at home: Eating and drinking ? Eat a diet that is high in fiber and potassium, and low in sodium, added sugar, and fat. An example of this eating plan is called the DASH diet. DASH stands for Dietary Approaches to Stop Hypertension. To eat this way: ? Eat plenty of fresh fruits and vegetables. Try to fill one half of your plate at each meal with fruits and vegetables. ? Eat whole grains, such as whole-wheat pasta, brown rice, or whole-grain bread. Fill about one fourth of your plate with whole grains. ? Eat or drink low-fat dairy products, such as skim milk or low-fat yogurt. ? Avoid fatty cuts of meat, processed or cured meats, and poultry with skin. Fill about one fourth of your plate with lean proteins, such as fish, chicken without skin, beans, eggs, or tofu. ? Avoid pre-made and processed foods. These tend to be higher in sodium, added sugar, and fat. ? Reduce your daily sodium intake. Many people with hypertension should eat less than 1,500 mg of sodium a day. ? Do not drink alcohol if: ? Your health care provider tells you not to drink. ? You are , may be , or are planning to become . ? If you drink alcohol: ? Limit how much you have to: ? 0?1 drink a day for women. ? 0?2 drinks a day for men. ? Know how much alcohol is in your drink. In the [place] one drink equals one 12 oz bottle of beer (355 mL), one 5 oz glass of wine (148 mL), or one 1? oz glass (more content not included)... Normal [facility] Consultation Noteon 06-04-19 Consultation Note [id number]#1.0 0TIFF Normal [facility] Sleep Studieson 05-12-2023 Sleep Studies [id number]#1. 00TIFF Normal [facility] Stress EKG Tracingson 2022 Stress EKG Tracings [id number]#1. 00TIFF Normal [facility] Stress EKG Tracings [id number]#1. 00TIFF Normal [facility] Comment on above: Other Comment: wrong date NM Myocardial Spect Rest/Str ess 1 Dayon 05-04-2023 NM Myocardial Spect Rest/Stress 1 Day Exam Date/Time: 04/30/2023 10:54 EST Reason for Exam: R06.02;Shortness of breath (SOB) Report PROCEDURE: Treadmill exercise stress test. INDICATIONS: Shortness of breath. PROCEDURE DETAILS: The patient was stressed according to the Moises protocol, exercised for 6 minutes 51 seconds achieving a heart rate of 141 beats per minute which was 89% maximal age-predicted heart rate and 7.80 METS. The patient's blood pressure response was hypertensive at 225/81. The patient did not have chest pain. EKG was sinus rhythm at baseline. With peak stress, there were no significant EKG changes. Recovery phase was normal with the exception of occasional premature ventricular contractions. Review of raw images demonstrated motion artifact and diaphragmatic attenuation due to body habitus. The patient received 9.5 mCi of Cardiolite for rest images and 29.5 mCi of Cardiolite for stress images. FINDINGS: Uptake of the tracer was homogeneous with no identifiable ischemia or infarction. The TID ratio was 1.06. The ejection fraction was 64%. End-diastolic volume was 110 mL, which is normal. CONCLUSIONS: Negative treadmill nuclear stress test. Overall low risk stress. Test is somewhat limited by significant diaphragmatic attenuation. If coronary artery disease is still clinically significantly suspected, considerate alternate imaging modalities such as stress echocardiogram. FINAL REPORT Signed (Electronic Signature): 05/04/2023 5:18 pm Signed by: Eric Kearns MD Transcribed by: sung Technologist: CORI Technical Comments Rest Dose (mCi Tc99m Cardiolite): 9.5 Stress Dose (mCi Tc99M Cardiolite): 29.5 Normal [facility] Consenton 05-03-2023 Consent [id number]#1. 00TIFF [facility] Consent for Treatmenton 04-16 Consent for Treatment [id number]#1.0 0TIFF [facility] Consent for Treatmenton 04-16 Consent for Treatment [id number]#1.0 0TIFF [facility] Physician Orderon 04-26-2023 Physician Order [id number]#1. 00TIFF [facility] Insurance Correspondenceon 1 06-22-2022 Insurance Correspondence [id number]#1.0 0TIFF [facility] Family Medicine Office/Clini c Noteon 04-19-2023 Family Medicine Office/Clinic Note HPI Staff Nghia os a 62 year old male presenting for one month follow up sleep disorder, alcohol abuse, shortness of breath OSWALDO order myocardial spect and sleep study Didn't get the stress test due to problems with their equipment is scheduled a couple weeks out Never got a call for the sleep study flu: UTD questions/concerns: hasn't had much shortness of breath. [place] and did okay History of Present Illness Nghia Medina is a 62-year-old male who presents today for a follow-up evaluation of alcohol abuse. The patient reports a reduction in alcohol consumption by approximately 50%. He acknowledges that he used to consume 3 to 4 drinks on many weeknights and is now monitoring his intake. The patient also reports an improvement in his breathing difficulties. He believes a few episodes may have been alcohol related. He mentions physical activity involving hill climbing 2 days prior. He acknowledges a decline in his physical condition compared to 10 years ago. He expresses a desire to increase his physical exercise but is hindered by arthritis pain in his leg. Review of Systems PHQ Score Initial Depression Screen Score: 0 SCORE Physical Exam Vitals & Measurements T: 36.8 ?C(Temporal Artery) HR: 74(Peripheral) RR: 16 BP: 132/80 SpO2: 96% HT: 75 in HT: 190 cm WT: 110.8 kg WT: 243.76 lb BMI: 30.69 General: alert, no acute distress Cardiovascular: regular rate and rhythm, normal peripheral perfusion Respiratory: Lungs CTA, respirations non labored Extremities: no deformity, no trauma Neurological: oriented x 4, LOC appropriate for age, CN II-XII intact, motor strength equal & normal bilaterally, speech normal Assessment/Plan 1. Alcohol abuse (F10.10: Alcohol abuse, uncomplicated) The patient is doing really well cutting down his alcohol intake. Encouraged the patient to continue with this. 2. Arrhythmia (I49.9: Cardiac arrhythmia, unspecified) The patient is doing well. No concerns today on listening. He will get a stress test in 2 weeks. 3. SOB (shortness of breath) (R06.02: Shortness of breath) The patient has improved significantly. He is unsure if this is due to alcohol versus his sleep apnea or questionable sleep apnea. We will see the patient back in 3 months after he gets his sleep study done. 4. Sleep disorder (G47.9: Sleep disorder, unspecified) I have ordered a sleep study again for the patient. This one we will try to do at home just in case he is not able to get the full sleep study at the facility. We will follow up again in 3 months. 5. BMI 30.0-30.9,adult (Z68.30: Body mass index [BMI] 30.0-30.9, adult) BMI education given. 6. Class 1 obesity due to excess calories in adult (E66.09: Other obesity due to excess calories) Diet and exercise advised. 7. Former smoker (Z87.891: Personal history of nicotine dependence) Encouraged the patient to continue not to smoke. ATTESTATION: Portions of this record may have been created with voice recognition artificial intelligence software, specifically [employer], [employer] and or [employer]. Substitutions may have occurred due to the inherent limitations of voice recognition and artificial intelligence software. Documentation services were performed after patient or guardian consented to allow [email or web address] to record this visit. [employer] clarity specialists and provider reviewed before signing. BEATA: Clau Pascal. Follow-up No qualifying data available Problem List/Past Medical History Ongoing Alcohol abuse Arrhythmia Arthritis BPH with urinary obstruction Bursitis, prepatellar, right Colon polyps Former smoker Hearing loss Hypercholesteremia Hypertension Incomplete bladder emptying Localized osteoarthritis of knees, bilateral Nocturia OAB (overactive bladder) Prostate cancer screening Sleep disorder SOB (shortness of breath) Historical ED (erectile dysfunction) Urge incontinence Procedure/Surgical History Arthroscopy of shoulder, Colonoscopy, Partial ostectomy of metatarsal bone, Vasectomy. Medications hydrochlorothiazide-ir besartan 12.5 mg-150 mg Tab, See Instructions Multi Vitamin+ Myrbetriq 25 mg oral tablet, extended release, 25 mg= 1 tab(s), Oral, Daily, 11 refills Voltaren Gel 1% Gel, See Instructions Allergies No Known Medication Allergies Social History Tobacco Former smoker, quit more than 30 days ago Tobacco Use:. Never Smokeless Tobacco Use:., 04/15/2023 Family History Alcoholism: Father. Arthritis: Mother. Cancer: Father. Primary malignant neoplasm of lung: Mother. Immunizations Vaccine Date Status Comments influenza virus vaccine, inactivated 02/22/2023 Recorded SARS-CoV-2 (COVID-19) [id number] 03/17/2022 Recorded influenza virus vaccine, inactivated 04/29/2021 Recorded influenza virus vaccine, inactivated 04/22/2021 Recorded SARS-CoV-2 (COVID-19) mRNA [id number] vax 04/16/2021 Recorded (more content not included)... Normal [facility] Comment on above: Result Comment: Elec tronically Signed By: Jemal Gill MD\.br\Date and Time Signed: 04/19/23 07:57 EST\.br\Electronically Co-Signed By: Clau Pascal\.br\Date and Time Co-Signed: 04/15/23 19:56 EST Ambulatory Visit Summaryon 06-15-2022 Ambulatory Visit Summary NGHIA MEDINA :1960 Visit Date:04/15/2023 Ambulatory Visit Instructions Your Diagnosis Alcohol abuse Arrhythmia SOB (shortness of breath) Sleep disorder BMI 30.0-30.9,adult Class 1 obesity due to excess calories in adult Former smoker Your Care Team Attending Physician - Jemal Gill MD Primary Care Physician - Jemal Gill MD This Is Your Medications List Contact prescribing physician if questions or concerns diclofenac topical (Voltaren Gel 1% Gel) hydrochlorothiazide-ir besartan (hydrochlorothiazide-i rbesartan 12.5 mg-150 mg Tab) mirabegron (Myrbetriq 25 mg oral tablet, extended release) multivitamin (Multi Vitamin+) Procedures Performed Arthroscopy of shoulder, Colonoscopy, Partial ostectomy of metatarsal bone, Vasectomy. Discharge Vitals Temperature (Temporal Artery) 36.8 ?C Heart Rate (Peripheral) 74 Respiratory Rate 16 Blood Pressure 132/80 Height 190 cm Height 75 in Weight 110.8 kg Weight 243.76 lb BMI 30.69 What to do next Scheduled Follow-Up Appointments Wednesday 5:00 PM EST With: Jemal Gill MD Where: [place] [id number] \.br\ Medications\.br \ What How Much When Instructions\.b r\ Unchanged diclofenac topical (Voltaren Gel 1% Gel) See instructions apply small amount to knee daily Contact prescribing physician if questions or concerns \.br\ Unchanged hydrochlorothia zide-irbesartan (hydrochlorothi azide-irbesarta n 12.5 mg-150 mg Tab) See instructions TAKE 2 TABLETS BY MOUTH EVERY DAY Contact prescribing physician if questions or concerns \.br\ Unchanged mirabegron (Myrbetriq 25 mg oral tablet, extended release) 1 Tablets By Mouth Every day Duration: 30 Days Contact prescribing physician if questions or concerns \.br\ Unchanged multivitamin (Multi Vitamin+) Contact prescribing physician if questions or concerns \.br\ Allergies\.br\ No Known Medication Allergies\.br\ Problems\.br\ Ongoing - Any problem that you are currently receiving treatment for.\.br\ Alcohol abuse\.br\ Arrhythmia\.br\ Arthritis\.br\ BPH with urinary obstruction\.br \ Bursitis, prepatellar, right\.br\ Colon polyps\.br\ Former smoker\.br\ Hearing loss\.br\ Hypercholestere deirdre\.br\ Hypertension\.b r\ Incomplete bladder emptying\.br\ Localized osteoarthritis of knees, bilateral\.br\ Nocturia\.br\ OAB (overactive bladder)\.br\ Prostate cancer screening\.br\ Sleep disorder\.br\ SOB (shortness of breath)\.br\ Historical - Any problem that you are no longer receiving treatment for.\.br\ ED (erectile dysfunction)\.b r\ Urge incontinence\.b r\ Patient Survey\.br\ You may receive a survey via text or e-mail asking about your office visit. Please share your experience with us by completing your survey. We appreciate your feedback and thank you for choosing us for your care.\.br\ \.br\ [facility] Family Medicine Office/Clini c Noteon 03-03-2023 Family Medicine Office/Clinic Note HPI Staff Nghia is a 62 year old male presenting for acute visit Acute: shortness of breath with activity going on for about a month says he's short of breath now and having some chest heaviness/tightness across the upper chest and across his shoulder blades feels tight Smart watch telling him having some a fib Waking at night and has to take an allergy pill to get back to sleep This morning after his shower was sweating terrible and the shortness of breath was bad flu: UTD History of Present Illness Nghia Medina is a 62-year-old male who presents today for an evaluation of atrial fibrillation. The patient reports that his Apple watch detected atrial fibrillation two weeks ago. Since 02/06/2023, he has experienced intermittent shortness of breath, with a severe episode occurring after showering this morning. He typically wakes up at 4:45 AM on weekdays and around 6:00-6:30 AM on weekends. He has had coughing spells, which he initially attributed to allergies, that often wake him up at 2:00 AM. His cough produces thick mucus, but the frequency has decreased since his medication was adjusted. He is currently taking Myrbetriq for bladder issues. 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 He experiences intermittent shortness of breath and snores heavily at night but has never been tested for sleep apnea. He admits to drinking alcohol excessively, with eight beers consumed the previous day. He has been attempting to reduce his usual intake of a six-pack per night and notes feeling better when he does so. He had undergone lab tests in the past. Review of Systems PHQ Score Initial Depression Screen Score: 0 Physical Exam Vitals & Measurements T: 36.8 ?C(Oral) HR: 86(Peripheral) RR: 18 BP: 118/66 SpO2: 97% HT: 75 in HT: 190 cm WT: 110.3 kg WT: 242.66 lb BMI: 30.55 General: alert, no acute distress Cardiovascular: regular rate and rhythm, normal peripheral perfusion Respiratory: Lungs CTA, respirations non labored Extremities: no deformity, no trauma Neurological: oriented x 4, LOC appropriate for age, CN II-XII intact, motor strength equal & normal bilaterally, speech normal Assessment/Plan 1. SOB (shortness of breath) (R06.02: Shortness of breath) Unsure the cause of the shortness of breath. It could be anxiety but may also be secondary to arrhythmia. At this time, we will do a nuclear med myocardial SPECT and we will do a sleep study. I encouraged the patient also to decrease his alcohol consumption and we will continue to monitor. 2. Arrhythmia (I49.9: Cardiac arrhythmia, unspecified) Again, may be caused by sleep apnea versus alcohol versus atrial fibrillation. Given that they have not had an event in over a month, I am concerned about ordering a Holter monitor and not catch this. We will do these two studies first and we will do a Holter monitor if the patient starts getting symptoms on more frequent basis. 3. Sleep disorder (G47.9: Sleep disorder, unspecified) Reviewed patient's sleep logs. Patient has a lot of awakenings concern for sleep apnea given his size and snoring. 4. Alcohol abuse (F10.10: Alcohol abuse, uncomplicated) Discussed this with the patient in detail. Patient will start to slowly cut down. Discussed risk of cutting alcohol out too quickly and patient understands. Reviewed lab work to make sure that there is no other concerns for alcohol such as hyponatremia. 5. Class 1 obesity due to excess calories in adult (E66.09: Other obesity due to excess calories) Diet and exercise advised. 6. BMI 30.0-30.9,adult (Z68.30: Body mass index [BMI] 30.0-30.9, adult) BMI education given. We will see the patient back in 1 month to recheck. ATTESTATION: Portions of this record may have been created with voice recognition artificial intelligence software, specifically [employer], [employer] and or [employer]. Substitutions may have occurred due to the inherent limitations of voice recognition and artificial intelligence software. Documentation services were performed after patient or guardian consented to allow [email or web address] to record this visit. BE[employer] clarity specialists and provider reviewed before signing. BEATA: Clau Pascal. Follow-up No qualifying data available Problem List/Past Medical History Ongoing Alcohol abuse Arrhythmia Arthritis BPH with urinary obstruction Bursitis, prepatellar, right Colon polyps Former smoker Hearing loss Hypercholesteremia Hypertension Incomplete bladder emptying Localized osteoarthritis of knees, bilateral Nocturia OAB (overactive bladder) Prostate cancer screening Sleep disorder SOB (shortness of breath) Historical ED (erectile dysfunction) Urge incontinence Procedure/Surgical History Arthroscopy of shoulder, Colonoscopy, Partial ostectomy of metatarsal bone, Vasectomy. Medications hydrochlorothiazide-ir besarta (more content not included)... Normal [facility] Comment on above: Result Comment: Elec tronically Signed By: Jemal Gill MD\.br\Date and Time Signed: 03/03/23 12:35 EDT\.br\Electronically Co-Signed By: Clau Pascal\.br\Date and Time Co-Signed: 03/01/23 15:04 EDT Insurance Correspondenceon Insurance Correspondence [id number]#1.0 0TIFF Normal [facility] Ambulatory Visit Summaryon 1 Ambulatory Visit Summary NGHIA MEDINA :1960 Visit Date:03/01/2023 Ambulatory Visit Instructions Your Diagnosis SOB (shortness of breath) BMI 30.0-30.9,adult Class 1 obesity due to excess calories in adult Your Care Team Attending Physician - Jemal Gill MD Primary Care Physician - Jemal Gill MD This Is Your Medications List diclofenac topical (Voltaren Gel 1% Gel) hydrochlorothiazide-ir besartan (hydrochlorothiazide-i rbesartan 12.5 mg-150 mg Tab) mirabegron (Myrbetriq 25 mg oral tablet, extended release) multivitamin (Multi Vitamin+) Procedures Performed Arthroscopy of shoulder, Colonoscopy, Partial ostectomy of metatarsal bone, Vasectomy. Discharge Vitals Temperature (Oral) 36.8 ?C Heart Rate (Peripheral) 86 Respiratory Rate 18 Blood Pressure 118/66 Height 190 cm Height 75 in Weight 110.3 kg Weight 242.66 lb BMI 30.55 What to do next Scheduled Follow-Up Appointments Wednesday 6:20 PM EST With: Jemal Gill MD Where: [address] \.br\ Medications\.br \ What How Much When Instructions\.b r\ Unchanged diclofenac topical (Voltaren Gel 1% Gel) See instructions apply small amount to knee daily \.br\ Unchanged hydrochlorothia zide-irbesartan (hydrochlorothi azide-irbesarta n 12.5 mg-150 mg Tab) See instructions TAKE 2 TABLETS BY MOUTH EVERY DAY \.br\ Unchanged mirabegron (Myrbetriq 25 mg oral tablet, extended release) 1 Tablets By Mouth Every day Duration: 30 Days\.br\ Unchanged multivitamin (Multi Vitamin+)\.br\ Allergies\.br\ No Known Medication Allergies\.br\ Problems\.br\ Ongoing - Any problem that you are currently receiving treatment for.\.br\ Arthritis\.br\ BPH with urinary obstruction\.br \ Bursitis, prepatellar, right\.br\ Colon polyps\.br\ Former smoker\.br\ Hearing loss\.br\ Hypercholestere deirdre\.br\ Hypertension\.b r\ Incomplete bladder emptying\.br\ Localized osteoarthritis of knees, bilateral\.br\ Nocturia\.br\ OAB (overactive bladder)\.br\ Physical exam\.br\ Prostate cancer screening\.br\ SOB (shortness of breath)\.br\ Historical - Any problem that you are no longer receiving treatment for.\.br\ ED (erectile dysfunction)\.b r\ Urge incontinence\.b r\ \.br\ [facility] Immunization Recordson 02-25 Immunization Records [id number]#1.0 0TIFF Normal [facility] COVID Quick Testingon 2021 Result Positive Arkeo Other CBC AUTO DIFFon 02-19-2022 BASO # 0.1 103/ul Normal 0.0-0.1 [facility] Comment on above: Performed By: #### C BC #### [facility] [address] [place], [place] [address] Dr. Nikita Ferrer Basophils/100 WBC (Bld) 0.8 % Normal 0.2-2.0 [facility] Comment on above: Performed By: #### C BC #### [facility] [address] [address] [address] Nikita Ferrer EO # 0.2 103/ul Normal 0.0-0.7 [facility] Comment on above: Performed By: #### C BC #### [facility] [address] [place] [address] Dr. Nikita Ferrer Eosinophils/100 WBC (Bld) 2.6 % Normal 0.9-7.0 [facility] Comment on above: Performed By: #### C BC #### [facility] [address] [address] [address] Nikita Ferrer Erythrocyte distribution width (RBC) [Ratio] 12.9 % Normal 11.0-15.0 [facility] Comment on above: Performed By: #### C BC #### [facility] [address] [address] [address] Nikita Ferrer Hematocrit (Bld) [Volume fraction] 42.3 % Normal 42.0-54.0 [facility] Comment on above: Performed By: #### C BC #### [facility] [address] [place] [address] Dr. Nikita Ferrer Hemoglobin (Bld) [Mass/Vol] 14.0 g/dL Normal 14.0-18.0 [facility] Comment on above: Performed By: #### C BC #### [facility] [address] [place] [address] Dr. Nikita Ferrer IG # 0.02 10e3/ul Normal 0.00-0.03 [facility] Comment on above: Performed By: #### C BC #### [facility] [address] [place] [address] Dr. Nikita Ferrer IG % 0.3 % Normal 0.0-0.5 [facility] Comment on above: Performed By: #### C BC #### [facility] [address] [place] [address] Dr. Nikita Ferrer LYMPH # 1.1 103/ul Critically low 1.2-3.8 [facility] Comment on above: Performed By: #### C BC #### [facility] [address] [place] [address] Dr. Nikita Ferrer Lymphocytes/100 WBC (Bld) 17.1 % Critically low 20.5-60.0 [facility] Comment on above: Performed By: #### C BC #### [facility] [address] [place] [address] Dr. Nikita Ferrer MANUAL DIFF REQ NO Normal [facility] Comment on above: Performed By: #### C BC #### [facility] [address] [place] [address] Dr. Nikita Ferrer MCH (RBC) [Entitic mass] 31.8 pg Normal 25.9-34.0 [facility] Comment on above: Performed By: #### C BC #### [facility] [address] [place] [address] Dr. Nikita Ferrer MCHC (RBC) [Mass/Vol] 33.1 g/dL Normal 29.9-35.2 [facility] Comment on above: Performed By: #### C BC #### [facility] [address] [place] [address] Dr. Nikita Ferrer MCV (RBC) [Entitic vol] 96.1 fL Critically high 80.0-94.0 [facility] Comment on above: Performed By: #### C BC #### [facility] [address] [address] [address] Nikita Ferrer MONO # 0.8 103/ul Normal 0.3-0.8 [facility] Comment on above: Performed By: #### C BC #### [facility] [address] [address] [address] Nikita Ferrer Monocytes/100 WBC (Bld) 12.2 % Critically high 1.7-12.0 [facility] Comment on above: Performed By: #### C BC #### [facility] [address] [place] [address] Dr. Nikita Ferrer NEUT # 4.4 103/ul Normal 1.4-6.5 [facility] Comment on above: Performed By: #### C BC #### [facility] [address] [place] [address] Dr. Nikita Ferrer Neutrophils/100 WBC (Bld) 67.0 % Normal 43.0-75.0 [facility] Comment on above: Performed By: #### C BC #### [facility] [address] [place] [address] Dr. Nikita Ferrer Platelet mean volume (Bld) [Entitic vol] 10.3 fL Normal 9.5-13.5 [facility] Comment on above: Performed By: #### C BC #### [facility] [address] [place] [address] Dr. Nikita Ferrer PLT 240 103/ul Normal 150-450 [facility] Comment on above: Performed By: #### C BC #### [facility] [address] [place] [address] Dr. Nikita Ferrer RBC 4.40 106/ul Critically low 4.70-6.10 [facility] Comment on above: Performed By: #### C BC #### [facility] [address] [place] [address] Dr. Nikita Ferrer WBC 6.6 103/ul Normal 4.0-11.0 [facility] Comment on above: Performed By: #### C BC #### [facility] [address] [place], [place] [address] Dr. Nikita Ferrer LIPID PROFILEon 02-19-2022 CHOL-HDL RATIO NORM SEE BELOW Normal [facility] Comment on above: Result Comment: 3.3 - 4.4 LOW RISK 4.4 - 7.1 AVERAGE RISK 7.1 - 11.0 MODERATE RISK >11.0 HIGH RISK Performed By: #### L IPID, CMP #### [facility] [address] [place], [place] [address] Dr. Nikita Ferrer Cholesterol [Mass/Vol] 236 mg/dL Critically high <=200 [facility] Comment on above: Performed By: #### L IPID, CMP #### [facility] [address] [address] [address] Nikita Ferrer Cholesterol in HDL [Mass/Vol] 100 mg/dL Critically high 40-60 [facility] Comment on above: Performed By: #### L IPID, CMP #### [facility] [address] [address] [address] Nikita Ferrer Cholesterol in LDL [Mass/Vol] 126.4 mg/dL Normal [facility] Comment on above: Performed By: #### L IPID, CMP #### [facility] [address] [place], [place] [address] Dr. Nikita Ferrer Cholesterol.total/C holesterol in HDL [Mass ratio] 2.4 {ratio} Normal [facility] Comment on above: Performed By: #### L IPID, CMP #### [facility] [address] [place], [place] [address] Dr. Nikita Ferrer HDL NORMAL > or = 60 mg/dl - LO W CARDIOVASCULAR RISK <40 mg/dl - HIGH CARDIOVASCULAR RISK Normal [facility] Comment on above: Performed By: #### L IPID, CMP #### [facility] [address] [place], [place] [address] Dr. Nikita Ferrer LDL CALC NORMAL SEE BELOW Normal [facility] Comment on above: Result Comment: <100 mg/dl OPTIMAL 100 - 129 mg/dl NEAR OR ABOVE OPTIMAL 130 - 159 mg/dl BORDERLINE HIGH 160 - 189 mg/dl HIGH >190 mg/dl VERY HIGH Performed By: #### L IPID, CMP #### [facility] [address] [place] [address] Dr. Nikita Ferrer Triglyceride [Mass/Vol] 48 mg/dL Normal <=150 [facility] Comment on above: Performed By: #### L IPID, CMP #### [facility] [address] [place] [address] Dr. Nikita Ferrer VLDL CALC 9.6 mg/dL Normal [facility] Comment on above: Performed By: #### L IPID, CMP #### [facility] [address] [place] [address] Dr. Nikita Ferrer PROF 14(COMP METB)on 022 Albumin [Mass/Vol] 3.9 g/dL Normal 3.4-5.0 [facility] Comment on above: Performed By: #### L IPID, CMP #### [facility] [address] [place] [address] Dr. Nikita Ferrer Albumin/Globulin [Mass ratio] 1.2 {ratio} Normal [facility] Comment on above: Performed By: #### L IPID, CMP #### [facility] [address] [place] [address] Dr. Nikita Ferrer ALP [Catalytic activity/Vol] 64 U/L Normal 46-116 [facility] Comment on above: Performed By: #### L IPID, CMP #### [facility] [address] [place] [address] Dr. Nikita Ferrer ALT [Catalytic activity/Vol] 30 U/L Normal 16-63 [facility] Comment on above: Performed By: #### L IPID, CMP #### [facility] [address] [place] [address] Dr. Nikita Ferrer Anion gap [Moles/Vol] 9.2 mmol/L Normal [facility] Comment on above: Performed By: #### L IPID, CMP #### [facility] [address] [place] [address] Dr. Nikita Ferrer AST [Catalytic activity/Vol] 19 U/L Normal 15-37 [facility] Comment on above: Performed By: #### L IPID, CMP #### [facility] [address] [place] [address] Dr. Nikita Ferrer Bilirubin [Mass/Vol] 1.4 mg/dL Critically high 0.2-1.0 [facility] Comment on above: Performed By: #### L IPID, CMP #### [facility] [address] [place] [address] Dr. Nikita Ferrer Calcium [Mass/Vol] 9.0 mg/dL Normal 8.5-10.1 [facility] Comment on above: Performed By: #### L IPID, CMP #### [facility] [address] [place] [address] Dr. Nikita Ferrer Chloride [Moles/Vol] 101 mmol/L Normal 98-107 [facility] Comment on above: Performed By: #### L IPID, CMP #### [facility] [address] [place] [address] Dr. Nikita Ferrer CO2 [Moles/Vol] 29.2 mmol/L Normal 21.0-32.0 [facility] Comment on above: Performed By: #### L IPID, CMP #### [facility] [address] [place] [address] Dr. Nikita Ferrer Creatinine [Mass/Vol] 0.95 mg/dL Normal 0.70-1.30 [facility] Comment on above: Performed By: #### L IPID, CMP #### [facility] [address] [place] [address] Dr. Nikita Ferrer EGFR-AF SPANISH >60 Normal >=60 [facility] Comment on above: Performed By: #### L IPID, CMP #### [facility] [address] [place] [address] Dr. Nikita Ferrer EGFR-NON AF SPANISH >60 Normal >=60 [facility] Comment on above: Performed By: #### L IPID, CMP #### [facility] [address] [place] [address] Dr. Nikita Ferrer Globulin (S) [Mass/Vol] 3.2 g/dL Normal [facility] Comment on above: Performed By: #### L IPID, CMP #### [facility] [address] [place] [address] Dr. Nikita Ferrer Glucose [Mass/Vol] 107 mg/dL Critically high 74-106 [facility] Comment on above: Performed By: #### L IPID, CMP #### [facility] [address] [place] [address] Dr. Nikita Ferrer Potassium [Moles/Vol] 4.4 mmol/L Normal 3.5-5.1 [facility] Comment on above: Performed By: #### L IPID, CMP #### [facility] [address] [place] [address] Dr. Nikita Ferrer Protein [Mass/Vol] 7.1 g/dL Normal 6.4-8.2 [facility] Comment on above: Performed By: #### L IPID, CMP #### [facility] [address] [place] [address] Dr. Nikita Ferrer Sodium [Moles/Vol] 135 mmol/L Critically low 136-145 Th [facility] Comment on above: Performed By: #### L IPID, CMP #### [facility] [address] [place] [address] Dr. Nikita Ferrer Urea nitrogen [Mass/Vol] 17.0 mg/dL Normal 7.0-18.0 [facility] Comment on above: Performed By: #### L IPID, CMP #### [facility] [address] [place] [address] Dr. Nikita Ferrer Urea nitrogen/Creatinine [Mass ratio] 17.9 mg/mg Normal [facility] Comment on above: Performed By: #### L IPID, CMP #### [facility] [address] [place] [address] Dr. Nikita Ferrer MRI Knee w/o Righton 021 MRI Knee w/o Right HISTORY: Right knee pain for 5 weeks. TECHNIQUE: Routine non-contrast MRI of the right knee COMPARISON: None RESULT: MENISCI: Medial Meniscus: Small area of horizontal tearing involving the posterior horn and body, without significant meniscal displacement. Lateral Meniscus: Intact LIGAMENTS: ACL, PCL, MCL, LCL Complex: Intact CARTILAGE: Large area of high-grade partial-thickness to full-thickness chondral loss involving the medial compartment. Large area of full-thickness chondral loss involving the patellofemoral compartment. Small osteophytes. TENDONS: Distal quadriceps intact. Patellar tendon intact. Popliteus tendon intact. BONES AND MARROW: Diffuse bone marrow edema throughout the medial femoral condyle with associated subchondral fracture line measuring approximately 2.0 cm AP by 0.8 cm transverse. MUSCLES: Muscle bulk and signal intensity are normal. JOINT FLUID AND SYNOVIUM: Large joint effusion. 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 Multiple joint bodies posteriorly with the largest measuring around 9 mm. No García's cyst. OTHER: Subcutaneous edema anteriorly. IMPRESSION: Medial meniscal tear. Subchondral insufficiency fracture medial femoral condyle. 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 Report reported and signed by Eddie Huerta on 04/29/2021 1313 Normal [facility] [employer] Cabinet Attendant CNPTashia 09-26-2019 [facility] [place] Telephone (ORQ) NGHIA MEDINA ([id number]) 1960 M Date Time Provider Department 09/26/19 NIA CAMILO ORQ During your visit today, we recorded the following information about you: Chloe Mcmillan 09/26/2019 1:43 PM Signed faxed Lab and xray results and OV note from 09/14/19. Confirmation received 09/25 at 1323 Allergies As of Date: 09/26/2019 (No Known Allergies) Date Reviewed: 09/08/2019 Reviewed by: Hector Aquino (Fel) - Fully Assessed Reason for Visit: Electronic Communication [890] Prescriptions as of 09/26/2019 Sig: ACETAMINOPHEN 325 MG TABLET Take 2 tablets by mouth q 4 H* IRBESARTAN 150 MG-HYDROCHLORO* Take 1 tablet by mouth. MULTIVITAMIN-IRON 9 MG-FOLIC * Take 1 tablet by mouth. COENZYME Q10 30 MG CAPSULE Take 30 mg by mouth. Problem List As Of Date 09/26/2019 Noted Resolved Myalgia [M79.10] 07/12/2019 Stiffness of joint [M25.60] 07/12/2019 Weakness [R53.1] 07/12/2019 Disturbance of skin sensation [R20.9] 07/12/2019 Concern about neurological disease without diag*07/12/2019 Pain of both shoulder joints [M25.511, M25.512] 09/11/2019 Joint swelling [M25.40] 09/11/2019 Abnormal EMG [R94.131] 09/11/2019 Encounter Status:Closed by CHLOE KEYS on 09/26/19 Normal [facility] C-Reactive Proteinon 020 CRP [Mass/Vol] 0.5 mg/dL Normal <0.9 [facility] Comment on above: Performed By: #### W SR, CK, CRP, VITD, ALD, HBA1C, KLFRS, IFESC, CELCMP #### [facility] [employer] [address] [place], [place] [address] #### MYOSPL #### [address] [address] [phone] CCP Antibody, IgGon 09-18-19 20 CCP Antibody, IgG <15 Normal <20 [facility] Comment on above: Result Comment: < 20 units: Negative 20-39 units: Weak Positive 40-59 units: Moderate Positive > 60 units: Strong Positive The following results were obtained with the [employer] CCP3 IgG CHAYA. Anti-CCP values obtained with different manufacturers' assay methods may not be used interchangeably. The magnitude of the reported IgG levels cannot be correlated to an endpoint titer. Performed By: #### W SR, CK, CRP, VITD, ALD, HBA1C, KLFRS, IFESC, CELCMP #### [facility] [employer] [address] [place], [place] [address] #### MYOSPL #### [facility] [address] [place] [address] [phone] HLA-B27 PCRon 09-18-2019 HLA-B27 DNA Result Negative Normal [facility] Comment on above: Result Comment: HLA- B27 is strongly associated with ankylosing spondylitis (). HLA-B27 is also associated with other seronegative arthropathies such as Amauri syndrome and psoriatic arthritis as well as extra-articular diseases such as anterior uveitis and inflammatory bowel disease. Greater than 90% of patients with are HLA-B27 positive. The frequency of HLA-B27 varies by ethnic group but generally <10 % in most [place] populations. HLA-B27 associated susceptibility to varies by population and HLA-B27 alleles detected. Some alleles such as B27:05 are associated with high susceptibility while others such B27:06 and B27:09 are associated with low susceptibility. HLA-B27 allele typing is recommended in HLA-B27 positive cases. HLA typing performed by PCR-RSSOP and/or SBT. This test was developed and its performance characteristics determined by [employer]. The test has not been cleared or approved by the [place] FDA. However, FDA approval was not necessary since this lab is certified under CLIA for high complexity testing. Test performed by: [employer], [facility] [employer] [facility] [address] [address] CLIA [id number] Performed By: #### W SR, CK, CRP, VITD, ALD, HBA1C, KLFRS, IFESC, CELCMP #### [address] [place] [id number] #### MYOSPL #### [facility] [address] [place] [address] [phone] PROGRESSon 09-18-2019 PROGRESS HNO ID: [id number] Author: Saad Anaya (Tech) Service: ? Author Type: Packer Inspector Type: Progress Notes Filed: 09/18/2019 11:22 AM Note Text: Radiology Service Progress Note PATIENT NAME: Nghia Medina DATE OF SERVICE: September 18, 2019 TIME: 11:20 AM PATIENT IDENTITY VERIFICATION COMPLETED USING TWO (2) IDENTIFIERS: Name and Date of confirmed by patient verbally. FALL SCREENING: Has the patient had 2 falls in the last year or 1 fall with injury or currently using an Ambulatory Assistive Device (Walker, Cane, Wheelchair, Crutches, etc.)? No PATIENT GENDER DATA: Male PATIENT RELEVANT IMPLANT DATA REVIEWED: Not Applicable RADIOLOGY DEPARTMENT: General X-ray: Exam(s) Completed: Pelvis X-Ray: Pelvis with Hip Bilateral Lower Extremity X-Ray(s): Feet, Bilateral: Upper Extremity X-Ray(s): Hand, bilateral : PERIPHERAL IV DATA: Not applicable SIGNED BY: Saad Anaya September 18, 2019 11:20 AM Normal [facility] Sed Rate Westergrenon 2019 Sed Rate Westergren 5 mm/hr Normal 0-15 [facility] Comment on above: Performed By: #### W SR, CK, CRP, VITD, ALD, HBA1C, KLFRS, IFESC, CELCMP #### [facility] [address] [phone] #### MYOSPL #### [facility] [address] [place] [address] [phone] Uric Acidon 09-18-2019 Urate [Mass/Vol] 5.4 mg/dL Normal 4.0-8.1 [facility] Comment on above: Performed By: #### W SR, CK, CRP, VITD, ALD, HBA1C, KLFRS, IFESC, CELCMP #### [facility] [employer] [address] [phone] #### MYOSPL #### [facility] [address] [place] [address] [phone] XR FOOT SURVEY 1V AP BILon 0 09-18-2019 XR FOOT SURVEY 1V AP MARCIA * * *Final Report* * * DATE OF EXAM: Sep 18 2019 11:24AM [id number] [id number] - XR FOOT SURVEY 1V AP MARCIA / PROCEDURE REASON: Arthralgia, unspecified joint * * * * Physician Interpretation * * * * RESULT: BILATERAL FOOT RADIOGRAPHS History: Arthralgia, unspecified joint Comparison: None. Technique: AP radiograph of each foot, one view each Result: Right foot: No acute fracture or dislocation. Bipartite fibular hallux sesamoid. Mild narrowing of the first MTP joint and small osteophytes. Mild scattered IP joint degenerative changes with mild joint space narrowing and small osteophytes. No visualized erosion. Soft tissues are unremarkable. Left foot: No acute fracture or dislocation. Bipartite fibular hallux sesamoid. Subcentimeter well-corticated ossification along the lateral aspect of the first MTP joint which may relate to remote injury. Mild to moderate narrowing of the first MTP joint and marginal osteophytes. Mild scattered IP joint degenerative changes with joint space narrowing and small osteophytes. No visualized erosion. Soft tissues are unremarkable. IMPRESSION: Bilateral foot degenerative changes. Transcribe Date/Time: Sep 18 2019 12:15P Dictated by: ALEJANDRO LEE MD This examination was interpreted and the report reviewed and electronically signed by: ALEJANDRO LEE MD on Sep 18 2019 12:16PM EST Thank you for allowing us to participate in the care of your patient. Should there be any questions regarding this interpretation, please call [phone]. If you are unable to reach us at the number above, please feel free to contact [facility] at [phone]. [id number] Normal [facility] XR HAND/WRIST SURVEY 1V PA B ILon 09-18-2019 XR HAND/WRIST SURVEY 1V PA MARCIA * * *Final Report* * * DATE OF EXAM: Sep 18 2019 11:24AM [id number] [id number] - XR HAND/WRIST SURVEY 1V PA MARCIA / PROCEDURE REASON: multiple diagnoses * * * * Physician Interpretation * * * * RESULT: BILATERAL HAND RADIOGRAPHS History: Joint swelling Arthralgia, unspecified joint Comparison: None. Technique: PA radiographs of each hand, one view each. Result: Right hand: No acute fracture or dislocation. Mild to moderate narrowing of the first CMC joint with tiny osteophytes. Mild to moderate narrowing of the first, second, and third MCP joints with marginal osteophytes greatest involving the third MCP joint. Third metacarpal head subchondral cysts. Mild scattered IP joint space narrowing and tiny osteophytes. No definite erosion. Soft tissues are unremarkable. Left hand: No acute fracture or dislocation. Mild to moderate narrowing of the first CMC joint with tiny osteophytes. Mild to moderate narrowing of the first, second, and third MCP joints with small osteophytes with small osteophytes, greatest involving the third MCP joint. Suspected third metacarpal head subchondral cysts. Mild first IP joint space narrowing and small osteophytes. Scattered DIP joint narrowing. No definite erosion. Soft tissues are unremarkable. IMPRESSION: Bilateral hand degenerative arthritis. Transcribe Date/Time: Sep 18 2019 12:16P Dictated by: ALEJANDRO LEE MD This examination was interpreted and the report reviewed and electronically signed by: ALEJANDRO LEE MD on Sep 18 2019 12:21PM EST Thank you for allowing us to participate in the care of your patient. Should there be any questions regarding this interpretation, please call [phone]. If you are unable to reach us at the number above, please feel free to contact [facility] at [phone]. [id number] Normal [facility] XR HIP MARCIA 5V PEL+ AP/LAT EA HIPon 09-18-2019 XR HIP MARCIA 5V PEL+ AP/LAT EA HIP * * *Final Report* * * DATE OF EXAM: Sep 18 2019 11:24AM [id number] [id number] - XR HIP MARCIA 5V PEL+ AP/LAT EA HIP / PROCEDURE REASON: Arthralgia, unspecified joint * * * * Physician Interpretation * * * * RESULT: PELVIS AND BILATERAL HIP RADIOGRAPHS History: Arthralgia, unspecified joint Comparison: None. Technique: AP pelvis, one view. AP and lateral bilateral hips, two views each. Result: No acute fracture or dislocation. Hip joint space are maintained bilaterally with tiny osteophytes. Extensive symphysis and sacroiliac joints are maintained. Bilateral pelvic enthesopathy. Degenerative changes of the included lower lumbar spine. Rounded calcifications overlying the right pelvis suggestive of phleboliths. IMPRESSION: Minimal bilateral hip degenerative changes. Partially included lower lumbar spine degenerative changes. Transcribe Date/Time: Sep 18 2019 12:13P Dictated by: ALEJANDRO LEE MD This examination was interpreted and the report reviewed and electronically signed by: ALEJANDRO LEE MD on Sep 18 2019 12:15PM EST Thank you for allowing us to participate in the care of your patient. Should there be any questions regarding this interpretation, please call [phone]. If you are unable to reach us at the number above, please feel free to contact [facility] at [phone]. [id number] Normal [facility] PROGRESSon 09-14-2019 PROGRESS HNO ID: [id number] Author: Nia Camilo Service: ? Author Type: Physician Type: Progress Notes Filed: 09/15/2019 12:11 PM Note Text: [facility] DEPARTMENT OF RHEUMATIC AND IMMUNOLOGIC DISEASES Patient Name: Nghia Medina : 1960 Primary Care Provider: Ghanshyam Guillory MD Reason for visit: This is the initial evaluation for for question of shoulder pain. The patient is seen in Rheumatology consultation at the request of Dr. Tineo. This visit was conducted as a virtual visit. Chief Complaint: Shoulder pain History of Present Illness: The following history was derived from my interview with the patient and a review of the patient's available past medical records. is a very pleasant 59 year old male who presents for further evaluation regarding shoulder pain. 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 He does physical home activities as well. 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 Around 2018, he went hunting with his brother in law. He had right arm soreness and could not raise it over his head. He returned home. About 15 years ago, he had right shoulder surgery (bone spur) and the pain felt similar so he saw his orthopedic surgeon. MRI was done of the right shoulder. It was reviewed in 05/2019. He was told that there was a slight tear of the right rotator cuff. There was plan for orthopedic surgery but symptoms progressed. In 05/2019, pain the progress from right shoulder to the bilateral shoulders. He had some neck pain as well. He developed numbness in the left hand concern for carpal tunnel syndrome. Fingers were going numb during the daytime. He underwent cervical spine MRI that was reportedly unremarkable, per patient. Neurology note mentions degenerative changes. PCP thought that he may have bilateral frozen shoulders. Pain worsens with activities. PT was done (12 sessions over 4 weeks in ). He denies ever having shoulder swelling, inflammation, erythema, warmth. No other areas of joint inflammation reported, but he thinks that there may be right 3rd PIP swelling/prominence. No other finger joints are swollen. He underwent left sided carpal tunnel surgery on 06/07/2019. This did not provide relief. There is still numbness of the same left sided fingers. The pain at night has improved. He has pain in legs that worsens when he sits for prolonged periods. There is difficulty standing up from a chair due to pain. He has good and bad days with the joint pain. He is unsure if there are clear exacerbating factors, but pain can worsen with overexertion and also prolonged sitting. He has morning stiffness involving the legs (upon standing), shoulders, wrists. The neck is becoming more stiff. Morning stiffness improves with movement/exercise. He has tried Tylenol and Naproxen for the pain. These do not really provide much relief. No fevers, chills, night sweats, weight loss, skin rases, mucosal ulcers, sicca, chest pain, pleurisy, Raynaud's phenomenon, worsening alopecia. He denies gastrointestinal or genitourinary symptoms. Review of Systems: See HPI. Past Medical History: PAST MEDICAL HISTORY Diagnosis Date - BPH (benign prostatic hyperplasia) - HTN (hypertension) Past Surgical History: PAST SURGICAL HISTORY Procedure Laterality Date - LEFT WRIST CARPAL TUNNEL ONLY Family History: FAMILY HISTORY Problem Relation Age of Onset - Sarcoidosis Mother - other (lung cancer) Mother - other (oral cancer) Father - other (bone cancer) Paternal Grandfather Social history: Social History Tobacco Use - Smoking status: Never Smoker - Smokeless tobacco: Never Used Substance Use Topics - Alcohol use: Not Currently - Drug use: Not on file Medications Prior to Visit: Current Outpatient Medications on File Prior to Visit Medication Sig - acetaminophen (TYLENOL) 325 mg tablet Take 2 tablets by mouth q 4 HR. - naproxen sod/diphenhydramine (ALEVE PM ORAL) Take by mouth. - Irbesartan-Hydrochloro thiazide 150-12.5 mg per tablet Take 1 tablet by mouth. - therapeutic multivitamin w/ iron (THERAGRAN-M) 9 mg iron-400 mcg tablet Take 1 tablet by mouth. - naproxen sodium 220 mg cap Take 220 mg by mouth. - coenzyme Q10 30 mg capsule Take 30 mg by mouth. No current facility-administered medications on file prior to visit. Allergies: ALLERGIES No Known Allergies Limited Virtual Physical Examination: General: Patient is alert, oriented, not in acute distress HEENT: Conjunctiva do not appear injected Respiratory: Non-labored breathing Neurological exam: Moving upper extremities. Able to lift both arms above his head. Walking. Skin exam: There are no visible rashes (limited exam) Musculoskeletal exam: Able to make fists bilaterally. Visual inspection of hands and joints was limited. Data: Prior medical records were reviewed and are summarized as below: Appointment on 07/06/2019 Component Date Value - WSR 07/06/2019 10 - CRP 07/06/2019 0.8 - CK 07/06/2019 78 - Aldolase 07/06/2019 4.2 - Vitamin D 25 Hydroxy 07/06/2019 34.5 - Celiac Pnl Interpretation 07/06/2019 No evidence of celiac disease. Celiac risk alleles are present. - HLA-DQA1 Genotype 07/06/2019 05, 03 - HLA-DQB1 Genotype 07/06/2019 02:01, 03:02 - Celiac Risk Haplotype 07/06/2019 Positive* - IgA 07/06/2019 200 - Transglutaminase Ab, IgA 07/06/2019 5 - Celiac Category 07/06/2019 5 - Celiac Panel Comment 07/06/2019 SEE COMMENT - Hemoglobin A1C 07/06/2019 5.7* - Estimated Average Glucose 07/06/2019 117 - MPA Result 07/06/2019 No M protein is identified. - Staff Review (MPA) 07/06/2019 Reviewed by Shaian Donohue MD ([id number]) - Palisade Free, Serum 07/06/2019 15.1 - Lambda Free, Serum 07/06/2019 15.5 - K/L Ratio, Serum 07/06/2019 0.97 - Shea-1 Antibody, IgG 07/06/2019 0 - Mi-2 Antibody 07/06/2019 Negative - PL-7 Antibody 07/06/2019 Negative - PL-12 Antibody 07/06/2019 Negative - P155/140 Antibody 07/06/2019 Negative - EJ Antibody 07/06/2019 Negative - SRP Antibody 07/06/2019 Negative - OJ Antibody 07/06/2019 Negative - SAE1 Antibody 07/06/2019 Negative - NXP-2 Antibody 07/06/2019 Negative - MDA5 Antibody 07/06/2019 Negative - TIF-1 gamma Antibody 07/06/2019 Negative - Myositis Interpretation 07/06/2019 SEE NOTE Outside labs, per neurology note: CK 06/16/19: 50 (NL 22- 269u/L) Heavy metals, arsenic, muercury: normal AChR binding AB: negative MMA 138 (NL 0-378nmol/L) MuSK antibody negative RA, NANCY normal Copper normal RPR nonreactive Lyme antibody negative Imaging: Per neurology note, MRI brain 06/29/19: NAP Other tests: Per neurology note, EMG/NCS 06/22/19: 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 Minimal myopathic units in very few proximal muscles which are insufficient for definite diagnosis. EMG/NCS 06/20/19: UE: there are myopathic units in prox muscles b/l more on right suggestive of myopathy. Bilateral CTS no cervical radiculopathy, no brachial plexopathy. Assessment and Plan: This is an initial evaluation for for further evaluation of shoulder pain and stiffness. This visit was conducted as a virtual visit. 1. Shoulder pain, stiffness He has had shoulder pain/stiffness since a hunting expedition in 03/2019. There was difficulty lifting the right shoulder/arm. [facility] orth[facility]. MRI of the right shoulder reportedly indicated a rotator cuff tear. Orthopedic surgery was planned, but he developed bilateral symptoms and left hand numbness so the rotator cuff surgery was deferred. MRI of cervical spine reportedly showed degenerative changes. An outside EMG/NCS (06/22/19) indicated generalized PN axon loss with reported minimal myopathic appearing units in very few proximal muscles insufficient for diagnosis. He was referred to [facility] neuromuscular clinic. Per note, CK, heavy metals, AChR Ab, MuSK, copper, rheumatoid factor, NANCY, Lyme serologies were normal. Labs done at the [facility] include negative polymyositis/dermatomy ositis panel, normal SIFE, slightly elevated Hgb A1c (5.7%), normal CK AND aldolase, normal ESR AND CRP, and normal Vitamin D level. Celiac disease serologies were negative, but there were very high risk alleles. Per last neuromuscular note (09/08/19), his presentation was not concerning for a myopathy. He was referred to rheumatology for consideration of an inflammatory rheumatic disease (e.g. PMR) vs a non-inflammatory musculoskeletal condition. His overall presentation is not overtly concerning for an autoimmune/inflammator y rheumatic disease process. Inflammatory markers, CK, myositis antibodies, NANCY, and rheumatoid factor were normal or negative. I believe PMR would be unlikely considering the normal acute phase reactants and intermittent severity. While his age does not exclude PMR, the diagnosis has a peak incidence between ages 70-80. I will complete the work-up for inflammatory arthropathies by repeating inflammatory markers, checking CCP antibody, uric acid, HLA-B27, and checking hand, foot, and hip x-rays. Again, my pre-test probability is relatively low for rheumatic disease. Instead, multi-focal local musculoskeletal (orthopedic) conditions seem more likely, such as osteoarthritis, adhesive capsulitis, tendinopathy. I anticipate that he will ultimately need to follow-up again with orthopedics for these considerations. 2. Osteoarthritis See discussion above regarding his presentation. We recommend maintaining a healthy weight to slow the progression of osteoarthritis in addition to following the [employer] Osteoarthritis Treatment Guidelines: (1) non-pharmacologic modalities such as aerobic, aquatic, and/or resistance exercises as well as weight loss for overweight patients; in addition to (2) pharmacologic modalities - unless otherwise contraindicated - such as acetaminophen as first line, oral and topical NSAIDs as second line, tramadol as third line and intra-articular corticosteroid injections (Marquis MC, et al. Arthritis Care Res ([place]). 2012;64(4):465). 3. Rotator cuff tendinopathy, possible adhesive capsulitis See above. Will need orthopedics follow-up, regardless. Non-surgical management can be considered with orthopedics, sports medicine, and/or PMANDR. 4. Left CTS s/p decompression Follow-up with primary care provider, orthopedist, and/or neurology, as needed. Nia Camilo MD Rheumatology Attending September 14, 2019 Today, I personally spent >30 minutes in direct face to face time with the patient, of which greater than 50% of the time was spent in patient education, counseling, and coordination of care as described above. Issues discussed: Diagnosis and implications on future health, effects and side effects of present and future potential medications, test results as well as further testing and medications required. Follow-up: TBD. Normal [facility] PROGRESSon 09-08-2019 PROGRESS HNO ID: [id number] Author: Catina Morren Service: ? Author Type: Physician Type: Progress Notes Filed: 09/11/2019 9:43 AM Note Text: ESTABLISHED PATIENT DISTANCE HEALTH VISIT (COVID-19 pandemic-related contingency encounter format)- Encounter completed via virtual visit (audio and video) using [employer] software, with patient verbal permission obtained for this encounter type *(special provision to allow the use of this under the current pandemic circumstances per [place] Department of Health and Human Services- [email or web address] [email or web address]) Date of last clinic visit:07/06/19 Current neuromuscular medicine diagnosis(es): Myalgia, joint stiffness Brief HPI: 59 year old male with PMH: HTN, Arthritis, BPH, L. CTS s/p decompression. Who initially presented to [facility] on 07/06/19 for evaluation of concern for muscle weakness. He noted difficulty with raising his arms up above his head bilaterally due to significant bilateral shoulder pains. He was previously seen by Orthopedics Dr. Wang who completed an MRI of the shoulder that showed mild rotator cuff tear in the right arm. He was planned for surgery but then develped symptoms in his left arm. MRI cervical spine showed degenerative changes. 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 CK has been normal at 50 (06/16/19), heavy metals, AChR Ab, MuSK, copper, RA, NANCY, Lyme AB all normal. Subjective/Interval developments: Initially felt his bilateral shoulder symptoms were improved but in the last several months he has noticed return of shoulder pains when he raises his arms above 90 degrees.If he does not reach over his head he is ok. He has been using stretch ropes for shoulder exercises but this can cause more shoulder pain. Pain seems to be worse in the morning and gradually improves throughout the day as he moves around more. He notes difficulty rising his arms up above his head to comb his hair or brush his teeth which causes significant pain. When he lays in bed in the morning he has difficulty rolling over due to shoulder pain. There is muscle tenderness in his shoulder and arms muscles. There is significant stiffness in his shoulders as well. He notes that the joints And his hips also seem to be painful especially in the morning, he has started to notice that the joints in his hands appear swollen sometimes throughout the day they can also be warm to touch or red. He tried naproxen before which helped but stopped taking this due to concern for COVID. He is currently taking Tylenol which helps as well. He notes his legs are strong and he is able to walk several blocks without difficulty and rise up from a seated position without the use of his hands, however early in the morning his hip joints are sore and painful. Denies oculobulbar symptoms, no dysphagia, no speech changes, no diplopia or ptosis. Objective: Face symmetric, EOMI, able to puff out cheeks without letting air escape, tongue movements symmetric. Able to rise up from seated position with arms crossed. Able to lift shoulders 90 degress ok but develops pain when he rises them over 90 degrees. Gait is normal-based able to walk on heels and toes without difficulty. Interval studies review: Component Latest Ref Rng AND Units 07/06/2019 Shea-1 Antibody, IgG 0 - 40 AU/mL 0 Mi-[address] Antibody Negative Negative [address]-12 Antibody Negative Negative P155/140 Antibody Negative Negative EJ Antibody Negative Negative SRP Antibody Negative Negative OJ Antibody Negative Negative SAE1 Antibody Negative Negative NXP-2 Antibody Negative Negative MDA5 Antibody Negative Negative TIF-1 gamma Antibody Negative Negative Myositis Interpretation SEE NOTE Celiac Pnl Interpretation No evidence of celiac disease. Celiac risk alleles are present. HLA-DQA1 Genotype 05, 03 HLA-DQB1 Genotype 02:01, 03:02 Celiac Risk Haplotype Negative Positive (A) IgA 78 - 391 mg/dL 200 Transglutaminase Ab, IgA <20 Units 5 Celiac Category 5 Celiac Panel Comment SEE COMMENT Palisade Free, Serum 3.30 - 19.40 mg/L 15.1 Lambda Free, Serum 5.7 - 26.3 mg/L 15.5 K/L Ratio, Serum 0.26 - 1.65 0.97 Hemoglobin A1C 4.3 - 5.6 % 5.7 (H) Estimated Average Glucose mg/dL 117 MPA Result No M protein is identified. No M protein is identified. Staff Review (MPA) Reviewed by Shaina Donohue MD ([id number]) CRP <0.9 mg/dL 0.8 CK 51 - 298 U/L 78 Aldolase 1.5 - 8.1 U/L 4.2 Vitamin D 25 Hydroxy 31.0 - 80.0 ng/mL 34.5 Component Latest Ref Rng AND Units 07/06/2019 WSR 0 - 15 mm/hr 10 Assessment: 59 year old male with a PMH: HTN, Arthritis, BPH, neuropathy, L CTS s/p decompression 06/07/19. Presenting for VV follow up regarding bilateral shoulder pains/stiffness/myalgi as and now some tenderness, swelling in his smaller joints of his bilateral hands with redness. There is a joint warm up phenomena described with symptoms worse in the morning and gradual improvement throughout the day. He is otherwise able to rise up from a seated position without the use of his arms, he is able to walk without significant difficulty, and no oculobulbar weakness. Prior EMG in June at OSH concerning for generalized PN axon loss with reported minimal myopathic appearing units in very few proximal muscles insufficient for diagnosis. CK is normal at 78, ESR normal at 10, CRP normal at 0.8 and polymyositis panel was negative. Overall presentation appears to localize more to the large and small joints rather than primary muscle disorder with normal CK and prior exam in June showed no significant muscle weakness but limited shoulder exam due to pain. Given the clinical features described, there is concern for polymyalgia rheumatica (though normal inflammatory markers would be atypical) vs non-inflammatory arthropathy and less likely primary muscle disorder/myopathy given clinical/exam findings, but could consider repeat EMG in the future for further clarification (depending on clinical course). Plan: - The impression above as well as the plan as outlined below were extensively discussed with the patient (in the company of his spouse during the distance health visit) who voiced understanding. All questions were answered to his stated satisfaction. -Consult Rheumatology re: PMR vs non-inflammatory arthropathy consideration. -Will hold off on repeat EMG for now but could consider in the future -Discussed use of Tylenol extra-strength for shoulder pain -Will plan to follow up as needed. - When available, results of the above investigations and possible further recommendations will be communicated to the patient via telephone/Datappraiset. Patient to call office if not contacted after expected testing turnaround time. To aid with communication, patients (and primary care physicians) can sign up for [employer] (or [employer]), which allows online appointment scheduling, transmission of labs results and chart notes, and secure email communication. To establish either account, visit [email or web address]. Hector Adame MD Neuromuscular Fellow Pager: [phone] In the service of Dr. Tineo ([place] Staff) [NB- note not considered final until co-signed by staff provider] Electronically signed September 08, 2019 1:55 PM [facility] STAFF: TEACHING PHYSICIAN NOTE OF PERSONAL INVOLVEMENT IN CARE INCLUDING MEDICAL DECISION MAKING I have reviewed the clinical details obtained and documented by Dr. Adame and I have participated in the condon components, including pertinent aspects of the interval history, impression and plan. I have discussed the case and management of the patient's care with Dr. Adame. I essentially agree with the assessment and plan as documented above. Edits to the note are indicated by italics. The following comments revise or confirm relevant condon components of the note. The duration of this [facility] appointment visit was 30 minutes (2:50-3:20 PM). At least 50% of this time was spent in counseling, explanation of diagnosis, planning of further management, and coordination of care. Catina Tineo MD Staff, Neuromuscular Center [facility] Electronically signed September 11, 2019 9:40 AM Primary care physician: Ghanshyam Guillory MD [facility] [place] [address] [facility] 07-21-2019 CNPN Telephone (NENMMN) NGHIA MEDINA ([id number]) 1960 M Date Time Provider Department 07/21/19 HECTOR AQUINO (DILLON) PARTHA During your visit today, we recorded the following information about you: Hector Aquino MD 07/21/2019 1:50 PM Signed Called patient home phone no answer, left voice mail with call back number to call back if he would like to discuss lab results further AND update on clinical status. Hector Adame MD Neuromuscular Fellow Pager: [phone] Allergies As of Date: 07/21/2019 (No Known Allergies) Date Reviewed: 07/06/2019 Reviewed by: Su Howe) Iamni - Fully Assessed Reason for Visit: Results [95] Prescriptions as of 07/21/2019 Sig: ALEVE PM ORAL Take by mouth. IRBESARTAN 150 MG-HYDROCHLORO* Take 1 tablet by mouth. MULTIVITAMIN-IRON 9 MG-FOLIC * Take 1 tablet by mouth. NAPROXEN SODIUM 220 MG CAPSULE Take 220 mg by mouth. COENZYME Q10 30 MG CAPSULE Take 30 mg by mouth. Problem List As Of Date 07/21/2019 Noted Resolved Myalgia [M79.10] 07/12/2019 Stiffness of joint [M25.60] 07/12/2019 Weakness [R53.1] 07/12/2019 Disturbance of skin sensation [R20.9] 07/12/2019 Concern about neurological disease without diag*07/12/2019 Encounter Status:Closed by HECTOR AQUINO MD on 07/21/19 [facility] CNPTashia 07-18-2019 CNPN Telephone (NEOKMN) NGHIA MEDINA ([id number]) 1960 M Date Time Provider Department 07/18/19 CATINA TINEO [facility] During your visit today, we recorded the following information about you: Stella Rowe 07/18/2019 5:52 PM Signed Imaging Disc received from patient. Disc uploaded and placed on physician's desk Allergies As of Date: 07/18/2019 (No Known Allergies) Date Reviewed: 07/06/2019 Reviewed by: Su Diallo - Fully Assessed Reason for Visit: IMAGING DISC [Other] Prescriptions as of 07/18/2019 Sig: ALEVE PM ORAL Take by mouth. IRBESARTAN 150 MG-HYDROCHLORO* Take 1 tablet by mouth. MULTIVITAMIN-IRON 9 MG-FOLIC * Take 1 tablet by mouth. NAPROXEN SODIUM 220 MG CAPSULE Take 220 mg by mouth. COENZYME Q10 30 MG CAPSULE Take 30 mg by mouth. Problem List As Of Date 07/18/2019 Noted Resolved Myalgia [M79.10] 07/12/2019 Stiffness of joint [M25.60] 07/12/2019 Weakness [R53.1] 07/12/2019 Disturbance of skin sensation [R20.9] 07/12/2019 Concern about neurological disease without diag*07/12/2019 Encounter Status:Closed by STELLA ROWE on 08/01/19 Normal [facility] Aldolaseon 07-06-2019 Aldolase 4.2 U/L Normal 1.5-8.1 [facility] Comment on above: Result Comment: This test was developed and its performance characteristics determined by [facility]'s Tien Olivera [facility] [place] ([facility]). It has not been cleared or approved by the FDA. [facility] is regulated under CLIA as qualified to perform high complexity testing. This test is used for clinical purposes. It should not be regarded as investigational or for research. Performed By: #### W SR, CK, CRP, VITD, ALD, HBA1C, KLFRS, IFESC, CELCMP #### [facility] [address] [phone] #### MYOSPL #### [facility] [employer] [employer] [address] [place] [address] [phone] C-Reactive Proteinon 020 CRP [Mass/Vol] 0.8 mg/dL Normal <0.9 [facility] Comment on above: Performed By: #### W SR, CK, CRP, VITD, ALD, HBA1C, KLFRS, IFESC, CELCMP #### [facility] [address] [address] #### MYOSPL #### [facility] [employer] [address] [place] [address] [phone] CKon 07-06-2019 CK [Catalytic activity/Vol] 78 U/L Normal 51-298 [facility] Comment on above: Performed By: #### W SR, CK, CRP, VITD, ALD, HBA1C, KLFRS, IFESC, CELCMP #### [facility] [employer] [address] [place], [place] [address] #### MYOSPL #### [facility] [address] [place] [address] [phone] Celiac Comp Panelon 07-06-19 Celiac Category 5 Normal [facility] Comment on above: Result Comment: (NOT E) CATEGORY DQ HAPLOTYPE RELATIVE RISK Category 7 DQ2.2 AND DQ2.5 Extremely High Category 7 DQ2.5 AND DQ2.5 Extremely High Category 6 DQ2.2 AND DQA1*05, DQB1*03:01 Very High Category 5 DQ2.2 AND DQ8 Very High Category 5 DQ2.5 AND DQ8 Very High Category 4 DQ8 AND DQ8 High Category 3 DQ2.5 AND DQA1*05, DQB1*03:01 High Category 3 DQ2.5 AND DQA1*02:01, DQB1*03:03 High Category 3 DQ2.5 AND DQA1*03, DQB1*02 High Category 3 DQ2.5 AND OTHER LOW RISK ALLELE High Category 3 DQ2.2 AND DQA1*05, DQB1*03:03 High Category 2 DQ8 AND OTHER LOW RISK ALLELE Moderate Category 1 DQ2.2 AND OTHER LOW RISK ALLELE Low Category 0 NEGATIVE FOR DQ2.2 Negative Category 0 NEGATIVE FOR DQ2.5 Negative Category 0 NEGATIVE FOR DQ8 Negative DQ2.2 = DQA1*02:01, DQB1*02:02 DQ2.5 = DQA1*05, DQB1*02:01 DQ8 = DQA1*03, DQB1*03:02 The identification of one of these HLA-DQ genotypes is not, by itself, sufficient for the diagnosis of celiac disease, since both DQ2 and DQ8 are relatively common in the general population. The strongest reported HLA associations with celiac disease include DQ2 (DQ2.5 or DQA1*05-DQB1*02:01 & DQA2.2 or DQA1*02:01-DQB1*02:02) and DQ8 (DQA1*03:01/DQB1*03:02). This test is useful for family members of celiac patients and patients with negative serology results. This testing can rule out celiac disease with high negative predictive value (NPV) of 95-100% depending on the ethnic background. In cases of an ambiguous HLA allele assignment where multiple rare alleles cannot be excluded, the most common HLA allele is reported. References: 1. Annelise Olsen, Hima J, Teofilo Carreon, et al. Cost-effective HLA typing with tagging SNPs predicts celiac disease risk haplotypes in the [place], Ukrainian and Malaysian populations. Immunogenetics. 2009 Aug;61(4):247-56. 2. Trae APARICIO. Celiac disease: dissecting a complex inflammatory disorder. Marli Rev Immunol. 2002 Jan;2(9):647-55. 3. Cayetano E, Miles REYNAGA, Gama LAWRENCE, et al. Risk of pediatric celiac disease according to HLA haplotype and country. N Engl J Med. 2014 ;371(1):42-9. This test was developed and its performance characteristics determined by [facility]. The test has not been cleared or approved by the [place] FDA. However, FDA approval was not necessary since this lab is certified under CLIA for high complexity testing. Test performed by: [facility], [address] [facility] [place] [address]. CLIA [id number]. Performed By: #### W SR, CK, CRP, VITD, ALD, HBA1C, KLFRS, IFESC, CELCMP #### [place] [address] [place] [address] #### MYOS[facility] #### [address] [address] [phone] CELIAC PANEL COMMENT SEE COMMENT Normal [facility] Comment on above: Result Comment: No s erologic evidence of current celiac disease. However, the HLA-DQ genotype of the patient is associated with increased risk of celiac disease. The identification of one of these HLA-DQ genotypes is not, by itself, sufficient for the diagnosis of celiac disease, since both DQ2 and DQ8 are relatively common in the general population. Performed By: #### W SR, CK, CRP, VITD, ALD, HBA1C, KLFRS, IFESC, CELCMP #### [facility] [address] [phone] #### MYOSPL #### [facility] [address] [place] [address] [phone] CELIAC PANEL INTRP No evidence of mook c disease. Celiac risk alleles are present. Normal [facility] Comment on above: Performed By: #### W SR, CK, CRP, VITD, ALD, HBA1C, KLFRS, IFESC, CELCMP #### [facility] [address] [phone] #### MYOSPL #### [facility] [address] [place] [address] [phone] Celiac RiskHaplotype Positive Critically abnormal Negative [facility] Comment on above: Performed By: #### W SR, CK, CRP, VITD, ALD, HBA1C, KLFRS, IFESC, CELCMP #### [place] [phone] #### MYOSPL #### [facility] [address] [place] [address] [phone] HLA-DQA1 Genotype 05, 03 Normal [facility] Comment on above: Performed By: #### W SR, CK, CRP, VITD, ALD, HBA1C, KLFRS, IFESC, CELCMP #### [facility] [address] [phone] #### MYOSPL #### [facility] [address] [place] [address] [phone] HLA-DQB1 Genotype 02:01, 03:02 Normal [facility] Comment on above: Performed By: #### W SR, CK, CRP, VITD, ALD, HBA1C, KLFRS, IFESC, CELCMP #### [facility] [address] [phone] #### MYOSPL #### [facility] [address] [place] [phone] [phone] IgA [Mass/Vol] 200 mg/dL Normal 78-391 [facility] Comment on above: Performed By: #### W SR, CK, CRP, VITD, ALD, HBA1C, KLFRS, IFESC, CELCMP #### [facility] [address] [phone] #### MYOSPL #### [facility] [address] [place] [address] [phone] Transglutaminase IgA 5 Units Normal <20 [facility] Comment on above: Result Comment: Nega tive : < 20 Units Weak Positive : 20 - 30 Units Moderate Pos to Strong Pos: >30 Units The following results were obtained with the Magic Leap QUANTA Lite h-tTG IgA CHAYA. h-tTG IgA values obtained with different manufacturers' assay methods may not be used interchangeably. The magnitude of the reported IgA levels cannot be correlated to an endpoint titer. Performed By: #### W SR, CK, CRP, VITD, ALD, HBA1C, KLFRS, IFESC, CELCMP #### [place] [phone] #### MYOSPL #### [place] [address] [phone] Hemoglobin A1con 07-06-2019 HbA1c (Bld) [Mass fraction] 5.7 % High 4.3-5.6 [facility] Comment on above: Result Comment: Amer ican Diabetes Association guidelines indicate that patients with HgbA1c in the range 5.7-6.4% are at increased risk for development of diabetes, and intervention by lifestyle modification may be beneficial. HgbA1c greater or equal to 6.5% is considered diagnostic of diabetes. Performed By: #### W SR, CK, CRP, VITD, ALD, HBA1C, KLFRS, IFESC, CELCMP #### [place] [address] [place] [address] #### MYOSPL #### [facility] [address] [place] [phone] HbA1c (Bld) [Mass fraction] 117 mg/dL Normal [facility] Comment on above: Result Comment: eAG: (Estimated average glucose) is a calculated value from HgbA1c and is customer contact representative of the average blood glucose level in the last 2-3 month period. Performed By: #### W SR, CK, CRP, VITD, ALD, HBA1C, KLFRS, IFESC, CELCMP #### [place] [address] [place] [phone] #### MYOSPL #### [address] [phone] MAIKEL Screen, Serumon 07-06-19 Protein [Mass/Vol] No M protein is identified. Normal No M protein is identified. [facility] Comment on above: Performed By: #### W SR, CK, CRP, VITD, ALD, HBA1C, KLFRS, IFESC, CELCMP #### [place] [phone] #### MYOSPL #### [address] [phone] Staff Review Reviewed by Shaina Donohue MD ([id number]) Normal [facility] Comment on above: Performed By: #### W SR, CK, CRP, VITD, ALD, HBA1C, KLFRS, IFESC, CELCMP #### [place] [address] [place] [phone] #### MYOSPL #### [address] [phone] Palisade/Mobley,Free,Seron 2019 K/L Ratio, Serum 0.97 Normal 0.26-1.65 [facility] Comment on above: Performed By: #### W SR, CK, CRP, VITD, ALD, HBA1C, KLFRS, IFESC, CELCMP #### [place] [phone] #### MYOSPL #### [facility] [address] [place] [address] [phone] Palisade, Free, Serum 15.1 mg/L Normal 3.30-19.40 [facility] Comment on above: Result Comment: Test performed by an immunoturbidimetric assay on Optilite instrument from [facility]. Immunoglobulin free light chain assay results should be interpreted in conjunction with other tests and in correlation with clinical picture. Performed By: #### W SR, CK, CRP, VITD, ALD, HBA1C, KLFRS, IFESC, CELCMP #### [place] [address] #### MYOSPL #### [address] [address] [phone] Lambda, Free, Serum 15.5 mg/L Normal 5.7-26.3 [facility] Comment on above: Result Comment: Test performed by an immunoturbidimetric assay on Optilite instrument from [facility]. Immunoglobulin free light chain assay results should be interpreted in conjunction with other tests and in correlation with clinical picture. Performed By: #### W SR, CK, CRP, VITD, ALD, HBA1C, KLFRS, IFESC, CELCMP #### [place] [address] #### MYOSPL #### [address] [address] [phone] Myositis Panelon 07-06-2019 Shea-1 Antibody, IgG 0 AU/mL Normal 0-40 [facility] Comment on above: Result Comment: (NOT E) INTERPRETIVE INFORMATION: Shea-1 Antibody, IgG 29 AU/mL or less.........Negative 30-40 AU/mL..............Equivocal 41 AU/mL or greater......Positive Performed By: #### W SR, CK, CRP, VITD, ALD, HBA1C, KLFRS, IFESC, CELCMP #### [place] [address] [place] [phone] #### MYOSPL #### [facility] [address] [place] [address] [phone] EJ Antibody Negative Normal Negative [facility] Comment on above: Performed By: #### W SR, CK, CRP, VITD, ALD, HBA1C, KLFRS, IFESC, CELCMP #### [place] [address] [place] [address] #### MYOSPL #### [facility] [address] [place] [address] [phone] MDA5 Antibody Negative Normal Negative [facility] Comment on above: Performed By: #### W SR, CK, CRP, VITD, ALD, HBA1C, KLFRS, IFESC, CELCMP #### [place] [address] #### MYOSPL #### [facility] [address] [place] [address] [phone] Mi-2 Antibody Negative Normal Negative [facility] Comment on above: Performed By: #### W SR, CK, CRP, VITD, ALD, HBA1C, KLFRS, IFESC, CELCMP #### [place] [address] #### MYOSPL #### [facility] [address] [place] [address] [phone] Myositis Interp SEE NOTE Normal [facility] Comment on above: Result Comment: (NOT E) INTERPRETIVE INFORMATION: Dermatomyositis and Polymyositis Panel If present, myositis-specific antibodies (MSA) are specific for myositis, and may be useful in establishing diagnosis as well as prognosis. MSAs are generally regarded as mutually exclusive with rare exceptions; the occurrence of two or more MSAs should be carefully evaluated in the context of patient's clinical presentation. Myositis-associated antibodies (MAA) may be found in patients with CTD, including overlap syndromes, and are generally not specific for myositis. The following table will help in identifying the association of any antibodies found as either MSAs or Otto. Antibody Specificity . . . . . . . . . . . . MSA . . . . MAA Shea-1 (histidyl-tRNA synthetase) Ab, IgG . . X PL-12 (alanyl-tRNA synthetase) Antibody . . X PL-7 (threonyl-tRNA synthetase) Antibody . . X EJ (glycyl-tRNA synthetase) Antibody . . . . X OJ (isoleucyl-tRNA synthetase) Antibody . . X SRP (Signal Recognition Particle) Ab . . . . X Mi-2 (nuclear helicase protein) Antibody . . X P155/140 Antibody . . . . . . . . . . . . . X TIF-1 gamma (155 kDA) Ab . . . . . . . . . X SAE1 (SUMO activating enzyme) Ab . . . . . . X MDA5 (CADM-140) Ab . . . . . . . . . . . . . X NXP2 (Nuclear matrix protein-2) Ab . . . . . X Test developed and characteristics determined by [employer]. See Compliance Statement D: [employer] Communication/ Performed By: #### W SR, CK, CRP, VITD, ALD, HBA1C, KLFRS, IFESC, CELCMP #### [facility] [address] [address] #### MYOSPL #### [facility] [address], [place] [id number] [phone] NXP-2 Antibody Negative Normal Negative [facility] Comment on above: Performed By: #### W SR, CK, CRP, VITD, ALD, HBA1C, KLFRS, IFESC, CELCMP #### [facility] [employer] [employer] [address] [address] #### MYOSPL #### [facility] [address] [place] [address] [phone] OJ Antibody Negative Normal Negative [facility] Comment on above: Performed By: #### W SR, CK, CRP, VITD, ALD, HBA1C, KLFRS, IFESC, CELCMP #### [place] [address] [place] [phone] #### MYOSPL #### [facility] [address] [place] [address] [phone] P155/140 Antibody Negative Normal Negative [facility] Comment on above: Result Comment: (NOT E) Performed by [facility], [address] [place] [address] [email or web address], Antonio Obando MD, Lab. Director Performed By: #### W SR, CK, CRP, VITD, ALD, HBA1C, KLFRS, IFESC, CELCMP #### [place] [phone] #### MYOSPL #### [facility] [address] [place] [address] [phone] PL-12 Antibody Negative Normal Negative [facility] Comment on above: Performed By: #### W SR, CK, CRP, VITD, ALD, HBA1C, KLFRS, IFESC, CELCMP #### [place] [phone] #### MYOSPL #### [facility] [address] [place] [address] [phone] PL-7 Antibody Negative Normal Negative [facility] Comment on above: Performed By: #### W SR, CK, CRP, VITD, ALD, HBA1C, KLFRS, IFESC, CELCMP #### [place] [phone] #### MYOSPL #### [facility] [address] [place] [address] [phone] SAE1 Antibody Negative Normal Negative [facility] Comment on above: Performed By: #### W SR, CK, CRP, VITD, ALD, HBA1C, KLFRS, IFESC, CELCMP #### [place] [phone] #### MYOSPL #### [facility] [address] [place] [address] [phone] SRP Antibody Negative Normal Negative [facility] Comment on above: Performed By: #### W SR, CK, CRP, VITD, ALD, HBA1C, KLFRS, IFESC, CELCMP #### [place] [address] #### MYOSPL #### [facility] [address] [place] [address] [phone] TIF-1 gamma Antibody Negative Normal Negative [facility] Comment on above: Performed By: #### W SR, CK, CRP, VITD, ALD, HBA1C, KLFRS, IFESC, CELCMP #### [place] [phone] #### MYOSPL #### [facility] [address] [place] [address] [phone] Sed Rate Westergrenon 2019 Sed Rate Westergren 10 mm/hr Normal 0-15 [facility] Comment on above: Performed By: #### W SR, CK, CRP, VITD, ALD, HBA1C, KLFRS, IFESC, CELCMP #### [place] [phone] #### MYOSPL #### [facility] [address] [place] [address] [phone] Vitamin D 25 Hydroxyon 07-06 Vitamin D 25 Hydroxy 34.5 ng/mL Normal 31.0-80.0 [facility] Comment on above: Result Comment: Clas sification of 25 [place] Vitamin D status: Insufficiency/Moderate Deficiency: < or = 30 ng/mL Sufficiency/Optimal Levels: 31 to 80 ng/mL Toxicity: > 100 ng/mL Test performed by chemiluminescent immunoassay. Performed By: #### W SR, CK, CRP, VITD, ALD, HBA1C, KLFRS, IFESC, CELCMP #### [place] [address] #### MYOSPL #### [facility] [address] [place] [address] [phone] MR-MR head/brain wo/w con IM PORTon 06-29-2019 MR-MR head/brain wo/w con IMPORT Images were obtained outside of [facility] [id number] Normal [facility] MR-MRI Cervical Spine w/o IM PORTon 05-30-2019 MR-MRI Cervical Spine w/o IMPORT Images were obtained outside of [facility] [id number] Normal [facility] MR-MRI Shoulder w/o Right IM PORTon 05-04-2019 MR-MRI Shoulder w/o Right IMPORT Images were obtained outside of [facility] [id number] Normal [facility] Vital Signs Date Time Vital Sign Value Performing Clinician Facility 09-11-2024 17:15-0400 Blood Pressure Location Jemal Gill [facility] 09-11-2024 17:15-0400 Body temperature 98.24 [degF] Jemal Gill [facility] 09-11-2024 17:15-0400 Diastolic blood pressure 76 mm[Hg] Jemal Gill [facility] 09-11-2024 17:15-0400 Heart rate 68 /min Jemal Gill [facility] 09-11-2024 17:15-0400 Respiratory rate 18 /min Jemal Gill [facility] 09-11-2024 17:15-0400 SaO2% (BldA) [Mass fraction] 95 % Jemal Gill [facility] 09-11-2024 17:15-0400 Systolic blood pressure 120 mm[Hg] Jemal Gill [facility] 09-01-2024 10:28-0400 Diastolic blood pressure 84 mm[Hg] Pacheco Mott MD [facility] 09-01-2024 10:28-0400 Systolic blood pressure 128 mm[Hg] Pacheco Mott MD [facility] 02-16-2024 10:09-0400 Blood Pressure Location Mercedez Lue [facility] 02-16-2024 10:09-0400 Diastolic blood pressure 74 mm[Hg] Mercedez Lue [facility] 02-16-2024 10:09-0400 Heart rate 68 /min Mercedez Lue [facility] 02-16-2024 10:09-0400 Systolic blood pressure 128 mm[Hg] Mercedez Lue [facility] 01-28-2023 13:13-0400 Blood Pressure Location Mercedez Lue [facility] 01-28-2023 13:13-0400 Diastolic blood pressure 87 mm[Hg] Mercedez Lue [facility] 01-28-2023 13:13-0400 Heart rate 61 /min Mercedez Lue [facility] 01-28-2023 13:13-0400 Systolic blood pressure 135 mm[Hg] Mercedez Lue [facility] 05-02-2022 11:45-0500 Body height 193.04 cm Gina Pino Other [facility] 05-02-2022 11:45-0500 Body mass index (BMI) [Ratio] 29.21 kg/m2 Gina Pino Other [facility] 05-02-2022 11:45-0500 Body temperature 98.4 [degF] Gina Pino Other [facility] 05-02-2022 11:45-0500 Body weight 108.86 kg Gina Pino Other [facility] 05-02-2022 11:45-0500 Diastolic blood pressure 106 mm[Hg] Gina Pino Other [facility] 05-02-2022 11:45-0500 SaO2% (BldA) [Mass fraction] 98 % Gina Pino Other [facility] 05-02-2022 11:45-0500 Systolic blood pressure 155 mm[Hg] Gina Pino Other [facility] 08-20-2021 09:07-0400 Blood Pressure Location [facility]cedez Lue [facility] 08-20-2021 09:07-0400 Diastolic blood pressure 86 mm[Hg] Mercedez Lue [facility] 08-20-2021 09:07-0400 Heart rate 79 /min Mercedez Lue [facility] 08-20-2021 09:07-0400 Systolic blood pressure 137 mm[Hg] [facility]ced[facility] Lue [facility] [place] Encounters Encounter Date Encounter Type Care Provider Facility Start: 09-11-2024 End: 09-11-2024 ambulatory Jemal Gill Facility:[facility] Start: 09-11-2024 End: 09-11-2024 Patient encounter procedure Jemal Gill [facility] Start: 09-01-2024 End: 09-01-2024 Office outpatient new 30 minutes Pacheco Al Shweiki Work Phone: [facility] Start: 09-01-2024 ambulatory Pacheco Al Shweiki [facility] Start: 08-30-2024 End: 08-30-2024 Pacheco Al Shweiki Work Phone: [facility] Start: 08-30-2024 ambulatory Pacheco Al Shweiki [facility] Start: 08-16-2024 ambulatory Pacheco Al Shweiki [facility] Start: 07-17-2024 End: 07-17-2024 ambulatory Jemal Gill Facility:[facility] Start: 04-12-2024 End: 04-12-2024 ambulatory Tien Kelly II Facility:[facility] Start: 02-16-2024 End: 02-16-2024 ambulatory Mercedez Polanco Facility:[facility] Start: 02-16-2024 End: 02-16-2024 Patient encounter procedure [facility] Start: 01-27-2024 End: 01-27-2024 Lab Drop off Jemal Gill [facility] Start: 01-27-2024 End: 01-27-2024 ambulatory MD Jemal Gill Facility:[facility] [place] [facility] Start: 12-16-2023 End: 12-16-2023 ambulatory MD Jemal Gill Facility:[facility] [place] [facility] Start: 08-16-2023 End: 08-17-2023 ambulatory Lizabeth Nash MD Facility:[facility] [place] Start: 08-09-2023 End: 08-10-2023 ambulatory Lizabeth Nash MD Facility:[facility] [place] Start: 07-22-2023 End: 07-22-2023 ambulatory MD Jemal Gill Facility:[facility] [place] [facility] Start: 07-20-2023 End: 07-21-2023 ambulatory KIANNA Anabella WANG Not Available Start: 06-02-2023 End: 06-02-2023 ambulatory SANDRA King LENNY Not Available Start: 05-03-2023 End: 05-03-2023 ambulatory Benitez RandhawaShanique Avina Facility:[facility] Start: 05-03-2023 End: 05-03-2023 Patient encounter procedure Benitez العليd [facility] Start: 04-30-2023 End: 04-30-2023 ambulatory MD Jemal Gill Facility:[facility] Start: 04-30-2023 End: 04-30-2023 Patient encounter procedure Jemal Gill [facility] Start: 04-20-2023 End: 04-20-2023 ambulatory MD Jemal Gill Facility: [facility] Start: 04-15-2023 End: 04-15-2023 ambulatory MD Jeaml Gill Facility: [facility] [place] [facility] Start: 03-01-2023 End: 03-01-2023 ambulatory MD Jemal Gill Facility: [facility] [place] [facility] Start: 01-28-2023 End: 01-28-2023 Patient encounter procedure Mercedez Polanco [facility] Start: 10-19-2022 End: 10-19-2022 Lab Drop off Jemal Gill [facility] Start: 09-04-2022 End: 09-04-2022 Patient encounter procedure Mercedez Polanco [facility] Start: 08-28-2022 End: 08-28-[address] JACQUIE HUTCHISON . Facility:[facility] Start: 08-27-2022 End: 08-27-2022 Lab Drop off Mercedez Polanco [facility] Start: 08-27-2022 End: 08-27-2022 Patient encounter procedure Carter Padma CABALLERO [facility] Start: 08-24-2022 End: 08-24-2022 Patient encounter procedure Mercedez Polanco [facility] Start: 07-29-2022 End: 07-29-2022 Patient encounter procedure RAJ Hopkins MACHELLE [facility] Start: 05-02-2022 (URG) Urgent Care Visit [facility] Start: 05-02-2022 End: 05-02-2022 ambulatory Gina Pino Other [facility] Other Start: 02-23-2022 Encounter for genera l adult medical examination without abnormal findings DR GHANSHYAM GUILLORY . [facility] Start: 02-19-2022 End: 02-20-[address] GHANSHYAM GUILLORY . Facility:[facility] Start: 02-19-2022 End: 02-20-2022 Encounter for general adult medical examination without abnormal findings DR GHANSHYAM GUILLORY . Facility: Start: 08-20-2021 End: 08-20-2021 Patient encounter procedure Mercedez Polanco [facility] Start: 11-21-2019 End: 11-21-2019 Office outpatient visit 25 minutes Edmund Carr Work Phone: [facility] [place] Start: 09-26-2018 End: 09-26-2018 Office outpatient new 45 minutes Jayne K Orgel Work Phone: [facility] Start: 04-02-2014 End: 04-02-2014 Office outpatient visit 25 minutes Jayne K Orgel Work Phone: [facility] Start: 11-07-2012 End: 11-07-2012 Office outpatient visit 25 minutes Jayne K Orgel Work Phone: [facility] Procedures Date Procedure Procedure Detail Performing Clinician Start: 09-01-2024 End: 09-01-2024 Fundus photography w/interpretation & report Pacheco Mott Start: 09-01-2024 OCT No Charge Pacheco Mott Start: 09-01-2024 End: 09-01-2024 OCT No Charge Uni Or Bi Pacheco Amaro i, MD Start: 02-19-[address] NATE HUTCHISON . Comment on above: Performed By: #### P [facility] #### [facility] [address] [place] [address] Dr. Nikita Ferrer Start: 09-26-2018 End: 09-26-2018 Fundus photography w/interpretation & report Pacheco Mott MD Start: 11-07-2012 End: 11-07-2012 Fundus photography w/interpretation & report Pacheco Mott MD Arthroscopy of shoulder Shilo Gill Colonoscopy Mercedez Polanco Excision of part of metatarsal bone Jemal Gill Comment on above: fourth and fifth toe s of the left foot Vasectomy Jemal Gill Plan of Treatment Date Care Activity Detail Author Start: 09-07-2025 Asad Medina 1 Yr Ev/ FEB/ [facility] Work Phone: Start: 08-30-2024 Smoking effects education Tobacco cessation counseling [facility] Start: 11-21-2019 Smoking cessation education Tobacco cessation counseling [facility] Start: 09-26-2018 Smoking cessation education Tobacco cessation counseling [facility] Immunizations Immunization Date Immunization Notes Care Provider Fa cility 03-31-2024 influenza virus vaccine, unspecified formulation Jemal Gill [facility] 02-22-2023 influenza virus vaccine, unspecified formulation Jemal Gill [facility] 03-17-2022 SARS-CoV-2 (COVID-19 ) [id number] RAJRANDY CARTY [facility] 04-29-2021 influenza virus vaccine, unspecified formulation RAJ CARTY [facility] 04-22-2021 influenza virus vaccine, unspecified formulation RAJ CARTY [facility] 04-16-2021 SARS-CoV-2 (COVID-19 ) mRNA BNT-162b2 vax RAJ CARTY [facility] 2020 SARS-CoV-2 (COVID-19 ) mRNA BNT-162b2 vax RAJ CARTY [facility] Comment on above: Result Comment: 2022: [id number] 08-18-2020 SARS-CoV-2 (COVID-19 ) Ad26 vaccine, recombinant Mercedez Polanco [facility] 07-31-2020 SARS-CoV-2 (COVID-19 ) mRNA BNT-162b2 vax RAJ CARTY [facility] Comment on above: Result Comment: 2022: [id number] 07-17-2020 SARS-CoV-2 (COVID-19 ) Ad26 vaccine, recombinant [facility]ez [facility]ue [facility] 04-06-2018 influenza virus vaccine, unspecified formulation RAJ CARTY [facility] 03-17-2018 influenza, seasonal, injectable Pacheco Migel Miles MD [facility] Comment on above: Note: [facility] ; Source: Public Agency 04-18-2017 influenza virus vaccine, unspecified formulation RAJ CARTY [facility] Payers Date Payer Category Payer Self-pay 2023 Unknown 1960 Unknown [id number] 2.16.84 [id number] 1960 Unknown [id number] 2.16.84 0.1.518632.3.579.2.593 1960 Unknown [id number] 2.16.84 0.1.032671.3.579.2.1259 1960 Unknown [id number] 2.16.84 0.1.082888.3.579.2.1259 1960 Unknown [id number] 2.16.84 0.1.366440.3.579.2.1259 1960 Unknown [id number] 2.16. 840.1.892346.3.579.2.196 1960 Unknown [id number] 2.16. 840.1.678935.3.579.2.196 1960 Unknown [id number] 2.16.8 40.1.461443.3.579.2.727 1960 Unknown [id number] 2.16.8 40.1.388021.3.579.2.727 1960 Unknown [id number] 2.16.8 40.1.506349.3.579.2.72 1960 Unknown [id number] 2.16.8 40.1.737999.3.579.2.727 1960 Unknown [id number] 2.16.8 40.1.824348.3.579.2.72 1960 Unknown [id number] 2.16.8 40.1.782993.3.579.2.727 1960 Unknown [id number] 2.16.8 40.1.514552.3.579.2.727 1960 Unknown [id number] 2.16.8 40.1.098601.3.579.2.727 1960 Unknown [id number] 2.16.8 40.1.515452.3.579.2.727 1960 Unknown [id number] 2.16.8 40.1.492399.3.579.2.727 1960 Unknown [id number] 2.16.84 0.1.729245.3.579.2.134 1960 Unknown [id number] 2.16.84 0.1.779213.3.579.2.134 1960 Unknown [id number] 2.16.84 0.1.949281.3.579.2.134 1960 Unknown [id number] 2.16.8 40.1.133999.3.579.2.727 1960 Unknown [id number] 2.16.8 40.1.952601.3.579.2.727 1959 [facility] [id number] 2.16.840.1.584042.19 Unknown [id number] 2.16.8 40.1.993624.3.579.2.531 Social History Date Type Detail Facility Start: 03-12-2021 End: 09-11-2024 Tobacco smoking status Ex-smoker (finding) [facility] Sex Assigned At Male [facility] Tobacco smoking status Never [facility] Sexual Orientation [facility] Start: 06-12-2016 Sex Male (finding) [facility] Start: 08-30-2024 End: 09-01-2024 Tobacco smoking status NHIS Unknown if ever smoked [facility] Start: 08-30-2024 Alcohol intake Alcohol Use Details [facility] [employer] [facility] Start: 08-30-2024 Tobacco use and exposure Smoking Tobacco Use Details [facility] Sex Assigned At Male [facility] Work Phone: Start: 09-01-2024 Alcohol intake (observable entity) Alcohol Use Details [facility] Start: 09-01-2024 Health-related behavior (observable entity) Caffeine Use Details [facility] NEGATED: Highlighted rowStart: 08-30-2024 History of tobacco use Ex-cigarette smoker [facility] Functional Status Date Assessment Result Facility 09-11-2024 Functional Status N/A [facility] 02-16-2024 Functional Status N/A [facility] 01-28-2023 Functional Status N/A [facility] 08-17-2022 Functional Status N/A [facility] 07-29-2022 Functional Status N/A [facility] Clinical Notes 08-20-2021 to 09-01-2024 Note Date & Type Note Facility 09-01-2024 Evaluation note Type assessment Age-related nuclear cataract, bi lateral Apr-18-2025 impression Age-related nuclear cataract, bilateral: H25.13. OU. Condition: mild assessment Glaucoma suspect, both eyes impression Glaucoma suspect, both eyes: H40 .003. 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 Patient states that since he was younger he had some images done by his regular eye doctor. After the pictures, the eye doctor referred him back to retina, for a suspicious lesion in his right eye. changes in retinal v ascular appearance The 59 year old male presents for changes in retinal vascular appearance in the left eye. stable vision The patient repo rts stable vision in both eyes since last visit 1 year ago. It occurs constantly. It affects both near and distance vision. The symptom is all of the time. In addition, the condition is associated with daily activities and chores. Patient denies flashes and floaters. stable vision The patient repo rts stable vision in both eyes since his last eye exam 2 years ago. It occurs all the time. It affects both near and far vision. The symptom is constant. In addition, the condition is associated with daily activity and chores. Patient denies flashes and floaters. Patient went to get new safety glasses but had no visual complaints. Patient reports he has not taken blood pressure medication in years because he lost weight and exercises. retinal evaluation The 58 year o ld male referred by Dr. Herring for a retinal evaluation in both eyes. 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 BP 1 40/98 good, stable vision since last s een The patient reports good, stable vision since last seen in the right eye and left eye. It affects both near and far vision. The symptom is constant. It occurs all the time. The condition is stable. benign neoplasm The 53 Year old male presents for evaluation of benign neoplasm in the left eye. 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 Related to Peripheral scars of retina - Will continue to monitor. Rela negin to Peripheral scars of retina - Will continue to m onitor. Advised patient to call immediately with any changes in vision. Related to Benign neoplasm of choroid - Will continue to monitor. Rela negin to Secondary pigmentary degeneration of retina - Advised patient to keep all follow up appointments with Dr. Herring. Related to Senile nuclear sclerosis - Will continue to monitor. Rela negin to Changes in vascular appearance of retina Benign neoplasm of c horoid OS Condition: established, stable. - Will continue to monitor. Advised patient to call immediately with any changes in vision. 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 - Will continue to monitor. Related to Peripheral scars of retina - Return in 1 year w benjamin Robert for follow up exam. 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 - Will continue to monitor. 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 - Advised patient to keep all follow up appointments with Dr. Herring. Related to Senile nuclear sclerosis Changes in vascular appearance of retina OS Condition: established, stable. - Will continue to monitor. Related to Changes in vascular appearance of retina [facility] Work Phone: 1(370) 563-676903-03-2025 NotePatient Education Cardiovascular Hypertension, Adult High blood pressure (hypertension) is when the force of blood pumping through the arteries is too strong. The arteries are the blood vessels that carry blood from the heart throughout the body. Hypertension forces the heart to work harder to pump blood and may cause arteries to become narrow or stiff. Untreated or uncontrolled hypertension can lead to a heart attack, heart failure, a stroke, kidney disease, and other problems. A blood pressure reading consists of a higher number over a lower number. Ideally, your blood pressure should be below 120/80. The first ( top ) number is called the systolic pressure. It is a measure of the pressure in your arteries as your heart beats. The second ( bottom ) number is called the diastolic pressure. It is a measure of the pressure in your arteries as the heart relaxes. What are the causes? The exact cause of this condition is not known. There are some conditions that result in high bloodpressure. What increases the risk? Certain factors may make you more likely to develop high blood pressure. Some of these risk factorsare under your control, including: ??? Smoking. ??? Not getting enough exercise or physical activity. ??? Being overweight. ??? Having too much fat, sugar, calories, or salt (sodium) in your diet. ??? Drinking too much alcohol. Other risk factors include: ??? Having a personal history of heart disease, diabetes, high cholesterol, or kidney disease. ??? Stress. ??? Having a family history of high blood pressure and high cholesterol. ??? Having obstructive sleep apnea. ??? Age. The risk increases with age. What are the signs or symptoms? High blood pressure may not cause symptoms. Very high blood pressure (hypertensive crisis) may cause: ??? Headache. ??? Fast or irregular heartbeats (palpitations). ??? Shortness of breath. ??? Nosebleed. ??? Nausea and vomiting. ??? Vision changes. ??? Severe chest pain, dizziness, and seizures. How is this diagnosed? This condition is diagnosed by measuring your blood pressure while you are seated, with your arm resting on a flat surface, your legs uncrossed, and your feet flat on the floor. The cuff of the bloodpressure monitor will be placed directly against the skin of your upper arm at the level of your heart. Blood pressure should be measured at least twice using the same arm. Certain conditions can cause a difference in blood pressure between your right and left arms. If you have a high blood pressure reading during one visit or you have normal blood pressure with other risk factors, you may be asked to: ??? Return on a different day to have your blood pressure checked again. ??? Monitor your blood pressure at home for 1 week or longer. If you are diagnosed with hypertension, you may have other blood or imaging tests to help your health care provider understand your overall risk for other conditions. How is this treated? This condition is treated by making healthy lifestyle changes, such as eating healthy foods, exercising more, and reducing your alcohol intake. You may be referred for counseling on a healthy diet and physical activity. Your health care provider may prescribe medicine if lifestyle changes are not enough to get your blood pressure under control and if: ??? Your systolic blood pressure is above 130. ??? Your diastolic blood pressure is above 80. Your personal target blood pressure may vary depending on your medical conditions, your age, and other factors. Follow these instructions at home: Eating and drinking ??? Eat a diet that is high in fiber and potassium, and low in sodium, added sugar, and fat. An example of this eating plan is called the DASH diet. DASH stands for Dietary Approaches to Stop Hypertension. To eat this way: ? Eat plenty of fresh fruits and vegetables. Try to fill one half of your plate at each meal with fruits and vegetables. ? Eat whole grains, such as whole-wheat pasta, brown rice, or whole-grain bread. Fill about one fourth of your plate with whole grains. ? Eat or drink low-fat dairy products, such as skim milk or low-fat yogurt. ? Avoid fatty cuts of meat, processed or cured meats, and poultry with skin. Fill about one fourth of your plate with lean proteins, such as fish, chicken without skin, beans, eggs, or tofu. ? Avoid pre-made and processed foods. These tend to be higher in sodium, added sugar, and fat. ??? Reduce your daily sodium intake. Many people with hypertension should eat less than 1,500 mg ofsodium a day. ??? Do not drink alcohol if: ? Your health care provider tells you not to drink. ? You are , may be , or are planning to become . ??? If you drink alcohol: ? Limit how much you have to: ? 0?1 drink a day for women. ? 0?2 drinks a day for men. ? Know how much alcohol is in your drink. In the [place] one drink equals one 12 oz bottle (more content not included)...[facility]10-02-2024 Hospital Discharge instructions Patient Education 02/16/2024 10:23:43 Overactive Bladder, Adult Overactive Bladder, Adult Overactive bladder is a condition in which a person has a sudden and frequent need to urinate. A person might also leak urine if he or she cannot get to the bathroom fast enough (urinary incontinence). Sometimes, symptoms can interfere with work or social activities. What are the causes? Overactive bladder is associated with poor nerve signals between your bladder and your brain. Your bladder may get the signal to empty before it is full. You may also have very sensitive muscles thatmake your bladder squeeze too soon. This condition may also be caused by other factors, such as: Medical conditions: ?Urinary tract infection. ?Infection of nearby tissues. ?Prostate enlargement. ?Bladder stones, inflammation, or tumors. ?Diabetes. ?Muscle or nerve weakness, especially from these conditions: ?A spinal cord injury. ?Stroke. ?Multiple sclerosis. ?Parkinson's disease. Other causes: ?Surgery on the uterus or urethra. ?Drinking too much caffeine or alcohol. ?Certain medicines, especially those that eliminate extra fluid in the body (diuretics). ?Constipation. What increases the risk? You may be at greater risk for overactive bladder if you: Are an older adult. Smoke. Are going through menopause. Have prostate problems. Have a neurological disease, such as stroke, dementia, Parkinson's disease, or multiple sclerosis (MS). Eat or drink alcohol, spicy food, caffeine, and other things that irritate the bladder. Are overweight or obese. What are the signs or symptoms? Symptoms of this condition include a sudden, strong urge to urinate. Other symptoms include: Leaking urine. Urinating 8 or more times a day. Waking up to urinate 2 or more times overnight. How is this diagnosed? This condition may be diagnosed based on: Your symptoms and medical history. A physical exam. Blood or urine tests to check for possible causes, such as infection. You may also need to see a health care provider who specializes in urinary tract problems. This is called a urologist. How is this treated? Treatment for overactive bladder depends on the cause of your condition and whether it is mild or severe. Treatment may include: Bladder training, such as: ?Learning to control the urge to urinate by following a schedule to urinate at regular intervals. ?Doing Kegel exercises to strengthen the pelvic floor muscles that support your bladder. Special devices, such as: ?Biofeedback. This uses sensors to help you become aware of your body's signals. ?Electrical stimulation. This uses electrodes placed inside the body (implanted) or outside the body. These electrodes send gentle pulses of electricity to strengthen the nerves or muscles that control the bladder. ?Women may use a plastic device, called a pessary, that fits into the vagina and supports the bladder. Medicines, such as: ?Antibiotics to treat bladder infection. ?Antispasmodics to stop the bladder from releasing urine at the wrong time. ?Tricyclic antidepressants to relax bladder muscles. ?Injections of botulinum toxin type A directly into the bladder tissue to relax bladder muscles. Surgery, such as: ?A device may be implanted to help manage the nerve signals that control urination. ?An electrode may be implanted to stimulate electrical signals in the bladder. ?A procedure may be done to change the shape of the bladder. This is done only in very severe cases. Follow these instructions at home: Eating and drinking Make diet or lifestyle changes recommended by your health care provider. These may include: ?Drinking fluids throughout the day and not only with meals. ?Cutting down on caffeine or alcohol. ?Eating a healthy and balanced diet to prevent constipation. This may include: ?Choosing foods that are high in fiber, such as beans, whole grains, and fresh fruits and vegetables. ?Limiting foods that are high in fat and processed sugars, such as fried and sweet foods. Lifestyle Lose weight if needed. Do not use any products that contain nicotine or tobacco. These include cigarettes, chewing tobacco, and vaping devices, such as e-cigarettes. If you need help quitting, ask your health care provider. General instructions Take sajo-tcg-urjgunn and prescription medicines only as told by your health care provider. If you were prescribed an antibiotic medicine, take it as told by your health care provider. Do notstop taking the antibiotic even if you start to feel better. Use any implants or pessary as told by your health care provider. If needed, wear pads to absorb urine leakage. Keep a log to track how much and when you drink, and when you need to urinate. This will help your health care provider monitor your condition. Keep all follow-up visits. This is important. Contact a health care provider if: You have a fever or chills. Your symptoms do not get better with treatment. Your pain and discomfort get worse. You have more frequent urges to urinate. Get help right away if: You are not able to control your bladder. Summary Overactive bladder refers to a condition in which a person has a sudden and frequent need to urinate. Several conditions may lead to an overactive bladder. Treatment for overactive bladder depends on the cause and severity of your condition. Making lifestyle changes, doing Kegel exercises, keeping a log, and taking medicines can help with this condition. This information is not intended to replace advice given to you by your health care provider. Make sure you discuss any questions you have with your health care provider. Document Revised: 01/20/2021 Document Reviewed: 01/20/2021 [employer] Patient Education 2023 [employer]. Follow Up Care 05/18/2023 11:40:11 With:Collin JEROME, LISA Elder, URO Address: [address] [place] [address] [phone] When: only if needed [facility] 10-02-2024 NotePatient Education Obstetrics and Gynecology Overactive Bladder, Adult Overactive bladder is a condition in which a person has a sudden and frequent need to urinate. A person might also leak urine if he or she cannot get to the bathroom fast enough (urinary incontinence). Sometimes, symptoms can interfere with work or social activities. What are the causes? Overactive bladder is associated with poor nerve signals between your bladder and your brain. Your bladder may get the signal to empty before it is full. You may also have very sensitive muscles thatmake your bladder squeeze too soon. This condition may also be caused by other factors, such as: ? Medical conditions: ? Urinary tract infection. ? Infection of nearby tissues. ? Prostate enlargement. ? Bladder stones, inflammation, or tumors. ? Diabetes. ? Muscle or nerve weakness, especially from these conditions: ? A spinal cord injury. ? Stroke. ? Multiple sclerosis. ? Parkinson's disease. ? Other causes: ? Surgery on the uterus or urethra. ? Drinking too much caffeine or alcohol. ? Certain medicines, especially those that eliminate extra fluid in the body (diuretics). ? Constipation. What increases the risk? You may be at greater risk for overactive bladder if you: ? Are an older adult. ? Smoke. ? Are going through menopause. ? Have prostate problems. ? Have a neurological disease, such as stroke, dementia, Parkinson's disease, or multiple sclerosis(MS). ? Eat or drink alcohol, spicy food, caffeine, and other things that irritate the bladder. ? Are overweight or obese. What are the signs or symptoms? Symptoms of this condition include a sudden, strong urge to urinate. Other symptoms include: ? Leaking urine. ? Urinating 8 or more times a day. ? Waking up to urinate 2 or more times overnight. How is this diagnosed? This condition may be diagnosed based on: ? Your symptoms and medical history. ? A physical exam. ? Blood or urine tests to check for possible causes, such as infection. You may also need to see a health care provider who specializes in urinary tract problems. This is called a urologist. How is this treated? Treatment for overactive bladder depends on the cause of your condition and whether it is mild or severe. Treatment may include: ? Bladder training, such as: ? Learning to control the urge to urinate by following a schedule to urinate at regular intervals. ? Doing Kegel exercises to strengthen the pelvic floor muscles that support your bladder. ? Special devices, such as: ? Biofeedback. This uses sensors to help you become aware of your body's signals. ? Electrical stimulation. This uses electrodes placed inside the body (implanted) or outside the body. These electrodes send gentle pulses of electricity to strengthen the nerves or muscles that control the bladder. ? Women may use a plastic device, called a pessary, that fits into the vagina and supports the bladder. ? Medicines, such as: ? Antibiotics to treat bladder infection. ? Antispasmodics to stop the bladder from releasing urine at the wrong time. ? Tricyclic antidepressants to relax bladder muscles. ? Injections of botulinum toxin type A directly into the bladder tissue to relax bladder muscles. ? Surgery, such as: ? A device may be implanted to help manage the nerve signals that control urination. ? An electrode may be implanted to stimulate electrical signals in the bladder. ? A procedure may be done to change the shape of the bladder. This is done only in very severe cases. Follow these instructions at home: Eating and drinking ? Make diet or lifestyle changes recommended by your health care provider. These may include: ? Drinking fluids throughout the day and not only with meals. ? Cutting down on caffeine or alcohol. ? Eating a healthy and balanced diet to prevent constipation. This may include: ? Choosing foods that are high in fiber, such as beans, whole grains, and fresh fruits and vegetables. ? Limiting foods that are high in fat and processed sugars, such as fried and sweet foods. Lifestyle ? Lose weight if needed. ? Do not use any products that contain nicotine or tobacco. These include cigarettes, chewing tobacco, and vaping devices, such as e-cigarettes. If you need help quitting, ask your health care provider. General instructions ? Take ihms-kns-nzhwttu and prescription medicines only as told by your health care provider. ? If you were prescribed an antibiotic medicine, take it as told by your health care provider. Do not stop taking the antibiotic even if you start to feel better. ? Use any implants or pessary as told by your health care provider. ? If needed, wear pads to absorb urine leakage. ? Keep a log to track how much and when you drink, and when you need to urinate. This will help your health care (more content not included)...[facility]09-12-2024 NotePatient Education Nutrition BMI for Adults Body mass index (BMI) is a number found using a person's weight and height. BMI can help tell how much of a person's weight is made up of fat. BMI does not measure body fat directly. It is used instead of tests that directly measure body fat, which can be difficult and expensive. What are BMI measurements used for? BMI is useful to: ? Find out if your weight puts you at higher risk for medical problems. ? Help recommend changes, such as in diet and exercise. This can help you reach a healthy weight. BMI screening can be done again to see if these changes are working. How is BMI calculated? Your height and weight are measured. The BMI is found from those numbers. This can be done with U.S. or metric measurements. Note that charts and online BMI calculators are available to help you findyour BMI quickly and easily without doing these calculations. To calculate your BMI in U.S. measurements: 1. Measure your weight in pounds (lb). 2. Multiply the number of pounds by 703. ? So, for an adult who weighs 150 lb, multiply that number by 703: 150 x 703, which equals 105,450. 3. Measure your height in inches. Then multiply that number by itself to get a measurement called inches squared. ? So, for an adult who is 70 inches tall, the inches squared measurement is 70 inches x 70 inches, which equals 4,900 inches squared. 4. Divide the total from step 2 (number of lb x 703) by the total from step 3 (inches squared): 105,450 ? 4,900 = 21.5. This is your BMI. To calculate your BMI in metric measurements: 1. Measure your weight in kilograms (kg). ? For this example, the weight is 70 kg. 2. Measure your height in meters (m). Then multiply that number by itself to get a measurement called meters squared. ? So, for an adult who is 1.75 m tall, the meters squared measurement is 1.75 m x 1.75 m, which equals 3.1 meters squared. 3. Divide the number of kilograms (your weight) by the meters squared number. In this example: 70 ?3.1 = 22.6. This is your BMI. What do the results mean? BMI charts are used to see if you are underweight, normal weight, overweight, or obese. The following guidelines will be used: ? Underweight: BMI less than 18.5. ? Normal weight: BMI between 18.5 and 24.9. ? Overweight: BMI between 25 and 29.9. ? Obese: BMI of 30 or above. BMI is a tool and cannot diagnose a condition. Talk with your health care provider about what your BMI means for you. Keep these notes in mind: ? Weight includes fat and muscle. Someone with a muscular build, such as an athlete, may have a BMIthat is higher than 24.9. In cases like these, BMI is not a correct measure of body fat. ? If you have a BMI of 25 or higher, your provider may need to do more testing to find out if excess body fat is the cause. ? BMI is measured the same way for males and females. Females usually have more body fat than malesof the same height and weight. Where to find more information For more information about BMI, including tools to quickly find your BMI, go to: ? Centers for Disease Control and Prevention: cdc.gov ? [place] Heart Association: heart.org ? National Heart, Lung, and Blood [place]: nhlbi.nih.gov This information is not intended to replace advice given to you by your health care provider. Make sure you discuss any questions you have with your health care provider. Document Revised: 01/21/2023 Document Reviewed: 01/14/2023 [employer] Patient Education ? 2023 [employer] 12-16-2023 NotePatient Education Nutrition BMI for Adults What is BMI? Body mass index (BMI) is a number that is calculated from a person's weight and height. BMI can help estimate how much of a person's weight is composed of fat. BMI does not measure body fat directly.Rather, it is an alternative to procedures that directly measure body fat, which can be difficult and expensive. BMI can help identify people who may be at higher risk for certain medical problems. What are BMI measurements used for? BMI is used as a screening tool to identify possible weight problems. It helps determine whether a person is obese, overweight, a healthy weight, or underweight. BMI is useful for: ? Identifying a weight problem that may be related to a medical condition or may increase the risk for medical problems. ? Promoting changes, such as changes in diet and exercise, to help reach a healthy weight. BMI screening can be repeated to see if these changes are working. How is BMI calculated? BMI involves measuring your weight in relation to your height. Both height and weight are measured,and the BMI is calculated from those numbers. This can be done either in Spanish (U.S.) or metric measurements. Note that charts and online BMI calculators are available to help you find your BMI quickly and easily without having to do these calculations yourself. To calculate your BMI in Spanish (U.S.) measurements: 1. Measure your weight in pounds (lb). 2. Multiply the number of pounds by 703. ? For example, for a person who weighs 180 lb, multiply that number by 703, which equals 126,540. 3. Measure your height in inches. Then multiply that number by itself to get a measurement called inches squared. ? For example, for a person who is 70 inches tall, the inches squared measurement is 70 inches x 70 inches, which equals 4,900 inches squared. 4. Divide the total from step 2 (number of lb x 703) by the total from step 3 (inches squared): 126,540 ? 4,900 = 25.8. This is your BMI. To calculate your BMI in metric measurements: 1. Measure your weight in kilograms (kg). 2. Measure your height in meters (m). Then multiply that number by itself to get a measurement called meters squared. ? For example, for a person who is 1.75 m tall, the meters squared measurement is 1.75 m x 1.75 m, which is equal to 3.1 meters squared. 3. Divide the number of kilograms (your weight) by the meters squared number. In this example: 70 ?3.1 = 22.6. This is your BMI. What do the results mean? BMI charts are used to identify whether you are underweight, normal weight, overweight, or obese. The following guidelines will be used: ? Underweight: BMI less than 18.5. ? Normal weight: BMI between 18.5 and 24.9. ? Overweight: BMI between 25 and 29.9. ? Obese: BMI of 30 or above. Keep these notes in mind: ? Weight includes both fat and muscle, so someone with a muscular build, such as an athlete, may have a BMI that is higher than 24.9. In cases like these, BMI is not an accurate measure of body fat. ? To determine if excess body fat is the cause of a BMI of 25 or higher, further assessments may need to be done by a health care provider. ? BMI is usually interpreted in the same way for men and women. Where to find more information For more information about BMI, including tools to quickly calculate your BMI, go to these websites: ? Centers for Disease Control and Prevention: www.cdc.gov ? [place] Heart Association: www.heart.org ? National Heart, Lung, and Blood [place]: www.nhlbi.nih.gov Summary ? Body mass index (BMI) is a number that is calculated from a person's weight and height. ? BMI may help estimate how much of a person's weight is composed of fat. BMI can help identify those who may be at higher risk for certain medical problems. ? BMI can be measured using Spanish measurements or metric measurements. ? BMI charts are used to identify whether you are underweight, normal weight, overweight, or obese. This information is not intended to replace advice given to you by your health care provider. Make sure you discuss any questions you have with your health care provider. Document Revised: 01/24/2020 Document Reviewed: 12/01/2019 [employer] Patient Education ? 2022 [employer].[facility] 01-28-2023 Hospital Discharge instructions Patient Education 01/28/2023 13:32:35 Overactive Bladder, Adult Overactive Bladder, Adult Overactive bladder is a condition in which a person has a sudden and frequent need to urinate. A person might also leak urine if he or she cannot get to the bathroom fast enough (urinary incontinence). Sometimes, symptoms can interfere with work or social activities. What are the causes? Overactive bladder is associated with poor nerve signals between your bladder and your brain. Your bladder may get the signal to empty before it is full. You may also have very sensitive muscles thatmake your bladder squeeze too soon. This condition may also be caused by other factors, such as: Medical conditions: ?Urinary tract infection. ?Infection of nearby tissues. ?Prostate enlargement. ?Bladder stones, inflammation, or tumors. ?Diabetes. ?Muscle or nerve weakness, especially from these conditions: ?A spinal cord injury. ?Stroke. ?Multiple sclerosis. ?Parkinson's disease. Other causes: ?Surgery on the uterus or urethra. ?Drinking too much caffeine or alcohol. ?Certain medicines, especially those that eliminate extra fluid in the body (diuretics). ?Constipation. What increases the risk? You may be at greater risk for overactive bladder if you: Are an older adult. Smoke. Are going through menopause. Have prostate problems. Have a neurological disease, such as stroke, dementia, Parkinson's disease, or multiple sclerosis (MS). Eat or drink alcohol, spicy food, caffeine, and other things that irritate the bladder. Are overweight or obese. What are the signs or symptoms? Symptoms of this condition include a sudden, strong urge to urinate. Other symptoms include: Leaking urine. Urinating 8 or more times a day. Waking up to urinate 2 or more times overnight. How is this diagnosed? This condition may be diagnosed based on: Your symptoms and medical history. A physical exam. Blood or urine tests to check for possible causes, such as infection. You may also need to see a health care provider who specializes in urinary tract problems. This is called a urologist. How is this treated? Treatment for overactive bladder depends on the cause of your condition and whether it is mild or severe. Treatment may include: Bladder training, such as: ?Learning to control the urge to urinate by following a schedule to urinate at regular intervals. ?Doing Kegel exercises to strengthen the pelvic floor muscles that support your bladder. Special devices, such as: ?Biofeedback. This uses sensors to help you become aware of your body's signals. ?Electrical stimulation. This uses electrodes placed inside the body (implanted) or outside the body. These electrodes send gentle pulses of electricity to strengthen the nerves or muscles that control the bladder. ?Women may use a plastic device, called a pessary, that fits into the vagina and supports the bladder. Medicines, such as: ?Antibiotics to treat bladder infection. ?Antispasmodics to stop the bladder from releasing urine at the wrong time. ?Tricyclic antidepressants to relax bladder muscles. ?Injections of botulinum toxin type A directly into the bladder tissue to relax bladder muscles. Surgery, such as: ?A device may be implanted to help manage the nerve signals that control urination. ?An electrode may be implanted to stimulate electrical signals in the bladder. ?A procedure may be done to change the shape of the bladder. This is done only in very severe cases. Follow these instructions at home: Eating and drinking Make diet or lifestyle changes recommended by your health care provider. These may include: ?Drinking fluids throughout the day and not only with meals. ?Cutting down on caffeine or alcohol. ?Eating a healthy and balanced diet to prevent constipation. This may include: ?Choosing foods that are high in fiber, such as beans, whole grains, and fresh fruits and vegetables. ?Limiting foods that are high in fat and processed sugars, such as fried and sweet foods. Lifestyle Lose weight if needed. Do not use any products that contain nicotine or tobacco. These include cigarettes, chewing tobacco, and vaping devices, such as e-cigarettes. If you need help quitting, ask your health care provider. General instructions Take jevj-ozi-mtdskcc and prescription medicines only as told by your health care provider. If you were prescribed an antibiotic medicine, take it as told by your health care provider. Do notstop taking the antibiotic even if you start to feel better. Use any implants or pessary as told by your health care provider. If needed, wear pads to absorb urine leakage. Keep a log to track how much and when you drink, and when you need to urinate. This will help your health care provider monitor your condition. Keep all follow-up visits. This is important. Contact a health care provider if: You have a fever or chills. Your symptoms do not get better with treatment. Your pain and discomfort get worse. You have more frequent urges to urinate. Get help right away if: You are not able to control your bladder. Summary Overactive bladder refers to a condition in which a person has a sudden and frequent need to urinate. Several conditions may lead to an overactive bladder. Treatment for overactive bladder depends on the cause and severity of your condition. Making lifestyle changes, doing Kegel exercises, keeping a log, and taking medicines can help with this condition. This information is not intended to replace advice given to you by your health care provider. Make sure you discuss any questions you have with your health care provider. Document Revised: 01/20/2021 Document Reviewed: 01/20/2021 [employer] Patient Education 2022 [employer]. Follow Up Care 10/26/2022 12:41:50 With:Collin JEROME, Mercedez Quiroz, URL, URO Address: When: Unknown [facility] [place] 04-10-2023 Evaluation + Plan noteExtracted from: Title: Clinic Note HOPD Author:Mercedez Polanco MD Date:08/24/22 Impression and Plan Assessment and Plan: Diagnosis: Urinary frequency (AED90-DR R35.0, Discharge, Medical), Urinary urgency (PBP06-HH R39.15, Discharge, Medical), Post-void dribbling (PQL98-ZC N39.43, Discharge, Medical), Benign prostatic hyperplasia (BPH) with urinary urgency (HNX86-TB N40.1, Discharge, Medical), Nocturia (WBT87-MJ R35.1, Discharge, Medical). 62 year old male with long standing OAB sx of urinary urgency, frequency since younger years, worse in the past 6 months with nocturia x 2 and post void dribbling. 1. BPH with urinary urgency, frequency, post void dribbling PSA 01/2021 - 0.96 02/19/2022 - 1.01 ([facility]) LESLIE benign PVR 117 ml last visit No relief or change in sx with tamsulosin. No longer taking it. -Cysto today with mild BPH, not significantly obstructing but significantly elevated bladder neck with trabeculated bladder. Volume 20 cc. Thorough discussion regarding risks/benefits of mgmt options. - Will proceed with Urocuff for further evaluation of bladder function (UDS not available) given mixed symptoms - Start oxybutynin 5 mg daily for OAB sx, risks/benefits discussed. Sent to pharmacy on file. Risk of retention discussed since prior PVR 117ml. Knows to stop med if difficulty voiding - Follow up after Urocuff and med trial for review and discuss Urolift vs TUIP. He strongly desires to preserve forward ejaculation/sexual function. 2. Nocturia - timed voiding, avoid fluids prior to bedtime, trial of oxybutynin per #1. Future Appointments Appointment Date:09/04/2022 08:30:00 AM Scheduled Provider: Location:[facility] [place] Appointment Type:URO Nurse Visit [facility]04-10-2023 Hospital Discharge instructions Patient Education 08/24/2022 09:22:41 EU - Cystoscopy Discharge Instructions (CUSTOM) Cystoscopy Voiding after the procedure: there may be some pain, burning, urgency, frequency and blood tinged urine following the procedure. These symptoms usually resolve within 2-5 days. Drink the amount of fluid it takes to keep the urine pink to yellow or clear in color. Drinking enough water and fluids will help to ease any discomfort after your procedure. If you are having problems that seem out of the ordinary, please call. If unable to contact your physician and you feel it is an emergency, go to the nearest emergency room or call 911 Diet you may resume your normal diet. Activity you may resume your normal activities Call if you have a fever over 100 degrees. Follow Up Care 08/11/2022 12:57:27 With:Mercedez Polanco Address: [address], [facility] [place] [address] [phone] Business (1) When: Unknown Comments:Office to schedule follow up for Urocuff and appt in the next 2-3 weeks [facility]12-17-2022 Evaluation note* Encounter Date Diagnosis Assessment Notes Treatment Notes Treatment Clinical Notes Apr, Exposure to COVID-19 virus (ICD-10 - Z20.822) Apr, COVID-19 (ICD-10 - U07.1) Today you tested positive for the COVID virus. This mean you need to follow all CDC quarantine guidelines found at coronavirus.[place].g ov. It is important to rest, increase fluids, and stay at home. Recommend contacting primary care provider and discussing best course of action if you have chronic health conditions. COVID POSITIVE education handout discharge instructions. given. May continue Paxlovid since you already started the pack and follow directions. [facility] Other 04-06-2022 Hospital Discharge instructions Patient Education 08/20/2021 09:33:15 Erectile Dysfunction Erectile Dysfunction Erectile dysfunction (ED) is the inability to get or keep an erection in order to have sexual intercourse. Erectile dysfunction may include: Inability to get an erection. Lack of enough hardness of the erection to allow penetration. Loss of the erection before sex is finished. What are the causes? This condition may be caused by: Certain medicines, such as: ?Pain relievers. ?Antihistamines. ?Antidepressants. ?Blood pressure medicines. ?Water pills (diuretics). ?Ulcer medicines. ?Muscle relaxants. ?Drugs. Excessive drinking. Psychological causes, such as: ?Anxiety. ?Depression. ?Sadness. ?Exhaustion. ?Performance fear. ?Stress. Physical causes, such as: ?Artery problems. This may include diabetes, smoking, liver disease, or atherosclerosis. ?High blood pressure. ?Hormonal problems, such as low testosterone. ?Obesity. ?Nerve problems. This may include back or pelvic injuries, diabetes mellitus, multiple sclerosis, or Parkinson disease. What are the signs or symptoms? Symptoms of this condition include: Inability to get an erection. Lack of enough hardness of the erection to allow penetration. Loss of the erection before sex is finished. Normal erections at some times, but with frequent unsatisfactory episodes. Low sexual satisfaction in either partner due to erection problems. A curved penis occurring with erection. The curve may cause pain or the penis may be too curved to allow for intercourse. Never having nighttime erections. How is this diagnosed? This condition is often diagnosed by: Performing a physical exam to find other diseases or specific problems with the penis. Asking you detailed questions about the problem. Performing blood tests to check for diabetes mellitus or to measure hormone levels. Performing other tests to check for underlying health conditions. Performing an ultrasound exam to check for scarring. Performing a test to check blood flow to the penis. Doing a sleep study at home to measure nighttime erections. How is this treated? This condition may be treated by: Medicine taken by mouth to help you achieve an erection (oral medicine). Hormone replacement therapy to replace low testosterone levels. Medicine that is injected into the penis. Your health care provider may instruct you how to give yourself these injections at home. Vacuum pump. This is a pump with a ring on it. The pump and ring are placed on the penis and used to create pressure that helps the penis become erect. Penile implant surgery. In this procedure, you may receive: ?An inflatable implant. This consists of cylinders, a pump, and a reservoir. The cylinders can be inflated with a fluid that helps to create an erection, and they can be deflated after intercourse. ?A semi-rigid implant. This consists of two silicone rubber rods. The rods provide some rigidity. They are also flexible, so the penis can both curve downward in its normal position and become straight for sexual intercourse. Blood vessel surgery, to improve blood flow to the penis. During this procedure, a blood vessel from a different part of the body is placed into the penis to allow blood to flow around (bypass) damaged or blocked blood vessels. Lifestyle changes, such as exercising more, losing weight, and quitting smoking. Follow these instructions at home: Medicines Take wnfu-cda-eoygead and prescription medicines only as told by your health care provider. Do not increase the dosage without first discussing it with your health care provider. If you are using self-injections, perform injections as directed by your health care provider. Makesure to avoid any veins that are on the surface of the penis. After giving an injection, apply pressure to the injection site for 5 minutes. General instructions Exercise regularly, as directed by your health care provider. Work with your health care provider to lose weight, if needed. Do not use any products that contain nicotine or tobacco, such as cigarettes and e-cigarettes. If you need help quitting, ask your health care provider. Before using a vacuum pump, read the instructions that come with the pump and discuss any questionswith your health care provider. Keep all follow-up visits as told by your health care provider. This is important. Contact a health care provider if: You feel nauseous. You vomit. Get help right away if: You are taking oral or injectable medicines and you have an erection that lasts longer than 4 hours. If your health care provider is unavailable, go to the nearest emergency room for evaluation. An erection that lasts much longer than 4 hours can result in permanent damage to your penis. You have severe pain in your groin or abdomen. You develop redness or severe swelling of your penis. You have redness spreading up into your groin or lower abdomen. You are unable to urinate. You experience chest pain or a rapid heart beat (palpitations) after taking oral medicines. Summary Erectile dysfunction (ED) is the inability to get or keep an erection during sexual intercourse. This problem can usually be treated successfully. This condition is diagnosed based on a physical exam, your symptoms, and tests to determine the cause. Treatment varies depending on the cause, and may include medicines, hormone therapy, surgery, orvacuum pump. You may need follow-up visits to make sure that you are using your medicines or devices correctly. Get help right away if you are taking or injecting medicines and you have an erection that lasts longer than 4 hours. This information is not intended to replace advice given to you by your health care provider. Make sure you discuss any questions you have with your health care provider. Document Released: 04/30/2001 Document Revised: 04/15/2018 Document Reviewed: 05/19/2017 [employer] Patient Education 2020 [employer]. Follow Up Care 03/13/2021 13:56:36 With:Collin JEROME, Mercedez Quiroz, LISA, URO Address: When:02/19/2022 [facility] consult note* Clinical Note Date No Information [facility] Work Phone: Discharge summary* Clinical Note Date No Information [facility] Work Phone: Evaluation + Plan note No data available for this section [facility] evaluation + Plan note Future Appointments Appointment Date:09/04/2022 08:30:00 AM Scheduled Provider: Location:[facility] Appointment Type:URO Nurse Visit Diagnostic Tests Pending * [facility] Appointment Date:09/04/2022 08:30:00 AM Scheduled Provider: Location:[facility] Appointment Type:URO Nurse Visit [facility] evaluation + Plan note Future Appointments Appointment Date:10/19/2022 04:40:00 PM Scheduled Provider:Jemal Gill MD Location:[facility] Appointment Type:FM New Patient - Adult [facility] Evaluation + Plan note Future Appointments Appointment Date:10/23/2022 03:00:00 PM Scheduled Provider:Mercedez Polanco MD Location:[facility] Appointment Type:URO Office Visit Diagnostic Tests Pending * CBC w/ Auto Diff 10/19/22 * Comprehensive Metabolic Panel 10/19/22 * Lipid Panel 10/19/22 * TSH With T4fr Reflex [facility]ments Appointment Date:04/20/2023 05:00:00 PM Scheduled Provider:Jemal Gill MD Location:[facility] Appointment Type: Open [facility] Evaluation + Plan note Future Appointments Appointment Date:07/12/2023 05:15:00 PM Scheduled Provider:Jemal Gill MD Location:[facility] Future Appointments Appointment Date:05/03/2023 07:45:00 PM Scheduled Provider: Location:.SLEEP LAB_ Appointment Type:[facility] Sleep Study HST () Appointment Date:07/12/2023 05:15:00 PM Scheduled Provider:Jemal Gill MD Location:[facility] Future Appointments Appointment Date:02/16/2024 09:45:00 AM Scheduled Provider:Mercedez Polanco MD Location:[facility] Appointment Type:URO Office Visit [facility] Evaluation note* Type Assessment Date No Information [facility] Work Phone: History and physical note* Clinical Note Date No Information [facility] Work Phone: [facility] general Narrative - Reported* Type Description Date Medical History HTN (hypertension) Surgical History rotator cuff-right Surgical History tonsillectomy Surgical History carpal tunnel, marcia Surgical History Rt knee scope Hospitalization History pneumonia [facility] Other Hospital Discharge instructions No data available for this section [facility] progress note No data available for this section [facility] progress note* Clinical Note Date No Information [facility] Work Phone: Reason for referral (narrative)* Reason For Referral No Information [facility] Work Phone: Summary Purpose Family History Family Member Type Diagnosis Age At Onset Problem (finding) Family history of glauc chalo Problem (finding) Family history of Cance r Advance Directives Directive Yes / No Effective Date File Name No Information Chief Complaint and Reason for Visit From encounter dated '09/01/2024 10:00'. Retinal lesion (chief complaint). Description: The 64 year old male presents for New Patient evaluation of Retinal lesion in the right and left eyes. Patient states that since he was younger he had some images done by his regular eye doctor. After the pictures, the eye doctor referred him back to retina, for a suspicious lesion in his right eye. Additional Source Comments (unrecognized sect ion and content) No Status Records FoundNo Status Records FoundNo Status Records FoundNo Status Records FoundNo Status Records FoundNo Status Records FoundNo Status Records FoundNo Status Records FoundNo Status Records FoundNo Status Records FoundNo Status Records FoundNo Status Records Found INFORMATION SOURCE (unrecogn ized section and content) DATE CREATED AUTHOR 10/01/2019 [facility] DATE CREATED AUTHOR AUTHOR'S ORGANIZ ATION 04/30/2021 [facility] dical Specialist DATE CREATED AUTHOR AUTHOR'S ORGANIZ ATION 09/03/2022 [facility] DATE CREATED AUTHOR AUTHOR'S ORGANIZ ATION 07/25/2023 [facility] dical Specialists [facility] DATE CREATED AUTHOR AUTHOR'S ORGANIZ ATION 08/24/[address] [facility] DATE CREATED AUTHOR AUTHOR'S ORGANIZ ATION 01/30/2024 [facility] DATE CREATED AUTHOR AUTHOR'S ORGANIZ ATION 02/17/2024 [facility] DATE CREATED AUTHOR AUTHOR'S ORGANIZ ATION 04/15/2024 [facility] DATE CREATED AUTHOR AUTHOR'S ORGANIZ ATION 09/10/2024 [facility] DATE CREATED AUTHOR AUTHOR'S ORGANIZ ATION 09/12/2024 [facility] REASON FOR VISIT (unrecogniz ed section and content) SORE THROAT, CHILLS, STUFFY NOSE Patient Care team informatio n (unrecognized section and content) Name Effective Dates (start - stop) S tatus No Information FOR RECORDS PERTAINING TO PATIENTS WHO ARE OR HAVE BEEN ENROLLED IN A CHEMICAL DEPENDENCY/SUBSTANCEABUSE PROGRAM, SOME INFORMATION MAY BE OMITTED. This clinical summary was aggregated from multiple sources. Caution should be exercised in using it in the provision of clinical care. This summary normalizes information from multiple sources, and as a consequence, information in this document may materially change the coding, format and clinical context of patient data. In addition, data may be omitted in some cases. CLINICAL DECISIONS SHOULD BE BASED ON THE PRIMARY CLINICAL RECORDS. [facility] [facility]. provides no warranty or guarantee of the accuracy or completeness of information in this document.
== END 2024-11-10 09:06 | disposition home or self-care (01) ==
LOC: RAD 09:07
PROVIDERS: PCP Family Medicine; Visit Provider Nurse Practitioner Family
DX: M79.605 Pain in left leg (principal); M25.462 Effusion, left knee; M25.562 Pain in left knee
CPT/HCPCS: 73564

== ENCOUNTER 2025-05-03 06:37 | Outpatient (OUT) | payer BC, SELFPAY ==
--- OUTSIDE RECORDS SUMMARY | 2025-05-03 06:42 | XMS_ITS | Clinical Summary ---
Author Organization [facility] Address [id number] [place] [address] Care Team Providers Care Personnel Specialist Name Role Phone Dawna Guillory MD Primary Care Provider [phone] Allergies No known active allergies Medications MedicationSigDispense QuantityRefillsLast FilledStart DateEnd DateStatus irbesartan-hydroCHLOROthiazide (AVALIDE) 150-12.5 mg per tablet Take 1 tablet by mouth daily.Active xucyvuoa-fwtx-PK-calcium &mins (THERAGRAN-M) 9 mg iron-400 mcg tablet Take 1 tablet by mouth daily.Active coenzyme Q10 30 mg capsule Take 30 mg by mouth 3 (three) times a day.Active tamsulosin (FLOMAX) 0.4 mg capsule Take 0.4 mg by mouth daily.Active nabumetone (RELAFEN) 500 mg tablet Take 500 mg by mouth 2 (two) times a day.Active Active Problems No known active problems Family History Medical HistoryRelationNameCommentsDiabetesCousinAlcohol abuseFatherCancerFather oralCancerMaternal AuntleukemiaDiabetesMaternal UncleCancerMotherlungRelation NameStatusCommentsCousinAliveFatherDeceased (Age 50)Maternal AuntDeceased Maternal UncleAliveMotherDeceased (Age 69) Social History Tobacco UseTypesPacks/DayYears UsedDateSmoking Tobacco: FormerSmokeless Tobacco: Never Comments:1990 Alcohol UseStandard Drinks/WeekCommentsYes0 (1 standard drink = 0.6 oz pure alcohol)sociallyChildcareAnswerDate CnhdznthShubbmdyhAecilwt28/16/2020Employment AnswerDate AipzwoliIhmjfcseboEeohxjz80/16/2020Purpose - LifeAnswerDate Recorded Purpose and direction in gckvUumsdig12/11/2021ex and Gender InformationValue Date RecordedSex Assigned at DkjxpImtl07/27/2021 4:08 PM ESTLegal SexMale 06/01/2019 1:33 PM ESTGender IdentityNot on fileSexual OrientationStraight 05/12/2021 4:08 PM EST Last Filed Vital Signs Vital SignReadingTime TakenCommentsBlood Xzovgfth220/76005/28/2021 11:15 AM EST Kwuvu979705/28/2021 11:15 AM AGOMydaidpqbgn69.6 ??C (97.8 ??F)05/28/2021 8:40 AM ESTRespiratory Gerw207705/28/2021 10:42 AM ESTOxygen Nmedolucns43%05/28/2021 11:15 AM ESTInhaled Oxygen Concentration--Lrfwjd305.2 kg (243 lb)05/28/2021 8:40 AM PQBAyimbn412.5 cm (6' 3 )05/28/2021 8:40 AM ESTBody Mass Index30.37005/28/2021 8:40 AM EST Plan of Treatment Health MaintenanceDue DateLast DoneCommentsDepression Wrzttpzvs44/07/1973Tobacco Jzszilspf02/07/1973Adult BMI Mognllgan21/07/1979DTaP,Tdap and Td Vaccines (1 - Tdap)08/22/1979Zoster (Shingles) Vaccine (1 of 2)2010COVID-19 Vaccine ( season)/05/2020, 2020, 07/31/2020Influenza Vaccine 512/, 04/22/2021, 02/15/2019, Additional history existsRSV ( or age 60+ yrs) (1 - 1-dose 75+ series)08/22/2035 [employer] Not on file Insurance Care Teams Team MemberRelationshipSpecialtyStart DateEnd Date Dawna Guillory MD PCP - GeneralFamily Medicine06/02/19
--- OUTSIDE RECORDS SUMMARY | 2025-05-03 06:42 | XMS_ITS | Clinical Summary ---
Author Organization [facility] Address [address] [place] [address] Care Team Providers Care Chemical Laboratory Technician Name Role Phone [place] CNP Primary Care Provider [phone] Allergies No known active allergies Medications MedicationSigDispense QuantityRefillsLast FilledStart DateEnd DateStatus Irbesartan-Hydrochlorothiazide 150-12.5 mg per tablet Take 1 tablet by mouth.Active therapeutic multivitamin w/ iron (THERAGRAN-M) 9 mg iron-400 mcg tablet Take 1 tablet by mouth.Active coenzyme Q10 30 mg capsule Take 30 mg by mouth.Active acetaminophen (TYLENOL) 325 mg tablet Take 2 tablets by mouth q 4 HR.Active Active Problems ProblemNoted DateDiagnosed DateRadiculopathy, lumbar qfskus3901/30/2025Pain of both shoulder xswpfa1209/11/2019Joint xqyobavx38/27/2020Abnormal EMG09/11/2019 Npkkwyg4507/12/2019Stiffness of joint07/12/20197361Yclhcueq72/26/2020Disturbance of skin ashssmlui42/26/2020Concern about neurological disease without diagnosis 07/12/2019 Encounters DateTypeDepartmentCare TfkaRshlvwzojrx12/13/2025 Get Medical Advice [facility] [email or web address] [place] [address] Shaina Zhu, MARIA EUGENIA.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 Kelly (Orthopedics) for knee02/22/2025 9:30 AM EDT Office Visit [facility] [email or web address] [address] [place] [address] Shaina Zhu APRN.CHIEF METER READER Chronic midline low back pain, unspecified whether sciatica present (Primary Dx); Numbness in both legs; Lumbar spondylosis; Spinal stenosis of lumbar region, unspecified whether neurogenic claudication present; Radiculopathy, lumbar xhxubf7102/22/20258419Iflqrs33/06/4708Zdycrr98/18/2025Telephone [facility] [address] [place] [address] Beny Leavitt, DO Post Injection Questionsfrom Last 3 Months Family History Medical HistoryRelationCommentsoral cancerFatherCancerMotherLung cancer SarcoidosisMotherbone cancerPaternal GrandfatherRheumatologic diseaseNo Family HistoryRelationStatusCommentsFatherMotherDeceasedPaternal Grandfather Social History Tobacco UseTypesPacks/DayYears UsedDateSmoking Tobacco: NeverSmokeless Tobacco: NeverAlcohol UseStandard Drinks/WeekCommentsNot Currently0 (1 standard drink = 0.6 oz pure alcohol)PHQ-2AnswerDate RecordedPHQ-2 hwjyl965rea Deprivation IndexAnswerDate RecordedNational Score (1-100), lower number is lower pmyt317712/22/2024State Score (1-10), lower number is lower xhrg87112/22/2024 Data from: https://www.neighborhoodatlas.[facility].edu/. Last address used for [address] [facility]12/22/2024Sex and Gender InformationValueDate RecordedSex Assigned at BirthNot on fileLegal ZjrHbrg45/02/2012 8:32 AM EST Gender IdentityNot on fileSexual OrientationNot on fileOccupationIndustryJob Start DateJob End DateTower AutomotiveNot on fileNot on fileNot on file Last Filed Vital Signs Vital SignReadingTime TakenCommentsBlood Mpohimmb516/7301/30/2025 12:54 PM EDT Xfosk037701/30/2025 12:54 PM EGLPnueysupicz84.2 ??C (97.1 ??F)01/30/2025 10:00 AM EDTRespiratory Woex793801/30/2025 12:54 PM EDTOxygen Fjeouzxqsj22%01/30/2025 12:54 PM EDTInhaled Oxygen Concentration--Xafuze765 kg (233 lb 11 oz)11/29/2024 7:58 AM TYSNpugzb330.5 cm (6' 3 )11/29/2024 7:58 AM EDTBody Mass Index29.21011/29/2024 7:58 AM EDT Plan of Treatment Health MaintenanceDue DateLast DoneCommentsAnxiety Oejidfkzc59/07/1979Depression Hkosdfsip61/07/1979HIV Dynztdbnb32/07/1979Hepatitis C Lxgyhkcoi33/07/1979 DTaP,Tdap,Td Vaccine (1 - Tdap)08/22/1979Lipid Dftzyfpod76/07/1996CT Yvgsdlgrclux03/07/2006Cologuard (FIT-DNA)08/21/20050068Lboxwyupchk72/07/2006 Colorectal Cancer Tyhafzmyy01/07/2006Fecal Occult Blood2005Sigmoidoscopy 2005Pneumococcal Vaccine: 50+ (1 of 1 - PCV)2010RSV Vaccine (1 - Risk 50-74 years 1-dose series)2010Diabetes Gbotocnop29/27/925788/, 07/06/2019, 06/02/2019Covid-19 Vaccine (2024- season)/05/2021, 04/16/2021, 2020, Additional history existsInfluenza Vaccine (#1) 511/, 02/22/2023, 04/29/2021, Additional history existsProstate Cancer Screening Baalhxxael46hingrix VaccineCompleted 01/19/2025, 11/07/2024 Procedures Procedure NamePriorityDate/TimeAssociated DiagnosisCommentsHEMOGLOBIN M9BEaaqait 07/06/2019 3:17 PM EST Neuropathy (HCC) Myalgia Weakness Abnormal glucose from Last 3 Months or Most Recently Relevant to Health Maintenance Results * (ABNORMAL) HGB A1C (07/06/2019 3:17 PM EST)ComponentValueRef RangeTest Method Analysis TimePerformed AtPathologist SignatureHemoglobin A1C5.7(H)4.3 - 5.6 % 07/07/2019 5:19 AM [facility] LaboratoriesComment: [place] Diabetes Association guidelines indicate that patients with HgbA1c in the range 5.7-6.4% are at increased risk for development of diabetes, and intervention by lifestyle modification may be beneficial. HgbA1c greater or equal to 6.5% is considered diagnostic of diabetes. Estimated Average Njwgeir678eq/dL07/07/2019 5:19 AM [facility] LaboratoriesComment: eAG: (Estimated average glucose) is a calculated value from HgbA1c and is guest experience representative of the average blood glucose level in the last 2-3 month period. Specimen (Source)Anatomical Location / LateralityCollection Method / Volume Collection TimeReceived TimeBlood specimen (specimen)WHOLE BLOOD SPECIMEN / Ztjdztf0807/06/2019 3:17 PM EST07/06/2019 3:19 PM EST Narrative Authorizing ProviderResult TypeResult StatusJocarl Manzo MDLABORATORYFinal Result Performing OrganizationAddressCity/State/ZIP CodePhone Number [facility] [address] [place] [address] [facility] [address] [place] [address] from Last 3 Months or Most Recently Relevant to Health Maintenance Insurance Care Teams Team MemberRelationshipSpecialtyStart DateEnd Date [place] CNP [address] [place] [address] PCP - GeneralFamily Medicine12/28/24
--- OUTSIDE RECORDS SUMMARY | 2025-05-03 06:43 | XMS_ITS | Clinical Summary ---
Author Organization [facility] Address [address] [place] [address] Care Team Providers Care Advertising Sales Consultant Name Role Phone Jemal Gill MD Primary Care Provider [phone] Allergies No known active allergies Medications MedicationSigDispense QuantityRefillsLast FilledStart DateEnd DateStatus irbesartan-hydroCHLOROthiazide (Avalide) 150-12.5 MG tablet 03/01/2023ctive diclofenac sodium (Voltaren) 1 % gel 10/19/2022ctive Myrbetriq 25 MG 24 hr tablet Take 25 mg by mouth DailyActive triamcinolone (Kenalog) 0.1 % cream Indications:Other atopic dermatitisApply topically 2 (two) times a day as needed for rash 454 g 5Active Active Problems No known active problems Family History Medical HistoryRelationNameCommentsAlcohol abuseBrotherAsthmaBrotherCancerFather CancerMotherRelationNameStatusCommentsBrotherAliveFatherDeceasedMotherDeceased Social History Tobacco UseTypesPacks/DayYears UsedDateSmoking Tobacco: FormerCigarettes Tobacco Cessation:Counseling Given: Not Answered Comments:Last smoked: >20 years Alcohol UseStandard Drinks/WeekCommentsNot Currently0 (1 standard drink = 0.6 oz pure alcohol)Sex and Gender InformationValueDate RecordedSex Assigned at Not on fileLegal PsxHbwd0907/29/2022 7:07 PM EDTGender IdentityNot on fileSexual OrientationNot on file Last Filed Vital Signs Vital SignReadingTime TakenCommentsBlood Rfibrgqe466/9512 12:00 PM EST Pulse--Temperature--Respiratory Rate--Oxygen Saturation--Inhaled Oxygen Concentration--Pblzxf414 kg (241 lb)07/20/2023 2:05 PM PFUIixpib757.4 cm (6' 1 ) 07/20/2023 2:05 PM ESTBody Mass Index31.8007/20/2023 2:05 PM EST Plan of Treatment Health MaintenanceDue DateLast DoneCommentsCT Pxlfvtswiyjk55/07/1961FIT-DNA 1960FIT1960FOBT08/21/19601673Yjryktznsboxu75/07/1961OVID-19 Vaccine ( season), 04/16/2021, 2020, Additional history existsInfluenza Vaccine (#1)/, 02/22/2023, 04/29/2021, Additional history ynkrvqYnvhlxqjfdh01olorectal Cancer Qdkfqfjld28/07/2033Pneumococcal Vaccine: Pediatrics (0 to 5 Years) and At-Risk Patients (6 to 64 Years)Aged OutNo longer eligible based on patient's age to complete this topic Insurance Care Teams Team MemberRelationshipSpecialtyStart DateEnd Jemal Gill MD PCP - GeneralFamily Medicine10/20/22
[2025-05-03 07:02] LABS: Hematocrit 40.3 % (42.0-54.0); Hemoglobin 13.8 g/dL (14.0-18.0); Immature Granulocytes Abs Auto 0.01 10^3/uL (0.00-0.03); Immature Granulocytes Pct Auto 0.1 % (0.0-0.5); Lymphocytes Absolute Auto 1.5 10^3/uL (1.2-3.8); Mean Corpuscular HGB Conc 34.2 g/dL (29.9-35.2); Mean Corpuscular Hemoglobin 31.0 pg (25.9-34.0); Mean Corpuscular Volume 90.6 fL (80.0-94.0); Platelet Count 320 10^3/uL (150-450); Red Blood Count 4.45 10^6/uL (4.70-6.10); White Blood Count 7.4 10^3/uL (4.0-11.0)
[2025-05-03 07:54] LABS: Cholesterol 207 mg/dL (<=200); HDL Cholesterol 70 mg/dL (40-60); TSH W/ REFLEX FT4 1.806 uIU/mL (0.358-3.740); Triglycerides 48 mg/dL (<=150); VLDL CHOLESTEROL 9.6 mg/dL
== END 2025-05-03 06:38 | disposition home or self-care (01) ==
LOC: LAB 06:40
PROVIDERS: PCP Student in an Organized Health Care Education/Training Program; Visit Provider Student in an Organized Health Care Education/Training Program
DX: I49.9 Cardiac arrhythmia, unspecified (principal); I10 Essential (primary) hypertension; G47.30 Sleep apnea, unspecified; Z13.220 Encounter for screening for lipoid disorders
CPT/HCPCS: 36415; 80061; 84443; 85025